=== PATIENT | female | born 1980 | race Caucasian/White ===

== ENCOUNTER 2022-04-24 22:11 | Inpatient (IN) | payer OTHER, SELFPAY ==
[2022-04-24] MEDS: ALPRAZolam 0.5 MG TABLET 1 MG PO (23:43)
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
[2022-04-25 06:54] VITALS: BP 111/73; PULSE 59; RESP 14; TEMP 37.1; O2SAT 100
[2022-04-25] MEDS: ALPRAZolam 0.5 MG TABLET 1 MG PO ×2 (08:33→15:16)
--- NOTE | 2022-04-25 08:45 | PM.EVENT ---
Event Note Date of Service: 04/25/22 Event Note: Asked to see patient for routine Medical H&P. Arrived on the unit and patient was seen screaming and yelling in the hallway. Belligerent and unable to be redirected. No appropriate to complete consult at this time. Please notify when patient is more calm and cooperative for H&P.
[2022-04-25] MEDS: HaloperidoL 5 MG TABLET PO ×2 (08:53→15:16)
[2022-04-25] MEDS: LORazepam 1 MG TABLET PO ×3 (08:53→20:29)
[2022-04-25] MEDS: PARoxetine HCL 10 MG TABLET PO (08:53)
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
[2022-04-25 20:02] VITALS: BP 126/57; PULSE 62; RESP 18; TEMP 36.9; O2SAT 97
[2022-04-25] MEDS: Acetaminophen 325 MG TABLET 650 MG PO (20:29)
[2022-04-25] MEDS: ALPRAZolam 0.5 MG TABLET PO (20:29)
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
[2022-04-26 06:00] VITALS: BP 137/88; PULSE 88; RESP 20; TEMP 36.2; O2SAT 99
--- NOTE | 2022-04-26 09:00 | ECG_ITS ---
Test Reason : QTC CHECK Blood Pressure : / mmHG Vent. Rate : 070 BPM Atrial Rate : 070 BPM P-R Int : 110 ms QRS Dur : 088 ms QT Int : 382 ms P-R-T Axes : 058 074 062 degrees QTc Int : 412 ms Sinus rhythm with short IA Otherwise normal ECG No previous ECGs available Referred By: Althea Trevino Electronically Signed By:Joon Hernandez
[2022-04-26] MEDS: LORazepam 1 MG TABLET PO (09:39)
[2022-04-26] MEDS: ALPRAZolam 0.5 MG TABLET PO ×3 (09:40→20:23)
[2022-04-26] MEDS: Benztropine Mesylate 1 MG TABLET PO (12:41)
--- NOTE | 2022-04-26 16:27 | P.PNPSI_ITS ---
Subjective Subjective Date of Service: 04/26/22 Reason For Visit: Bipolar D/O w/psychosis; substance abuse-benzodiaz Subjective Notes: Conditional Voluntary Healthcare Proxy: No Guardianship: No Medical Problems Affecting Mental Status: No Interim History: Calmer, clearer at times today, less angry and labile. Refused Olanzapine, using Haldol but with reports of EPS, stiffness of neck, face. Benztropine ordered but pt refused. Lamictal initiated. Xanax decrease to 0.5 mg bid, Adderall decreased to 20 mg daily. Visable in milieu-accepts brief interactions and is more social with peers to day. Medication Compliance: Intermittent Side effects from medications: Yes (EPS) Attending Groups: Yes Review of Systems Acute medical concerns: No Medical Review of Systems: unchanged Review of Systems Reports behavioral changes Psychiatric: Reports behavioral changes, Reports mood swings and Reports paranoia Mental Status Exam Mental Status Exam Patient Appearance: Appropriate Patient Orientation: Person, Place and Situation Level of Consciousness: Alert Patient Behavior: Guarded, Suspicious, Confused and Isolative Mood Description: Constricted Affect Description: Constricted Patient Cognition Impaired: No Ability to Follow Directions: Good Speech Pattern: Spontaneous Speech and Soft-Spoken Memory Description: Remote Impaired and Episodic Impaired Hallucinations: None Delusions: Paranoid Ideation Perceptual Disturbances: Depersonalization and Derealization Thought Content: positive for [place] Depressive Symptoms: Increased Irritability, Unhappiness, Loss of Energy and Difficulty Concentrating Abnormal Motor Activity Signs and Symptoms: Restlessness Judgement: Fair Diagnostics Vital Signs (24Hr): Vital Signs - 24 hr 04/25/22 20:02 04/26/22 06:00 Temperature 98.4 F 97.2 F Pulse Rate 62 88 Respiratory Rate 18 20 Blood Pressure 126/57 L 137/88 Pulse Oximetry 97 99 Oxygen Delivery Method Room Air Room Air Medications Medications Current Medications Acetaminophen (Acetaminophen 325 Mg Tablet) 650 mg PO Q6H PRN PRN Reason: Headache/Pain Mild Scale (1-3) Last Admin: 04/25/22 20:29 Dose: 650 mg Al Hydroxide/Mg Hydroxide (Magnesium Hydrox/Alum Hydrox 30 Ml Oral.Susp) 30 ml PO Q6H PRN PRN Reason: Heartburn/Nausea Alprazolam (Alprazolam 0.5 Mg Tablet) 0.5 mg PO TID NEVAEH Last Admin: 04/26/22 15:00 Dose: 0.5 mg Amphetamine/Dextroamphetamine (Dextroamphetamine/Amphetamine Xr 10 Mg Cap.Er.24h) 20 mg PO DAILY [facility] Last Admin: 04/26/22 11:00 Dose: Not Given Benztropine Mesylate (Benztropine Mesylate 1 Mg Tablet) 1 mg PO BID [facility] Last Admin: 04/26/22 12:41 Dose: 1 mg Haloperidol (Haloperidol 5 Mg Tablet) 5 mg PO Q4H PRN PRN Reason: psychosis, agitation Last Admin: 04/25/22 15:16 Dose: 5 mg Hydroxyzine HCl (Hydroxyzine Hcl 25 Mg Tablet) 25 mg PO BEDTIME PRN PRN Reason: Anxiety Lorazepam (Lorazepam 1 Mg Tablet) 1 mg PO Q4H PRN PRN Reason: agitation Last Admin: 04/26/22 09:39 Dose: 1 mg Magnesium Hydroxide (Milk Of Magnesia 30 Ml Oral.Susp) 30 ml PO DAILY PRN PRN Reason: Constipation Olanzapine (Olanzapine 10 Mg Tablet) 10 mg PO BEDTIME [facility] Last Admin: 04/25/22 22:08 Dose: Not Given Paroxetine HCl (Paroxetine Hcl 10 Mg Tablet) 10 mg PO DAILY [facility] Last Admin: 04/26/22 11:00 Dose: Not Given Trazodone HCl (Trazodone Hcl 50 Mg Tablet) 50 mg PO BEDTIME PRN PRN Reason: Insomnia Allergies Allergies Allergy/AdvReac Type Severity Reaction Status Date / Time cat dander [cats] Allergy Itchy Eyes Verified 04/25/22 00:28 dog dander [dogs] Allergy Itchy Eyes Verified 04/25/22 00:29 Assessment & Plan Assessment & Plan (1) Substance induced mood disorder: Status: Acute Code(s): F19.94 - Other psychoactive substance use, unspecified with psychoactive substance-induced mood disorder (2) Polysubstance abuse: Status: Acute Code(s): F19.10 - Other psychoactive substance abuse, uncomplicated (3) ADHD: Status: Acute Code(s): F90.9 - Attention-deficit hyperactivity disorder, unspecified type Plan Benztropine 1 mg bid to address pt reports of EPS Discontinue Haldol-EPS Continue Paxil, Olanzapine Continue decreased doses of Adderall/Xanax-taper Lamictal 25 mg bid I spent minutes with the patient and/or on the patient floor today, greater than?50% of which was spent counseling/coordinating care. Patient educated on: therapeutic strategies Informed Consent: does not understand Reason for contiued inpatient stay Substantial Risk for: harm to self, harm to others, inability to function and rapid decompensation
[2022-04-26 20:17] VITALS: BP 142/77; PULSE 65; RESP 17; TEMP 37.2; O2SAT 98
[2022-04-26] MEDS: Acetaminophen 325 MG TABLET 650 MG PO (20:22)
[2022-04-26] MEDS: lamoTRIgine 25 MG TABLET PO (20:23)
[2022-04-26] MEDS: OLANZapine 10 MG TABLET PO (20:23)
[2022-04-27 06:42] VITALS: BP 120/63; PULSE 42; RESP 16; TEMP 36.9; O2SAT 99
[2022-04-27] MEDS: ALPRAZolam 0.5 MG TABLET PO ×3 (09:55→20:22)
[2022-04-27] MEDS: Benztropine Mesylate 1 MG TABLET PO ×2 (09:55→20:22)
[2022-04-27] MEDS: Dextroamphetamine/Amphetamine XR 10 MG CAP.ER.24H 20 MG PO (09:55)
[2022-04-27] MEDS: lamoTRIgine 25 MG TABLET PO ×2 (09:55→20:22)
[2022-04-27] MEDS: PARoxetine HCL 10 MG TABLET PO (09:55)
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
[2022-04-27] MEDS: Milk of Magnesia 30 ML ORAL.SUSP PO (15:49)
[2022-04-27 18:00] VITALS: BP 167/91; PULSE 68; RESP 16; TEMP 36.8; O2SAT 100
[2022-04-27] MEDS: OLANZapine 10 MG TABLET PO (20:22)
[2022-04-27] MEDS: LORazepam 1 MG TABLET PO (22:45)
[2022-04-28 06:00] VITALS: BP 152/88; PULSE 67; RESP 16; TEMP 36.7; O2SAT 97
[2022-04-28] MEDS: Dextroamphetamine/Amphetamine XR 10 MG CAP.ER.24H 20 MG PO (09:34)
[2022-04-28] MEDS: lamoTRIgine 25 MG TABLET PO ×2 (09:35→20:40)
[2022-04-28] MEDS: Benztropine Mesylate 1 MG TABLET PO ×2 (09:35→20:41)
[2022-04-28] MEDS: PARoxetine HCL 10 MG TABLET PO (09:35)
[2022-04-28] MEDS: ALPRAZolam 0.5 MG TABLET PO ×3 (09:35→20:41)
[2022-04-28] MEDS: LORazepam 1 MG TABLET PO ×2 (11:10→20:40)
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
[2022-04-28 18:00] VITALS: BP 116/76; PULSE 100; TEMP 36.7; O2SAT 97
[2022-04-28] MEDS: OLANZapine 10 MG TABLET PO (20:40)
[2022-04-29 06:00] VITALS: BP 139/86; PULSE 72; RESP 16; TEMP 36.9; O2SAT 100
[2022-04-29] MEDS: lamoTRIgine 25 MG TABLET PO ×2 (08:32→19:29)
[2022-04-29] MEDS: ALPRAZolam 0.5 MG TABLET PO ×2 (08:32→14:32)
[2022-04-29] MEDS: PARoxetine HCL 10 MG TABLET PO (08:32)
[2022-04-29] MEDS: Dextroamphetamine/Amphetamine XR 10 MG CAP.ER.24H 20 MG PO (08:32)
[2022-04-29] MEDS: Benztropine Mesylate 1 MG TABLET PO ×2 (08:32→19:29)
[2022-04-29] MEDS: LORazepam 1 MG TABLET PO ×2 (10:33→19:29)
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
[2022-04-29] MEDS: OLANZapine 7.5 MG TABLET 15 MG PO (19:29)
[2022-04-29] MEDS: ALPRAZolam 0.25 MG TABLET PO (19:58)
[2022-04-29 20:19] VITALS: BP 145/89; PULSE 78; RESP 18; TEMP 37.1; O2SAT 98
[2022-04-29] MEDS: Dry Mouth Spray 60 ML SPRAY 1 SPRAY MUCOUS MEM (20:21)
[2022-04-30 06:00] VITALS: BP 126/70; PULSE 72; RESP 18; TEMP 36.7; O2SAT 95
[2022-04-30] MEDS: Dextroamphetamine/Amphetamine XR 5 MG CAP.ER.24H 15 MG PO (08:02)
[2022-04-30] MEDS: ALPRAZolam 0.25 MG TABLET PO ×3 (08:02→20:16)
[2022-04-30] MEDS: lamoTRIgine 25 MG TABLET PO ×2 (08:03→20:15)
[2022-04-30] MEDS: PARoxetine HCL 10 MG TABLET PO (08:03)
[2022-04-30] MEDS: Benztropine Mesylate 1 MG TABLET PO ×2 (08:03→20:16)
--- NOTE | 2022-04-30 14:33 | PC.NURSE ---
Patient approached T/W stating, I know whats going on around here , before T/W could answer she began staring at the computer screen and questioned what was on the screen.(random pt comments recognizing staff). Pt then said, I',m really angry, red in face, and became tearful. T/W asked what was upsetting here and she said, don't play me like that, I can read your mind . Pt then walked away, went up the rose and sat on the floor.
[2022-04-30] MEDS: LORazepam 1 MG TABLET PO (16:52)
[2022-04-30 16:55] VITALS: BP 123/76; PULSE 72; TEMP 36.7
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
[2022-04-30] MEDS: OLANZapine 7.5 MG TABLET 15 MG PO (20:15)
[2022-04-30] MEDS: Acetaminophen 325 MG TABLET 650 MG PO (20:17)
[2022-05-01 06:34] VITALS: BP 121/66; PULSE 76; RESP 17; TEMP 36.6; O2SAT 98
[2022-05-01] MEDS: Dextroamphetamine/Amphetamine XR 5 MG CAP.ER.24H 15 MG PO (08:41)
[2022-05-01] MEDS: Benztropine Mesylate 1 MG TABLET PO ×2 (08:42→22:45)
[2022-05-01] MEDS: PARoxetine HCL 10 MG TABLET PO (08:42)
[2022-05-01] MEDS: lamoTRIgine 25 MG TABLET PO ×2 (08:42→22:46)
[2022-05-01] MEDS: ALPRAZolam 0.25 MG TABLET PO ×3 (08:42→22:46)
[2022-05-01] MEDS: Dry Mouth Spray 60 ML SPRAY 1 SPRAY MUCOUS MEM (11:07)
[2022-05-01] MEDS: LORazepam 1 MG TABLET PO (13:10)
--- NOTE | 2022-05-01 13:37 | P.CONGS_ITS ---
History of Present Illness Consult details Consult date: 05/01/22 Narrative: 41-year-old female admitted to the psych unit because of bipolar disorder with psychosis, referred to me because of a cyst on the right buttock. She says that she has had an area of pain, swelling tenderness for several days now on the right buttock. She says that this started to drain last night. She says she has history of cysts on the other areas of her buttocks in the past. She never had an I and D before. She otherwise says she feels well overall. She denies any fevers. Review of Systems Constitutional: Constitutional: Denies chills and Denies fever(s) Cardiovascular: Cardiovascular: Denies chest pain, Denies dyspnea and Denies dyspnea on exertion Respiratory: Respiratory: Denies cough, Denies dyspnea and Denies dyspnea on exertion Gastrointestinal: Gastrointestinal: Denies hematochezia and Denies change in bowel habits Genitourinary: Genitourinary: Denies hematuria Musculoskeletal: Musculoskeletal: Denies back pain and Denies limited range of motion Neurologic: Denies focal weakness and Denies convulsions Psychiatric: Psychiatric: Reports depression and Reports mood swings PMFSH Social History Social History Household Members: Other Household Members Other:: pt reports recently becoming homeless Housing: Homeless Do you presently have visiting nurse or other home services: No Unable to assess alcohol history related to: Unknown Patient Tobacco Use Status: Never used Tobacco e-Cigarette/Vaping Use: Never Used Use of substances other than those prescribed or required for medical reasons: Yes Substance Use Type: Amphetamines, Crack/Cocaine, Hallucinogens, Heroin, Marijuana, Opiates and Prescription Drugs Substance Use Frequency: Chronic Longstanding Last Used Substance: Days (ago) Currently Displaying Signs/Symptoms of Drug Intoxication Withdrawal: No Any prior treatment program specific to substance use: Yes Have you been hit, kicked, punched, or otherwise hurt by someone within the past year? If so, by whom?: No (pt refused to answer) Do you feel safe in your current relationship?: Yes Is there a partner from a previous relationship who is making you feel unsafe now?: No Are you made to feel afraid or neglected: Yes (feels like her family is after her) Advance Directives: No Advance Directives Information Provided: No Advance Directives on File: No Do you have thoughts of harming others: None Do you have a plan to hurt others: No Plan Recently lost weight without trying: Unsure Eating poorly because of decreased appetite: Yes Nutrition Risks: No Nutritional Risk Patient : No : No Poor oral hygiene: No service: No Sexual orientation: Straight/Heterosexual Meds Allergies Allergy/AdvReac Type Severity Reaction Status Date / Time cat dander [cats] Allergy Itchy Eyes Verified 04/25/22 00:28 dog dander [dogs] Allergy Itchy Eyes Verified 04/25/22 00:29 Active Medications: Current Medications Acetaminophen (Acetaminophen 325 Mg Tablet) 650 mg PO Q6H PRN PRN Reason: Headache/Pain Mild Scale (1-3) Last Admin: 04/30/22 20:17 Dose: 650 mg Al Hydroxide/Mg Hydroxide (Magnesium Hydrox/Alum Hydrox 30 Ml Oral.Susp) 30 ml PO Q6H PRN PRN Reason: Heartburn/Nausea Alprazolam (Alprazolam 0.25 Mg Tablet) 0.25 mg PO TID [facility] Last Admin: 05/01/22 08:42 Dose: 0.25 mg Amphetamine/Dextroamphetamine (Dextroamphetamine/Amphetamine Xr 5 Mg Cap.Er.24h) 15 mg PO DAILY [facility] Last Admin: 05/01/22 08:41 Dose: 15 mg Benztropine Mesylate (Benztropine Mesylate 1 Mg Tablet) 1 mg PO BID [facility] Last Admin: 05/01/22 08:42 Dose: 1 mg Hydroxyzine HCl (Hydroxyzine Hcl 25 Mg Tablet) 25 mg PO BEDTIME PRN PRN Reason: Anxiety Lamotrigine (Lamotrigine 25 Mg Tablet) 25 mg PO BID [facility] Last Admin: 05/01/22 08:42 Dose: 25 mg Lorazepam (Lorazepam 1 Mg Tablet) 1 mg PO Q4H PRN PRN Reason: agitation Last Admin: 05/01/22 13:10 Dose: 1 mg Magnesium Hydroxide (Milk Of Magnesia 30 Ml Oral.Susp) 30 ml PO DAILY PRN PRN Reason: Constipation Last Admin: 04/27/22 15:49 Dose: 30 ml Olanzapine (Olanzapine 5 Mg Tablet) 5 mg PO Q4H PRN PRN Reason: lability, agitation Olanzapine (Olanzapine 7.5 Mg Tablet) 15 mg PO BEDTIME [facility] Last Admin: 04/30/22 20:15 Dose: 15 mg Olanzapine (Olanzapine 5 Mg Tablet) 5 mg PO DAILY [facility] Saliva Substitute (Dry Mouth [place] 60 Ml [place]) 1 spray MUCOUS MEM Q2H PRN PRN Reason: Dry Mouth Last Admin: 05/01/22 11:07 Dose: 1 spray Trazodone HCl (Trazodone Hcl 50 Mg Tablet) 50 mg PO BEDTIME PRN PRN Reason: Insomnia Home Medications Medication Instructions Recorded Confirmed Last Taken Type alprazolam 1 mg tablet (Xanax) 1 mg PO TID 04/25/22 04/25/22 01/14/22 History dextroamphetamine-amphetamine ER 15 mg PO BID 04/25/22 04/25/22 01/14/22 History 15 mg 24hr capsule,extend release (Adderall XR) paroxetine HCl 10 mg tablet (Paxil) 10 mg PO DAILY 04/25/22 04/25/22 01/14/22 History Physical Exam Vital Signs: Vital Signs: Last Vital Signs Temp 97.8 F 05/01/22 06:34 Pulse 76 05/01/22 06:34 Resp 17 05/01/22 06:34 BP 121/66 05/01/22 06:34 Pulse Ox 98 05/01/22 06:34 O2 Del Method 05/01/22 06:34 Const: General: comfortable and no acute distress Orientation/consciousness: patient oriented x3 Neck: Neck: Yes no lymphadenopathy Resp: Auscultation: clear to auscultation bilaterally Cardio: Rhythm: regular rhythm GI: Palpation (GI): Soft to palpation, nontender and no guarding Back/Spine/Pelvis: Other: Right buttock with area of cystic induration about 2.5 cm, spontaneously draining, some redness of the pending skin localized to the cyst Neuro: General: patient oriented x3 Results Labs Labs: All other labs normal. Assessment and Plan (1) Cyst of buttocks: Status: Acute She has an area of cystic induration with drainage on the right buttock. This appears to be consistent with an infected dermal cyst. I was able to express pus from the area. I am going to recommend starting her on oral antibiotics with doxycycline. I will see her again tomorrow to re-examine this. If this does not appear improved or not adequately draining, I may do an I and D at bedside under local anesthesia. I have instructed her to do warm compresses the area 3 times a day. Procedures Date of Service Date of Service: 05/01/22
[2022-05-01] MEDS: Acetaminophen 325 MG TABLET 650 MG PO (14:00)
--- NOTE | 2022-05-01 18:03 | HO.PSYCHPN ---
Subjective Subjective Date of Service: 05/01/22 Reason For Visit: Bipolar D/O w/psychosis; substance abuse-benzodiaz Subjective Notes: 3 Day Healthcare Proxy: No Guardianship: No Medical Problems Affecting Mental Status: No Interim History: Clearer today-less lability, decrease in confusion. Discussed practical discharge planning, agreed to retract TDN and continue to work with team on medications and treatment planning. Pt discussed some of her discharge options and concerns. No grandiosity, no delusional content, but able to have a focused grounded discussion of her needs and her care. Seen by Dr. Hanna for initial treatment of abscess on her buttock. Medication Compliance: Yes Side effects from medications: No Attending Groups: Intermittent Review of Systems Acute medical concerns: No Abscess on her buttock is being addressed by Dr. Hanna. Medical Review of Systems: unchanged Review of Systems Psychiatric: Reports anxiety, Reports mood swings, Reports homicidal ideation (denies) and Reports suicidal ideation (denies) Mental Status Exam Mental Status Exam Patient Appearance: Appropriate Patient Orientation: Person, Place, Time and Situation Level of Consciousness: Alert Patient Behavior: Talkative, Cooperative and Good Eye Contact Mood Description: Appropriate Affect Description: Constricted Patient Cognition Impaired: No Ability to Follow Directions: Good Speech Pattern: Spontaneous Speech Memory Description: Intact Hallucinations: None Delusions: Not Present Thought Process: Intact and Goal Oriented Thought Content: positive for Intact, positive for Circumstantial and positive for Goal Oriented Judgement: Good Diagnostics Vital Signs (24Hr): Vital Signs - 24 hr 05/01/22 06:34 Temperature 97.8 F Pulse Rate 76 Respiratory Rate 17 Blood Pressure 121/66 Pulse Oximetry 98 Oxygen Delivery Method Room Air Medications Medications Current Medications Acetaminophen (Acetaminophen 325 Mg Tablet) 650 mg PO Q6H PRN PRN Reason: Headache/Pain Mild Scale (1-3) Last Admin: 05/01/22 14:00 Dose: 650 mg Al Hydroxide/Mg Hydroxide (Magnesium Hydrox/Alum Hydrox 30 Ml Oral.Susp) 30 ml PO Q6H PRN PRN Reason: Heartburn/Nausea Alprazolam (Alprazolam 0.25 Mg Tablet) 0.25 mg PO TID [facility] Last Admin: 05/01/22 14:00 Dose: 0.25 mg Amphetamine/Dextroamphetamine (Dextroamphetamine/Amphetamine Xr 5 Mg Cap.Er.24h) 15 mg PO DAILY [facility] Last Admin: 05/01/22 08:41 Dose: 15 mg Benztropine Mesylate (Benztropine Mesylate 1 Mg Tablet) 1 mg PO BID [facility] Last Admin: 05/01/22 08:42 Dose: 1 mg Doxycycline Hyclate (Doxycycline Hyclate 100 Mg Tablet) 100 mg PO Q12H [facility] Hydroxyzine HCl (Hydroxyzine Hcl 25 Mg Tablet) 25 mg PO BEDTIME PRN PRN Reason: Anxiety Lamotrigine (Lamotrigine 25 Mg Tablet) 25 mg PO BID [facility] Last Admin: 05/01/22 08:42 Dose: 25 mg Lorazepam (Lorazepam 1 Mg Tablet) 1 mg PO Q4H PRN PRN Reason: agitation Last Admin: 05/01/22 13:10 Dose: 1 mg Magnesium Hydroxide (Milk Of Magnesia 30 Ml Oral.Susp) 30 ml PO DAILY PRN PRN Reason: Constipation Last Admin: 04/27/22 15:49 Dose: 30 ml Olanzapine (Olanzapine 5 Mg Tablet) 5 mg PO Q4H PRN PRN Reason: lability, agitation Olanzapine (Olanzapine 7.5 Mg Tablet) 15 mg PO BEDTIME [facility] Last Admin: 04/30/22 20:15 Dose: 15 mg Olanzapine (Olanzapine 5 Mg Tablet) 5 mg PO DAILY [facility] Paroxetine HCl (Paroxetine Hcl 10 Mg Tablet) 5 mg PO DAILY [facility] Stop: 05/07/22 10:00 Saliva Substitute (Dry Mouth [place] 60 Ml [place]) 1 spray MUCOUS MEM Q2H PRN PRN Reason: Dry Mouth Last Admin: 05/01/22 11:07 Dose: 1 spray Trazodone HCl (Trazodone Hcl 50 Mg Tablet) 50 mg PO BEDTIME PRN PRN Reason: Insomnia Allergies Allergies Allergy/AdvReac Type Severity Reaction Status Date / Time cat dander [cats] Allergy Itchy Eyes Verified 04/25/22 00:28 dog dander [dogs] Allergy Itchy Eyes Verified 04/25/22 00:29 Assessment & Plan Assessment & Plan (1) Substance induced mood disorder: Status: Acute Code(s): F19.94 - Other psychoactive substance use, unspecified with psychoactive substance-induced mood disorder (2) ADHD: Status: Acute Code(s): F90.9 - Attention-deficit hyperactivity disorder, unspecified type (3) Polysubstance abuse: Status: Acute Code(s): F19.10 - Other psychoactive substance abuse, uncomplicated Plan Continue current plan of care. Discharge planning I spent minutes with the patient and/or on the patient floor today, greater than?50% of which was spent counseling/coordinating care. Patient educated on: medication risk/benefits and therapeutic strategies Informed Consent: understands and further education needed Reason for contiued inpatient stay Substantial Risk for: rapid decompensation
--- NOTE | 2022-05-01 20:28 | PC.NURSE ---
Patient was given her first dose of Doxycycline today at 1400 and was due again at 0200. This news writer texted the surgeon Dr. Hanna to see if the second dose could be given earlier or tomorrow. Dr. Hanna okay with 2nd dose being given tomorrow 05/02/22 at 0900 to get patient on a manageable schedule. Patient aware.
[2022-05-01 20:40] VITALS: BP 144/68; PULSE 77; TEMP 37.1; O2SAT 98
[2022-05-01] MEDS: OLANZapine 7.5 MG TABLET 15 MG PO (22:46)
[2022-05-02 06:46] VITALS: BP 119/73; PULSE 71; RESP 18; TEMP 36.5; O2SAT 96
[2022-05-02] MEDS: PARoxetine HCL 10 MG TABLET 5 MG PO (07:56)
[2022-05-02] MEDS: lamoTRIgine 25 MG TABLET PO ×2 (07:57→20:41)
[2022-05-02] MEDS: OLANZapine 5 MG TABLET PO (07:58)
[2022-05-02] MEDS: Dextroamphetamine/Amphetamine XR 5 MG CAP.ER.24H 15 MG PO (07:58)
[2022-05-02] MEDS: Benztropine Mesylate 1 MG TABLET PO ×2 (07:58→20:41)
[2022-05-02] MEDS: ALPRAZolam 0.25 MG TABLET PO ×3 (07:58→20:41)
[2022-05-02] MEDS: LORazepam 1 MG TABLET PO (08:50)
[2022-05-02] MEDS: Acetaminophen 325 MG TABLET 650 MG PO ×2 (08:50→20:45)
--- NOTE | 2022-05-02 09:32 | W.PM.OPN ---
Operative Note Operative Note Date of Service: 05/02/22 Narrative: Preop diagnosis: Right buttock abscess Postop diagnosis: Right buttock abscess Procedure: I and D the right buttock abscess under local anesthesia Surgeon: Yobani Hanna MD The patient is a 41 year female with area of drainage, induration on the right buttock. She continues to have pain swelling. Therefore explained to her that it may be best to proceed with an I and D under local anesthesia. I explained to her the technique of this procedure. I reviewed the risks, benefits, and alternatives. She had given verbal consent. She was placed prone on the exam table. The area of the abscess which was about a 3 cm induration with cellulitis prepped and draped. Lidocaine 1% was used for local anesthesia. I made a cruciate incision on 1 area 1st using blade 11. And this was carried down through the full-thickness of the skin subcutaneous fat. An abscess cavity was entered. Probed the cavity with a Q-tip pus was evacuated. There was another separate area of induration just superior to this. This was also infiltrated with lidocaine 1%. I also made a cruciate incision with a blade 11. Another cavity, much smaller in size was entered and because was evacuated I applied dry dressings. Cultures were taken. She tolerated procedure well. There were no complications noted. She may have oral p.o. medications for pain take Tylenol or ibuprofen.
[2022-05-02] MEDS: Ibuprofen 800 MG TABLET PO (14:24)
--- NOTE | 2022-05-02 17:30 | P.PNPSI_ITS ---
Subjective Subjective Date of Service: 05/02/22 Reason For Visit: Bipolar D/O w/psychosis; substance abuse-benzodiaz Subjective Notes: Conditional Voluntary Healthcare Proxy: No Guardianship: No Medical Problems Affecting Mental Status: No Interim History: Pt completed I&D on buttock abscess today. Using Ibuprofen for pain. Pt did learn today that she cannot live with her mother or her children and their father. She also learned that she lost her job with [employer]. Will attempt to draft a letter for absence due to illness. She is angry-asked for prn-Haldol ordered which she refused to take. Vraylar will re-start 05/03 as pt had requested. Zyprexa will continue currently to address mood/picking symtoms. Will transition to Vraylar when titrated. Pt using ACT Gum for dry mouth. Medication Compliance: Yes Side effects from medications: No Attending Groups: Intermittent Review of Systems Acute medical concerns: No Medical Review of Systems: unchanged Review of Systems Psychiatric: Reports anxiety, Reports depression, Reports irritability and Reports mood swings Mental Status Exam Mental Status Exam Patient Appearance: Appropriate Patient Orientation: Person, Place, Time and Situation Level of Consciousness: Alert Patient Behavior: Talkative and Good Eye Contact Mood Description: Anxious and Sad Affect Description: Flat Patient Cognition Impaired: No Ability to Follow Directions: Good Speech Pattern: Spontaneous Speech Memory Description: Episodic Impaired Hallucinations: None Delusions: Paranoid Ideation and Grandiose (Tells team I am a genie in a bottle ) Thought Process: Distracted Thought Content: positive for Suicidal Ideation (denies) and positive for Homicidal Ideation (denies) Judgement: Fair Diagnostics Vital Signs (24Hr): Vital Signs - 24 hr 05/01/22 20:40 05/02/22 06:46 Temperature 98.8 F 97.7 F Pulse Rate 77 71 Respiratory Rate 18 Blood Pressure 144/68 H 119/73 Pulse Oximetry 98 96 Oxygen Delivery Method Room Air Room Air Medications Medications Current Medications Acetaminophen (Acetaminophen 325 Mg Tablet) 650 mg PO Q6H PRN PRN Reason: Headache/Pain Mild Scale (1-3) Last Admin: 05/02/22 08:50 Dose: 650 mg Al Hydroxide/Mg Hydroxide (Magnesium Hydrox/Alum Hydrox 30 Ml Oral.Susp) 30 ml PO Q6H PRN PRN Reason: Heartburn/Nausea Alprazolam (Alprazolam 0.25 Mg Tablet) 0.25 mg PO TID [facility] Last Admin: 05/02/22 14:16 Dose: 0.25 mg Amphetamine/Dextroamphetamine (Dextroamphetamine/Amphetamine Xr 5 Mg Cap.Er.24h) 15 mg PO DAILY [facility] Last Admin: 05/02/22 07:58 Dose: 15 mg Benztropine Mesylate (Benztropine Mesylate 1 Mg Tablet) 1 mg PO BID [facility] Last Admin: 05/02/22 07:58 Dose: 1 mg Doxycycline Hyclate (Doxycycline Hyclate 100 Mg Tablet) 100 mg PO Q12H [facility] Last Admin: 05/02/22 07:58 Dose: 100 mg Haloperidol (Haloperidol 5 Mg Tablet) 5 mg PO Q4H PRN PRN Reason: aggressive agitation Hydroxyzine HCl (Hydroxyzine Hcl 25 Mg Tablet) 25 mg PO BEDTIME PRN PRN Reason: Anxiety Ibuprofen (Ibuprofen 800 Mg Tablet) 800 mg PO Q8H PRN PRN Reason: Pain, Mild (Pain Scale 1-3) Last Admin: 05/02/22 14:24 Dose: 800 mg Lamotrigine (Lamotrigine 25 Mg Tablet) 25 mg PO BID [facility] Last Admin: 05/02/22 07:57 Dose: 25 mg Lorazepam (Lorazepam 1 Mg Tablet) 1 mg PO Q4H PRN PRN Reason: agitation Last Admin: 05/02/22 08:50 Dose: 1 mg Magnesium Hydroxide (Milk Of Magnesia 30 Ml Oral.Susp) 30 ml PO DAILY PRN PRN Reason: Constipation Last Admin: 04/27/22 15:49 Dose: 30 ml Pt Own Medication ( (Act Lozenge 1 Tab)) 1 tab PO BID PRN PRN Reason: Dry Mouth Non-Formulary Medication (Patient Own Medication) 1 each PO BID PRN PRN Reason: Dry Mouth Olanzapine (Olanzapine 5 Mg Tablet) 5 mg PO Q4H PRN PRN Reason: lability, agitation Olanzapine (Olanzapine 7.5 Mg Tablet) 15 mg PO BEDTIME [facility] Last Admin: 05/01/22 22:46 Dose: 15 mg Olanzapine (Olanzapine 5 Mg Tablet) 5 mg PO DAILY [facility] Last Admin: 05/02/22 07:58 Dose: 5 mg Paroxetine HCl (Paroxetine Hcl 10 Mg Tablet) 5 mg PO DAILY [facility] Stop: 05/07/22 10:00 Last Admin: 05/02/22 07:56 Dose: 5 mg Saliva Substitute (Dry Mouth [place] 60 Ml [place]) 1 spray MUCOUS MEM Q2H PRN PRN Reason: Dry Mouth Last Admin: 05/01/22 11:07 Dose: 1 spray Trazodone HCl (Trazodone Hcl 50 Mg Tablet) 50 mg PO BEDTIME PRN PRN Reason: Insomnia Allergies Allergies Allergy/AdvReac Type Severity Reaction Status Date / Time cat dander [cats] Allergy Itchy Eyes Verified 04/25/22 00:28 dog dander [dogs] Allergy Itchy Eyes Verified 04/25/22 00:29 Assessment & Plan Assessment & Plan (1) Substance induced mood disorder: Status: Acute Code(s): F19.94 - Other psychoactive substance use, unspecified with psychoactive substance-induced mood disorder (2) ADHD: Status: Acute Code(s): F90.9 - Attention-deficit hyperactivity disorder, unspecified type (3) Polysubstance abuse: Status: Acute Code(s): F19.10 - Other psychoactive substance abuse, uncomplicated Plan Continue current plan of care. Discharge planning 05/02/22 Vraylar 3 mg a.m. Discontinue a.m. Olanzapine Discharge planning I spent minutes with the patient and/or on the patient floor today, greater than?50% of which was spent counseling/coordinating care. Patient educated on: medication risk/benefits and therapeutic strategies Informed Consent: understands and further education needed Reason for contiued inpatient stay Substantial Risk for: rapid decompensation
[2022-05-02 18:00] VITALS: BP 123/69; PULSE 67; RESP 18; TEMP 36.8
[2022-05-02] MEDS: OLANZapine 7.5 MG TABLET 15 MG PO (20:41)
[2022-05-03] MEDS: Dextroamphetamine/Amphetamine XR 5 MG CAP.ER.24H 15 MG PO (08:53)
[2022-05-03] MEDS: Cariprazine HCl 3 MG CAPSULE PO (08:54)
[2022-05-03] MEDS: lamoTRIgine 25 MG TABLET PO ×2 (08:54→20:42)
[2022-05-03] MEDS: PARoxetine HCL 10 MG TABLET 5 MG PO (08:54)
[2022-05-03] MEDS: ALPRAZolam 0.25 MG TABLET PO ×3 (08:54→20:42)
[2022-05-03] MEDS: Benztropine Mesylate 1 MG TABLET PO ×2 (08:54→20:42)
[2022-05-03 12:28] VITALS: BP 116/85; PULSE 68; RESP 16; TEMP 37; O2SAT 100
[2022-05-03] MEDS: LORazepam 1 MG TABLET PO ×2 (12:48→21:49)
--- NOTE | 2022-05-03 15:03 | P.PNGS_ITS ---
Subjective Subjective Date of Service: 05/03/22 Interval history: no new complaints denies severe pain Physical Exam Vital Signs: Vital Signs: Last Vital Signs Temp 98.6 F 05/03/22 12:28 Pulse 68 05/03/22 12:28 Resp 16 05/03/22 12:28 BP 116/85 05/03/22 12:28 Pulse Ox 100 05/03/22 12:28 O2 Del Method 05/03/22 12:28 Const: General: comfortable and no acute distress Back/Spine/Pelvis: Other: I and D sites on R buttock clean, less induration, no pus or fluctuance Objective Data Active Medications Acetaminophen (Acetaminophen 325 Mg Tablet) 650 mg PO Q6H PRN PRN Reason: Headache/Pain Mild Scale (1-3) Last Admin: 05/02/22 20:45 Dose: 650 mg Documented By: GUERITA Al Hydroxide/Mg Hydroxide (Magnesium Hydrox/Alum Hydrox 30 Ml Oral.Susp) 30 ml PO Q6H PRN PRN Reason: Heartburn/Nausea Alprazolam (Alprazolam 0.25 Mg Tablet) 0.25 mg PO TID [facility] Last Admin: 05/03/22 14:30 Dose: 0.25 mg Documented By: PABLO Amphetamine/Dextroamphetamine (Dextroamphetamine/Amphetamine Xr 5 Mg Cap.Er.24h) 15 mg PO DAILY [facility] Last Admin: 05/03/22 08:53 Dose: 15 mg Documented By: JULIO Benztropine Mesylate (Benztropine Mesylate 1 Mg Tablet) 1 mg PO BID [facility] Last Admin: 05/03/22 08:54 Dose: 1 mg Documented By: JULIO Cariprazine (Cariprazine Hcl 3 Mg Capsule) 3 mg PO DAILY [facility] Last Admin: 05/03/22 08:54 Dose: 3 mg Documented By: JULIO Doxycycline Hyclate (Doxycycline Hyclate 100 Mg Tablet) 100 mg PO Q12H [facility] Last Admin: 05/03/22 08:54 Dose: 100 mg Documented By: JULIO Hydroxyzine HCl (Hydroxyzine Hcl 25 Mg Tablet) 25 mg PO BEDTIME PRN PRN Reason: Anxiety Ibuprofen (Ibuprofen 800 Mg Tablet) 800 mg PO Q8H PRN PRN Reason: Pain, Mild (Pain Scale 1-3) Last Admin: 05/02/22 14:24 Dose: 800 mg Documented By: PABLO Lamotrigine (Lamotrigine 25 Mg Tablet) 25 mg PO BID [facility] Last Admin: 05/03/22 08:54 Dose: 25 mg Documented By: JULIO Lorazepam (Lorazepam 1 Mg Tablet) 1 mg PO Q4H PRN PRN Reason: agitation Last Admin: 05/03/22 12:48 Dose: 1 mg Documented By: PABLO Magnesium Hydroxide (Milk Of Magnesia 30 Ml Oral.Susp) 30 ml PO DAILY PRN PRN Reason: Constipation Last Admin: 04/27/22 15:49 Dose: 30 ml Documented By: AVEL Pt Own Medication ( (Act Lozenge 1 Tab)) 1 tab PO BID PRN PRN Reason: Dry Mouth Non-Formulary Medication (Patient Own Medication) 1 each PO BID PRN PRN Reason: Dry Mouth Olanzapine (Olanzapine 5 Mg Tablet) 5 mg PO Q4H PRN PRN Reason: lability, agitation Olanzapine (Olanzapine 7.5 Mg Tablet) 15 mg PO BEDTIME [facility] Last Admin: 05/02/22 20:41 Dose: 15 mg Documented By: GUERITA Paroxetine HCl (Paroxetine Hcl 10 Mg Tablet) 5 mg PO DAILY [facility] Stop: 05/07/22 10:00 Last Admin: 05/03/22 08:54 Dose: 5 mg Documented By: JULIO Saliva Substitute (Dry Mouth [place] 60 Ml [place]) 1 spray MUCOUS MEM Q2H PRN PRN Reason: Dry Mouth Last Admin: 05/01/22 11:07 Dose: 1 spray Documented By: THADDEUS Trazodone HCl (Trazodone Hcl 50 Mg Tablet) 50 mg PO BEDTIME PRN PRN Reason: Insomnia Microbiology Microbiology Results: Microbiology 05/02/22 08:44 Gram Stain - Final Buttock Routine Culture - Preliminary Staphylococcus aureus Procedures Date of Service Date of Service: 05/03/22 Progress Note: A&P Assessment and plan (1) Abscess of buttock: Status: Acute Assessment and Plan: S/P I and D dressing changed ok to use large bandaid complete oral antibiotic x 1 week Time Spent With Patient Time: Total time spent is greater than 50% in coordination of care (as documented) at patient's floor/unit and/or counseling patient: Quality Stroke Does the patient have a stroke diagnosis?: No VTE Prior VTE?: No VTE Risk Level:: Medical - low VTE Device Contraindication: Treatment Not Indicated VTE Drug Contraindication: Treatment Not Indicated
--- NOTE | 2022-05-03 15:06 | HO.PSYCHPN ---
Subjective Subjective Date of Service: 05/03/22 Reason For Visit: Bipolar D/O w/psychosis; substance abuse-benzodiaz Subjective Notes: Conditional Voluntary Healthcare Proxy: No Guardianship: No Medical Problems Affecting Mental Status: No Interim History: Reports she is feeling well. Alert, clear, at times she does make statements which are not on point, but does report she has an expanded sense of humor. Vraylar re-started. She reports no issues with this, no SE Medication Compliance: Yes Side effects from medications: No Attending Groups: Intermittent Review of Systems Acute medical concerns: No Medical Review of Systems: unchanged Review of Systems Psychiatric: Reports no additional psychiatric complaints Mental Status Exam Mental Status Exam Patient Appearance: Appropriate Patient Orientation: Person, Place, Time and Situation Level of Consciousness: Alert Patient Behavior: Talkative and Good Eye Contact Mood Description: Calm Affect Description: Calm Patient Cognition Impaired: No Ability to Follow Directions: Good Speech Pattern: Spontaneous Speech Memory Description: Episodic Impaired Hallucinations: None Delusions: Not Present Thought Process: Intact and Goal Oriented Thought Content: positive for Tangential (mild) Depressive Symptoms: Diff. Making Decisions, Low Self Esteem and Difficulty Concentrating Judgement: Fair Diagnostics Vital Signs (24Hr): Vital Signs - 24 hr 05/02/22 18:00 05/03/22 12:28 Temperature 98.3 F 98.6 F Pulse Rate 67 68 Respiratory Rate 18 16 Blood Pressure 123/69 116/85 Pulse Oximetry 100 Oxygen Delivery Method Room Air Room Air Medications Medications Current Medications Acetaminophen (Acetaminophen 325 Mg Tablet) 650 mg PO Q6H PRN PRN Reason: Headache/Pain Mild Scale (1-3) Last Admin: 05/02/22 20:45 Dose: 650 mg Al Hydroxide/Mg Hydroxide (Magnesium Hydrox/Alum Hydrox 30 Ml Oral.Susp) 30 ml PO Q6H PRN PRN Reason: Heartburn/Nausea Alprazolam (Alprazolam 0.25 Mg Tablet) 0.25 mg PO TID [facility] Last Admin: 05/03/22 14:30 Dose: 0.25 mg Amphetamine/Dextroamphetamine (Dextroamphetamine/Amphetamine Xr 5 Mg Cap.Er.24h) 15 mg PO DAILY [facility] Last Admin: 05/03/22 08:53 Dose: 15 mg Benztropine Mesylate (Benztropine Mesylate 1 Mg Tablet) 1 mg PO BID [facility] Last Admin: 05/03/22 08:54 Dose: 1 mg Cariprazine (Cariprazine Hcl 3 Mg Capsule) 3 mg PO DAILY [facility] Last Admin: 05/03/22 08:54 Dose: 3 mg Doxycycline Hyclate (Doxycycline Hyclate 100 Mg Tablet) 100 mg PO Q12H [facility] Last Admin: 05/03/22 08:54 Dose: 100 mg Hydroxyzine HCl (Hydroxyzine Hcl 25 Mg Tablet) 25 mg PO BEDTIME PRN PRN Reason: Anxiety Ibuprofen (Ibuprofen 800 Mg Tablet) 800 mg PO Q8H PRN PRN Reason: Pain, Mild (Pain Scale 1-3) Last Admin: 05/02/22 14:24 Dose: 800 mg Lamotrigine (Lamotrigine 25 Mg Tablet) 25 mg PO BID [facility] Last Admin: 05/03/22 08:54 Dose: 25 mg Lorazepam (Lorazepam 1 Mg Tablet) 1 mg PO Q4H PRN PRN Reason: agitation Last Admin: 05/03/22 12:48 Dose: 1 mg Magnesium Hydroxide (Milk Of Magnesia 30 Ml Oral.Susp) 30 ml PO DAILY PRN PRN Reason: Constipation Last Admin: 04/27/22 15:49 Dose: 30 ml Pt Own Medication ( (Act Lozenge 1 Tab)) 1 tab PO BID PRN PRN Reason: Dry Mouth Non-Formulary Medication (Patient Own Medication) 1 each PO BID PRN PRN Reason: Dry Mouth Olanzapine (Olanzapine 5 Mg Tablet) 5 mg PO Q4H PRN PRN Reason: lability, agitation Olanzapine (Olanzapine 7.5 Mg Tablet) 15 mg PO BEDTIME [facility] Last Admin: 05/02/22 20:41 Dose: 15 mg Paroxetine HCl (Paroxetine Hcl 10 Mg Tablet) 5 mg PO DAILY [facility] Stop: 05/07/22 10:00 Last Admin: 05/03/22 08:54 Dose: 5 mg Saliva Substitute (Dry Mouth [place] 60 Ml [place]) 1 spray MUCOUS MEM Q2H PRN PRN Reason: Dry Mouth Last Admin: 05/01/22 11:07 Dose: 1 spray Trazodone HCl (Trazodone Hcl 50 Mg Tablet) 50 mg PO BEDTIME PRN PRN Reason: Insomnia Allergies Allergies Allergy/AdvReac Type Severity Reaction Status Date / Time cat dander [cats] Allergy Itchy Eyes Verified 04/25/22 00:28 dog dander [dogs] Allergy Itchy Eyes Verified 04/25/22 00:29 Assessment & Plan Assessment & Plan (1) Substance induced mood disorder: Status: Acute Code(s): F19.94 - Other psychoactive substance use, unspecified with psychoactive substance-induced mood disorder (2) ADHD: Status: Acute Code(s): F90.9 - Attention-deficit hyperactivity disorder, unspecified type Plan 05/03/22- Continue current plan of care. I spent minutes with the patient and/or on the patient floor today, greater than?50% of which was spent counseling/coordinating care. Patient educated on: therapeutic strategies Informed Consent: understands Reason for contiued inpatient stay Substantial Risk for: rapid decompensation
[2022-05-03 18:00] VITALS: BP 128/67; PULSE 78; TEMP 37; O2SAT 99
[2022-05-03] MEDS: OLANZapine 7.5 MG TABLET 15 MG PO (20:42)
[2022-05-03] MEDS: Acetaminophen 325 MG TABLET 650 MG PO (23:03)
[2022-05-04 06:00] VITALS: BP 106/60; PULSE 71; RESP 18; TEMP 36.7; O2SAT 98
[2022-05-04] MEDS: PARoxetine HCL 10 MG TABLET 5 MG PO (08:56)
[2022-05-04] MEDS: Benztropine Mesylate 1 MG TABLET PO ×2 (08:56→21:34)
[2022-05-04] MEDS: ALPRAZolam 0.25 MG TABLET PO ×2 (08:56→14:16)
[2022-05-04] MEDS: Cariprazine HCl 3 MG CAPSULE PO (08:57)
[2022-05-04] MEDS: lamoTRIgine 25 MG TABLET PO ×2 (08:57→21:34)
[2022-05-04] MEDS: Dextroamphetamine/Amphetamine XR 5 MG CAP.ER.24H 15 MG PO (08:57)
--- NOTE | 2022-05-04 10:32 | PC.NURSE ---
Dr. Hanna contacted via [employer] text regarding postive culture MRSA. Waiting return call back with any new orders.
[2022-05-04] MEDS: LORazepam 1 MG TABLET PO ×3 (11:12→21:40)
[2022-05-04] MEDS: Sulfamethox/Trimeth 800/160 TABLET 1 TAB PO ×2 (13:26→22:03)
[2022-05-04 18:00] VITALS: BP 120/76; PULSE 76; RESP 18; TEMP 35.8
[2022-05-04] MEDS: OLANZapine 7.5 MG TABLET 15 MG PO (21:34)
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
[2022-05-05 06:00] VITALS: BP 122/67; PULSE 74; RESP 18; TEMP 36.6; O2SAT 98
[2022-05-05] MEDS: lamoTRIgine 25 MG TABLET PO ×2 (09:15→20:43)
[2022-05-05] MEDS: Cariprazine HCl 3 MG CAPSULE PO (09:15)
[2022-05-05] MEDS: Benztropine Mesylate 1 MG TABLET PO ×2 (09:15→20:43)
[2022-05-05] MEDS: Dextroamphetamine/Amphetamine XR 5 MG CAP.ER.24H 15 MG PO (09:16)
[2022-05-05] MEDS: PARoxetine HCL 10 MG TABLET 5 MG PO (09:16)
[2022-05-05] MEDS: Sulfamethox/Trimeth 800/160 TABLET 1 TAB PO ×2 (11:23→21:24)
[2022-05-05] MEDS: LORazepam 1 MG TABLET PO ×3 (11:26→22:31)
--- NOTE | 2022-05-05 14:20 | PC.NURSE ---
dressing change done. slightly reddened area around wound. small amount of yellowish drainage noted.. decreased apiin the area.
--- NOTE | 2022-05-05 14:24 | PC.NURSE ---
dressing change done. slight reddness noted. small amount of yellowish drainage noted, decrease in pain.
[2022-05-05] MEDS: Acetaminophen 325 MG TABLET 650 MG PO (20:43)
[2022-05-05] MEDS: OLANZapine 10 MG TABLET PO (20:43)
[2022-05-05 21:15] VITALS: BP 122/67; PULSE 83; TEMP 37.3; O2SAT 97
[2022-05-05] MEDS: ALPRAZolam 0.25 MG TABLET PO (21:24)
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
[2022-05-06 06:00] VITALS: BP 119/66; PULSE 79; RESP 18; TEMP 37.2; O2SAT 98
[2022-05-06] MEDS: PARoxetine HCL 10 MG TABLET 5 MG PO (08:26)
[2022-05-06] MEDS: Cariprazine HCl 3 MG CAPSULE PO (08:26)
[2022-05-06] MEDS: Dextroamphetamine/Amphetamine XR 5 MG CAP.ER.24H 15 MG PO (08:26)
[2022-05-06] MEDS: lamoTRIgine 25 MG TABLET PO ×2 (08:26→20:12)
[2022-05-06] MEDS: ALPRAZolam 0.25 MG TABLET PO ×3 (08:26→20:12)
[2022-05-06] MEDS: Benztropine Mesylate 1 MG TABLET PO ×2 (08:26→20:12)
[2022-05-06] MEDS: Sulfamethox/Trimeth 800/160 TABLET 1 TAB PO ×2 (11:08→21:40)
[2022-05-06] MEDS: LORazepam 1 MG TABLET PO ×3 (11:33→21:44)
--- NOTE | 2022-05-06 14:40 | PC.NURSE ---
dressing change performed at 8:30am; no drainage or redness noted
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
[2022-05-06] MEDS: OLANZapine 10 MG TABLET PO (20:12)
[2022-05-06 20:15] VITALS: BP 142/81; PULSE 86; TEMP 36.7; O2SAT 97
[2022-05-07] MEDS: Cariprazine HCl 3 MG CAPSULE PO (08:42)
[2022-05-07] MEDS: ALPRAZolam 0.25 MG TABLET PO ×3 (08:42→20:53)
[2022-05-07] MEDS: Dextroamphetamine/Amphetamine XR 5 MG CAP.ER.24H 15 MG PO (08:43)
[2022-05-07] MEDS: lamoTRIgine 25 MG TABLET PO ×2 (08:43→20:54)
[2022-05-07] MEDS: PARoxetine HCL 10 MG TABLET 5 MG PO (08:43)
[2022-05-07] MEDS: Benztropine Mesylate 1 MG TABLET PO ×2 (08:43→20:53)
[2022-05-07] MEDS: Sulfamethox/Trimeth 800/160 TABLET 1 TAB PO ×2 (10:37→21:50)
[2022-05-07] MEDS: LORazepam 1 MG TABLET PO (12:23)
--- NOTE | 2022-05-07 15:45 | P.PNPSI_ITS ---
Subjective Subjective Date of Service: 05/07/22 Reason For Visit: Bipolar D/O w/psychosis; substance abuse-benzodiaz Subjective Notes: Conditional Voluntary Healthcare Proxy: No Guardianship: No Medical Problems Affecting Mental Status: No Interim History: Court date today regarding children/custody. Pt discussing her past, triggers, resulting emotions, anger. Discussed having made bad decisions in her past, mixing that with alcohol and escalating situations as a result. Attempting to leave the past, move forward. Joint call with pt and partner who attended court. He reports the case is continued to 07/03 (pt will need to attend). Pt asked partner if she could return home to live. Partner explained that it is a choice that is difficult. He has been told by D[employer] and police that if pt returns to the home, the children will go to foster care. He asked pt how she wanted to work with this dilemma-she chose to remain out of the home and have the children remain. Pt asked partner about couples therapy. He is willing, stating these issues have been present for 10 years and he is hoping for some resolution. Medication Compliance: Yes Side effects from medications: No Attending Groups: Yes Review of Systems Acute medical concerns: No Medical Review of Systems: unchanged Review of Systems Reports behavioral changes Psychiatric: Reports anxiety, Reports behavioral changes, Reports depression, Reports difficulty concentrating, Reports irritability, Reports anhedonia, Reports mood swings and Reports paranoia Mental Status Exam Mental Status Exam Patient Appearance: Appropriate Patient Orientation: Person, Place, Time and Situation Level of Consciousness: Alert Patient Behavior: Talkative, Cooperative, Anxious, Distractible and Good Eye Contact Mood Description: Blunted Affect Description: Blunted Patient Cognition Impaired: No Ability to Follow Directions: Good Speech Pattern: Spontaneous Speech Memory Description: Episodic Impaired Delusions: Present Perceptual Disturbances: Depersonalization and Derealization Thought Process: Distracted Thought Content: positive for Circumstantial, positive for Perseveration and positive for Tangential Depressive Symptoms: Increased Anxiety, Increased Irritability, Isolating- Friends/Family and Loss of Energy Abnormal Motor Activity Signs and Symptoms: Restlessness Judgement: Fair Diagnostics Vital Signs (24Hr): Vital Signs - 24 hr 05/06/22 20:15 Temperature 98.0 F Pulse Rate 86 Blood Pressure 142/81 H Pulse Oximetry 97 Oxygen Delivery Method Room Air Medications Medications Current Medications Acetaminophen (Acetaminophen 325 Mg Tablet) 650 mg PO Q6H PRN PRN Reason: Headache/Pain Mild Scale (1-3) Last Admin: 05/05/22 20:43 Dose: 650 mg Al Hydroxide/Mg Hydroxide (Magnesium Hydrox/Alum Hydrox 30 Ml Oral.Susp) 30 ml PO Q6H PRN PRN Reason: Heartburn/Nausea Alprazolam (Alprazolam 0.25 Mg Tablet) 0.25 mg PO TID [facility] Last Admin: 05/07/22 14:42 Dose: 0.25 mg Amphetamine/Dextroamphetamine (Dextroamphetamine/Amphetamine Xr 5 Mg Cap.Er.24h) 15 mg PO DAILY [facility] Last Admin: 05/07/22 08:43 Dose: 15 mg Benztropine Mesylate (Benztropine Mesylate 1 Mg Tablet) 1 mg PO BID [facility] Last Admin: 05/07/22 08:43 Dose: 1 mg Cariprazine (Cariprazine Hcl 3 Mg Capsule) 3 mg PO DAILY [facility] Last Admin: 05/07/22 08:42 Dose: 3 mg Hydroxyzine HCl (Hydroxyzine Hcl 25 Mg Tablet) 25 mg PO BEDTIME PRN PRN Reason: Anxiety Ibuprofen (Ibuprofen 800 Mg Tablet) 800 mg PO Q8H PRN PRN Reason: Pain, Mild (Pain Scale 1-3) Last Admin: 05/02/22 14:24 Dose: 800 mg Lamotrigine (Lamotrigine 25 Mg Tablet) 25 mg PO BID [facility] Last Admin: 05/07/22 08:43 Dose: 25 mg Lorazepam (Lorazepam 1 Mg Tablet) 1 mg PO Q4H PRN PRN Reason: agitation Last Admin: 05/07/22 12:23 Dose: 1 mg Magnesium Hydroxide (Milk Of Magnesia 30 Ml Oral.Susp) 30 ml PO DAILY PRN PRN Reason: Constipation Last Admin: 04/27/22 15:49 Dose: 30 ml Pt Own Medication ( (Act Lozenge 1 Tab)) 1 tab PO BID PRN PRN Reason: Dry Mouth Last Admin: 05/06/22 16:19 Dose: 1 tab Non-Formulary Medication (Patient Own Medication) 1 each PO BID PRN PRN Reason: Dry Mouth Olanzapine (Olanzapine 5 Mg Tablet) 5 mg PO Q4H PRN PRN Reason: lability, agitation Olanzapine (Olanzapine 10 Mg Tablet) 10 mg PO BEDTIME [facility] Last Admin: 05/06/22 20:12 Dose: 10 mg Saliva Substitute (Dry Mouth [place] 60 Ml [place]) 1 spray MUCOUS MEM Q2H PRN PRN Reason: Dry Mouth Last Admin: 05/01/22 11:07 Dose: 1 spray Trazodone HCl (Trazodone Hcl 50 Mg Tablet) 50 mg PO BEDTIME PRN PRN Reason: Insomnia Trimethoprim/Sulfamethoxazole (Sulfamethox/Trimeth 800/160 Tablet) 1 tab PO Q12H [facility] Stop: 05/11/22 10:59 Last Admin: 05/07/22 10:37 Dose: 1 tab Allergies Allergies Allergy/AdvReac Type Severity Reaction Status Date / Time cat dander [cats] Allergy Itchy Eyes Verified 04/25/22 00:28 dog dander [dogs] Allergy Itchy Eyes Verified 04/25/22 00:29 Assessment & Plan Assessment & Plan (1) Substance induced mood disorder: Status: Acute Code(s): F19.94 - Other psychoactive substance use, unspecified with psychoactive substance-induced mood disorder (2) Polysubstance abuse: Status: Acute Code(s): F19.10 - Other psychoactive substance abuse, uncomplicated (3) ADHD: Status: Acute Code(s): F90.9 - Attention-deficit hyperactivity disorder, unspecified type Plan 41 yo female, hx depression, ADHD, anxiety, obsessive qualities and questionable bipolar disorder. Hx of polysubstance abuse with detox in 2020 from Xanax, Adderall. Current OP regime is Xanax, Adderall, Paxil. Psychotic and labile on presentation, question of anand vs substance induced mood sx. Pt at this time, declines referrals and treatment. My treatment is [facility]. Plan: Observe Collateral contacts Continue Haldol prn Initiate Olanzapine Decrease Xanax-taper attempt Decrease Adderall-taper attempt MRI Head secondary to falls-pt refuses Labs-pt refuses Assessment and plan for 05/05/2022 Patient seen case reviewed with nursing staff. Patient seems preoccupied with the fact that she was somehow misunderstood railroaded and gas let it by her partner and her identity perhaps have been stolen. Somewhat expansive not overly depressed insight somewhat limited Patient has been started on Vryalar 05/06/22 Continue current regime. Collateral [id number] and district court on 05/07. 05/07/22 Continue current regime. I spent minutes with the patient and/or on the patient floor today, greater than?50% of which was spent counseling/coordinating care. Patient educated on: therapeutic strategies Informed Consent: further education needed Reason for contiued inpatient stay Substantial Risk for: inability to function and rapid decompensation
[2022-05-07 17:03] VITALS: BP 132/61; PULSE 75; RESP 16; TEMP 36.6; O2SAT 96
[2022-05-07] MEDS: Acetaminophen 325 MG TABLET 650 MG PO (17:32)
[2022-05-07] MEDS: OLANZapine 10 MG TABLET PO (20:54)
[2022-05-08 06:00] VITALS: BP 133/63; PULSE 63; TEMP 36.9; O2SAT 99
[2022-05-08] MEDS: lamoTRIgine 25 MG TABLET PO ×2 (08:35→21:10)
[2022-05-08] MEDS: Dextroamphetamine/Amphetamine XR 5 MG CAP.ER.24H 15 MG PO (08:35)
[2022-05-08] MEDS: ALPRAZolam 0.25 MG TABLET PO (08:35)
[2022-05-08] MEDS: Benztropine Mesylate 1 MG TABLET PO ×2 (08:36→21:11)
[2022-05-08] MEDS: Cariprazine HCl 3 MG CAPSULE PO (08:36)
[2022-05-08] MEDS: LORazepam 1 MG TABLET PO ×3 (11:02→22:40)
[2022-05-08] MEDS: Sulfamethox/Trimeth 800/160 TABLET 1 TAB PO ×2 (11:02→22:40)
[2022-05-08] MEDS: OLANZapine 5 MG TABLET PO (13:26)
--- NOTE | 2022-05-08 16:02 | HO.PSYCHPN ---
Subjective Subjective Date of Service: 05/08/22 Reason For Visit: Bipolar D/O w/psychosis; substance abuse-benzodiaz Subjective Notes: Conditional Voluntary Healthcare Proxy: No Guardianship: No Medical Problems Affecting Mental Status: No Interim History: Difficult day after 05/07 when she learned that she would not be allowed home until court issues were settled. Irritable, some throwing of objects, expression of anger, but overall in good control with some paranoia evidenced. Able to identify concerns, needs and discuss plans of care for herself and goals. Medication Compliance: Yes Side effects from medications: No Attending Groups: Intermittent Review of Systems Acute medical concerns: No Medical Review of Systems: unchanged Review of Systems Reports behavioral changes Psychiatric: Reports anxiety, Reports behavioral changes, Reports depression, Reports difficulty concentrating, Reports irritability, Reports anhedonia, Reports mood swings and Reports paranoia Mental Status Exam Mental Status Exam Patient Appearance: Appropriate Patient Orientation: Person, Place, Time and Situation Level of Consciousness: Alert Patient Behavior: Talkative, Cooperative, Anxious, Distractible and Good Eye Contact Mood Description: Labile Affect Description: Labile Patient Cognition Impaired: No Ability to Follow Directions: Good Speech Pattern: Spontaneous Speech Memory Description: Episodic Impaired Delusions: Present Perceptual Disturbances: Depersonalization and Derealization Thought Process: Distracted Thought Content: positive for Circumstantial, positive for Perseveration and positive for Tangential Depressive Symptoms: Increased Anxiety, Increased Irritability, Isolating-Friends/Family and Loss of Energy Abnormal Motor Activity Signs and Symptoms: Restlessness Judgement: Fair Diagnostics Vital Signs (24Hr): Vital Signs - 24 hr 05/07/22 17:03 05/08/22 06:00 Temperature 97.8 F 98.4 F Pulse Rate 75 63 Respiratory Rate 16 Blood Pressure 132/61 133/63 Pulse Oximetry 96 99 Oxygen Delivery Method Room Air Medications Medications Current Medications Acetaminophen (Acetaminophen 325 Mg Tablet) 650 mg PO Q6H PRN PRN Reason: Headache/Pain Mild Scale (1-3) Last Admin: 05/07/22 17:32 Dose: 650 mg Al Hydroxide/Mg Hydroxide (Magnesium Hydrox/Alum Hydrox 30 Ml Oral.Susp) 30 ml PO Q6H PRN PRN Reason: Heartburn/Nausea Alprazolam (Alprazolam 0.5 Mg Tablet) 0.5 mg PO TID [facility] Amphetamine/Dextroamphetamine (Dextroamphetamine/Amphetamine Xr 5 Mg Cap.Er.24h) 15 mg PO DAILY [facility] Last Admin: 05/08/22 08:35 Dose: 15 mg Benztropine Mesylate (Benztropine Mesylate 1 Mg Tablet) 1 mg PO BID [facility] Last Admin: 05/08/22 08:36 Dose: 1 mg Cariprazine (Cariprazine Hcl 3 Mg Capsule) 3 mg PO DAILY [facility] Last Admin: 05/08/22 08:36 Dose: 3 mg Hydroxyzine HCl (Hydroxyzine Hcl 25 Mg Tablet) 25 mg PO BEDTIME PRN PRN Reason: Anxiety Ibuprofen (Ibuprofen 800 Mg Tablet) 800 mg PO Q8H PRN PRN Reason: Pain, Mild (Pain Scale 1-3) Last Admin: 05/02/22 14:24 Dose: 800 mg Lamotrigine (Lamotrigine 25 Mg Tablet) 25 mg PO BID [facility] Last Admin: 05/08/22 08:35 Dose: 25 mg Lorazepam (Lorazepam 1 Mg Tablet) 1 mg PO Q4H PRN PRN Reason: agitation Last Admin: 05/08/22 11:02 Dose: 1 mg Magnesium Hydroxide (Milk Of Magnesia 30 Ml Oral.Susp) 30 ml PO DAILY PRN PRN Reason: Constipation Last Admin: 04/27/22 15:49 Dose: 30 ml Pt Own Medication ( (Act Lozenge 1 Tab)) 1 tab PO BID PRN PRN Reason: Dry Mouth Last Admin: 05/08/22 08:39 Dose: 1 tab Non-Formulary Medication (Patient Own Medication) 1 each PO BID PRN PRN Reason: Dry Mouth Olanzapine (Olanzapine 5 Mg Tablet) 5 mg PO Q4H PRN PRN Reason: lability, agitation Last Admin: 05/08/22 13:26 Dose: 5 mg Olanzapine (Olanzapine 10 Mg Tablet) 10 mg PO BEDTIME [facility] Last Admin: 05/07/22 20:54 Dose: 10 mg Saliva Substitute (Dry Mouth [place] 60 Ml [place]) 1 spray MUCOUS MEM Q2H PRN PRN Reason: Dry Mouth Last Admin: 05/01/22 11:07 Dose: 1 spray Trazodone HCl (Trazodone Hcl 50 Mg Tablet) 50 mg PO BEDTIME PRN PRN Reason: Insomnia Trimethoprim/Sulfamethoxazole (Sulfamethox/Trimeth 800/160 Tablet) 1 tab PO Q12H [facility] Stop: 05/11/22 10:59 Last Admin: 05/08/22 11:02 Dose: 1 tab Allergies Allergies Allergy/AdvReac Type Severity Reaction Status Date / Time cat dander [cats] Allergy Itchy Eyes Verified 04/25/22 00:28 dog dander [dogs] Allergy Itchy Eyes Verified 04/25/22 00:29 Assessment & Plan Assessment & Plan (1) Substance induced mood disorder: Status: Acute Code(s): F19.94 - Other psychoactive substance use, unspecified with psychoactive substance-induced mood disorder (2) Polysubstance abuse: Status: Acute Code(s): F19.10 - Other psychoactive substance abuse, uncomplicated (3) ADHD: Status: Acute Code(s): F90.9 - Attention-deficit hyperactivity disorder, unspecified type Plan 41 yo female, hx depression, ADHD, anxiety, obsessive qualities and questionable bipolar disorder. Hx of polysubstance abuse with detox in 2020 from Xanax, Adderall. Current OP regime is Xanax, Adderall, Paxil. Psychotic and labile on presentation, question of anand vs substance induced mood sx. Pt at this time, declines referrals and treatment. My treatment is [facility]. Plan: Observe Collateral contacts Continue Haldol prn Initiate Olanzapine Decrease Xanax-taper attempt Decrease Adderall-taper attempt MRI Head secondary to falls-pt refuses Labs-pt refuses Assessment and plan for 05/05/2022 Patient seen case reviewed with nursing staff. Patient seems preoccupied with the fact that she was somehow misunderstood railroaded and gas let it by her partner and her identity perhaps have been stolen. Somewhat expansive not overly depressed insight somewhat limited Patient has been started on Vryalar 05/06/22 Continue current regime. Collateral [id number] and district court on 05/07. 05/08/22 Continue current plan Support her treatment planning and sound decision making. I spent minutes with the patient and/or on the patient floor today, greater than?50% of which was spent counseling/coordinating care. Patient educated on: therapeutic strategies Informed Consent: understands and further education needed Reason for contiued inpatient stay Substantial Risk for: harm to self, harm to others, inability to function and rapid decompensation
[2022-05-08] MEDS: ALPRAZolam 0.5 MG TABLET PO ×2 (16:09→21:10)
[2022-05-08 18:00] VITALS: BP 120/80; PULSE 78; RESP 18; TEMP 36.3; O2SAT 97
[2022-05-08] MEDS: OLANZapine 10 MG TABLET PO (21:10)
[2022-05-08] MEDS: Mineral Oil/Petrolatum,White 106 GM Tube 1 APPL TOPICAL (22:40)
[2022-05-09 06:45] VITALS: BP 96/52; PULSE 65; RESP 16; TEMP 36.4; O2SAT 98
[2022-05-09] MEDS: ALPRAZolam 0.5 MG TABLET PO ×3 (08:40→21:00)
[2022-05-09] MEDS: Benztropine Mesylate 1 MG TABLET PO ×2 (08:40→21:00)
[2022-05-09] MEDS: Dextroamphetamine/Amphetamine XR 5 MG CAP.ER.24H 15 MG PO (08:40)
[2022-05-09] MEDS: Cariprazine HCl 3 MG CAPSULE PO (08:40)
[2022-05-09] MEDS: lamoTRIgine 25 MG TABLET PO ×2 (08:40→21:00)
[2022-05-09] MEDS: LORazepam 1 MG TABLET PO ×3 (11:10→22:41)
[2022-05-09] MEDS: Sulfamethox/Trimeth 800/160 TABLET 1 TAB PO ×2 (12:32→22:41)
[2022-05-09] MEDS: Mineral Oil/Petrolatum,White 106 GM Tube 1 APPL TOPICAL (15:03)
[2022-05-09 18:00] VITALS: BP 107/64; PULSE 68; RESP 14; TEMP 36.2
--- NOTE | 2022-05-09 18:35 | P.PNPSI_ITS ---
Subjective Subjective Date of Service: 05/09/22 Reason For Visit: Bipolar D/O w/psychosis; substance abuse-benzodiaz Subjective Notes: Conditional Voluntary Healthcare Proxy: No Guardianship: No Medical Problems Affecting Mental Status: No Interim History: Reports she is feeling better, VANDANA ~5am. Sleep quality is good Mildly tangential but overall focused, clear, expressing concerns and i dentifying what she needs to get done. Discussed Vraylar increase to 4.5 mg which she agrees with. Medication Compliance: Yes Side effects from medications: No Attending Groups: Yes Review of Systems Acute medical concerns: No Medical Review of Systems: unchanged Review of Systems Psychiatric: Reports mood swings Mental Status Exam Mental Status Exam Patient Appearance: Appropriate Patient Orientation: Person, Place, Time and Situation Level of Consciousness: Alert Patient Behavior: Talkative, Cooperative, Anxious, Distractible and Good Eye Contact Mood Description: Labile Affect Description: Labile Patient Cognition Impaired: No Ability to Follow Directions: Good Speech Pattern: Spontaneous Speech Memory Description: Episodic Impaired Delusions: Present Perceptual Disturbances: Depersonalization and Derealization Thought Process: Distracted Thought Content: positive for Circumstantial, positive for Perseveration and positive for Tangential Depressive Symptoms: Increased Anxiety, Increased Irritability, Isolating- Friends/Family and Loss of Energy Abnormal Motor Activity Signs and Symptoms: Restlessness Judgement: Fair Diagnostics Vital Signs (24Hr): Vital Signs - 24 hr 05/09/22 06:45 Temperature 97.6 F Pulse Rate 65 Respiratory Rate 16 Blood Pressure 96/52 L Pulse Oximetry 98 Oxygen Delivery Method Room Air Medications Medications Current Medications Acetaminophen (Acetaminophen 325 Mg Tablet) 650 mg PO Q6H PRN PRN Reason: Headache/Pain Mild Scale (1-3) Last Admin: 05/07/22 17:32 Dose: 650 mg Al Hydroxide/Mg Hydroxide (Magnesium Hydrox/Alum Hydrox 30 Ml Oral.Susp) 30 ml PO Q6H PRN PRN Reason: Heartburn/Nausea Alprazolam (Alprazolam 0.5 Mg Tablet) 0.5 mg PO TID [facility] Last Admin: 05/09/22 14:31 Dose: 0.5 mg Amphetamine/Dextroamphetamine (Dextroamphetamine/Amphetamine Xr 5 Mg Cap.Er.24h) 15 mg PO DAILY [facility] Last Admin: 05/09/22 08:40 Dose: 15 mg Benztropine Mesylate (Benztropine Mesylate 1 Mg Tablet) 1 mg PO BID [facility] Last Admin: 05/09/22 08:40 Dose: 1 mg Cariprazine (Cariprazine Hcl 3 Mg Capsule) 3 mg PO DAILY [facility] Last Admin: 05/09/22 08:40 Dose: 3 mg Hydroxyzine HCl (Hydroxyzine Hcl 25 Mg Tablet) 25 mg PO BEDTIME PRN PRN Reason: Anxiety Ibuprofen (Ibuprofen 800 Mg Tablet) 800 mg PO Q8H PRN PRN Reason: Pain, Mild (Pain Scale 1-3) Last Admin: 05/02/22 14:24 Dose: 800 mg Lamotrigine (Lamotrigine 25 Mg Tablet) 25 mg PO BID [facility] Last Admin: 05/09/22 08:40 Dose: 25 mg Lorazepam (Lorazepam 1 Mg Tablet) 1 mg PO Q4H PRN PRN Reason: agitation Last Admin: 05/09/22 15:55 Dose: 1 mg Magnesium Hydroxide (Milk Of Magnesia 30 Ml Oral.Susp) 30 ml PO DAILY PRN PRN Reason: Constipation Last Admin: 04/27/22 15:49 Dose: 30 ml Multi-Ingred Cream/Lotion/Oil/Oint (Mineral Oil/Petrolatum,White 106 Gm Tube) 1 appl TOPICAL TID [facility]; Protocol Last Admin: 05/09/22 15:03 Dose: 1 appl Pt Own Medication ( (Act Lozenge 1 Tab)) 1 tab PO BID PRN PRN Reason: Dry Mouth Last Admin: 05/08/22 08:39 Dose: 1 tab Non-Formulary Medication (Patient Own Medication) 1 each PO BID PRN PRN Reason: Dry Mouth Last Admin: 05/09/22 11:07 Dose: 1 each Olanzapine (Olanzapine 5 Mg Tablet) 5 mg PO Q4H PRN PRN Reason: lability, agitation Last Admin: 05/08/22 13:26 Dose: 5 mg Olanzapine (Olanzapine 10 Mg Tablet) 10 mg PO BEDTIME [facility] Last Admin: 05/08/22 21:10 Dose: 10 mg Saliva Substitute (Dry Mouth [place] 60 Ml [place]) 1 spray MUCOUS MEM Q2H PRN PRN Reason: Dry Mouth Last Admin: 05/01/22 11:07 Dose: 1 spray Trazodone HCl (Trazodone Hcl 50 Mg Tablet) 50 mg PO BEDTIME PRN PRN Reason: Insomnia Trimethoprim/Sulfamethoxazole (Sulfamethox/Trimeth 800/160 Tablet) 1 tab PO Q12H [facility] Stop: 05/11/22 10:59 Last Admin: 05/09/22 12:32 Dose: 1 tab Allergies Allergies Allergy/AdvReac Type Severity Reaction Status Date / Time cat dander [cats] Allergy Itchy Eyes Verified 04/25/22 00:28 dog dander [dogs] Allergy Itchy Eyes Verified 04/25/22 00:29 Assessment & Plan Assessment & Plan (1) Substance induced mood disorder: Status: Acute Code(s): F19.94 - Other psychoactive substance use, unspecified with psychoactive substance-induced mood disorder (2) Polysubstance abuse: Status: Acute Code(s): F19.10 - Other psychoactive substance abuse, uncomplicated (3) ADHD: Status: Acute Code(s): F90.9 - Attention-deficit hyperactivity disorder, unspecified type Plan 41 yo female, hx depression, ADHD, anxiety, obsessive qualities and questionable bipolar disorder. Hx of polysubstance abuse with detox in 2020 from Xanax, Adderall. Current OP regime is Xanax, Adderall, Paxil. Psychotic and labile on presentation, question of anand vs substance induced mood sx. Pt at this time, declines referrals and treatment. My treatment is [facility]. Plan: Observe Collateral contacts Continue Haldol prn Initiate Olanzapine Decrease Xanax-taper attempt Decrease Adderall-taper attempt MRI Head secondary to falls-pt refuses Labs-pt refuses Assessment and plan for 05/05/2022 Patient seen case reviewed with nursing staff. Patient seems preoccupied with the fact that she was somehow misunderstood railroaded and gas let it by her partner and her identity perhaps have been stolen. Somewhat expansive not overly depressed insight somewhat limited Patient has been started on Vryalar 05/06/22 Continue current regime. Collateral [id number] and district court on 05/07. 05/08/22 Continue current plan Support her treatment planning and sound decision making. 05/09/22 Increase Vraylar to 4.5 mg daily I spent minutes with the patient and/or on the patient floor today, greater than?50% of which was spent counseling/coordinating care. Patient educated on: medication risk/benefits and therapeutic strategies Informed Consent: understands Reason for contiued inpatient stay Substantial Risk for: harm to self, harm to others, inability to function and rapid decompensation
[2022-05-09] MEDS: traZODone HCL 50 MG TABLET PO (19:42)
[2022-05-09] MEDS: OLANZapine 10 MG TABLET PO (21:00)
[2022-05-10 06:00] VITALS: BP 107/59; PULSE 60; RESP 16; TEMP 36.7; O2SAT 96
[2022-05-10] MEDS: ALPRAZolam 0.5 MG TABLET PO ×3 (09:22→21:19)
[2022-05-10] MEDS: Benztropine Mesylate 1 MG TABLET PO ×2 (09:22→21:19)
[2022-05-10] MEDS: Dextroamphetamine/Amphetamine XR 5 MG CAP.ER.24H 15 MG PO (09:22)
[2022-05-10] MEDS: lamoTRIgine 25 MG TABLET PO ×2 (09:22→21:19)
[2022-05-10] MEDS: Cariprazine HCl 1.5 MG CAPSULE 4.5 MG PO (09:23)
[2022-05-10] MEDS: Sulfamethox/Trimeth 800/160 TABLET 1 TAB PO ×2 (12:07→22:18)
[2022-05-10] MEDS: LORazepam 1 MG TABLET PO ×2 (12:07→17:16)
[2022-05-10] MEDS: Mineral Oil/Petrolatum,White 106 GM Tube 1 APPL TOPICAL ×2 (14:55→21:19)
--- NOTE | 2022-05-10 15:18 | P.PNPSI_ITS ---
Subjective Subjective Date of Service: 05/10/22 Reason For Visit: Bipolar D/O w/psychosis; substance abuse-benzodiaz Subjective Notes: Conditional Voluntary Healthcare Proxy: No Guardianship: No Medical Problems Affecting Mental Status: No Interim History: Tolerating Vraylar increase. Working on GED study guide, wanting to complete GED and train in interior design, [employer], real estate, where her talents and intersts are. Appears calmer, brighter today with less disorganization improved focus. Medication Compliance: Yes Side effects from medications: No Attending Groups: Yes Review of Systems Acute medical concerns: No Medical Review of Systems: unchanged Review of Systems Reports behavioral changes Psychiatric: Reports anxiety, Reports behavioral changes, Reports depression, Reports difficulty concentrating, Reports irritability, Reports mood swings and Reports paranoia Mental Status Exam Mental Status Exam Patient Appearance: Appropriate Patient Orientation: Person, Place, Time and Situation Level of Consciousness: Alert Patient Behavior: Talkative, Cooperative, Anxious, Distractible and Good Eye Contact Mood Description: Labile Affect Description: Labile Patient Cognition Impaired: No Ability to Follow Directions: Good Speech Pattern: Spontaneous Speech Memory Description: Episodic Impaired Delusions: Present Perceptual Disturbances: Depersonalization and Derealization Thought Process: Distracted Thought Content: positive for Circumstantial, positive for Perseveration and positive for Tangential Depressive Symptoms: Increased Anxiety, Increased Irritability, Isolating- Friends/Family and Loss of Energy Abnormal Motor Activity Signs and Symptoms: Restlessness Judgement: Fair Diagnostics Vital Signs (24Hr): Vital Signs - 24 hr 05/09/22 18:00 05/10/22 06:00 Temperature 97.1 F 98.1 F Pulse Rate 68 60 Respiratory Rate 14 16 Blood Pressure 107/64 107/59 L Pulse Oximetry 96 Medications Medications Current Medications Acetaminophen (Acetaminophen 325 Mg Tablet) 650 mg PO Q6H PRN PRN Reason: Headache/Pain Mild Scale (1-3) Last Admin: 05/07/22 17:32 Dose: 650 mg Al Hydroxide/Mg Hydroxide (Magnesium Hydrox/Alum Hydrox 30 Ml Oral.Susp) 30 ml PO Q6H PRN PRN Reason: Heartburn/Nausea Alprazolam (Alprazolam 0.5 Mg Tablet) 0.5 mg PO TID [facility] Last Admin: 05/10/22 14:55 Dose: 0.5 mg Amphetamine/Dextroamphetamine (Dextroamphetamine/Amphetamine Xr 5 Mg Cap.Er.24h) 15 mg PO DAILY [facility] Last Admin: 05/10/22 09:22 Dose: 15 mg Benztropine Mesylate (Benztropine Mesylate 1 Mg Tablet) 1 mg PO BID [facility] Last Admin: 05/10/22 09:22 Dose: 1 mg Cariprazine (Cariprazine Hcl 1.5 Mg Capsule) 4.5 mg PO DAILY [facility] Last Admin: 05/10/22 09:23 Dose: 4.5 mg Hydroxyzine HCl (Hydroxyzine Hcl 25 Mg Tablet) 25 mg PO BEDTIME PRN PRN Reason: Anxiety Ibuprofen (Ibuprofen 800 Mg Tablet) 800 mg PO Q8H PRN PRN Reason: Pain, Mild (Pain Scale 1-3) Last Admin: 05/02/22 14:24 Dose: 800 mg Lamotrigine (Lamotrigine 25 Mg Tablet) 25 mg PO BID [facility] Last Admin: 05/10/22 09:22 Dose: 25 mg Lorazepam (Lorazepam 1 Mg Tablet) 1 mg PO Q4H PRN PRN Reason: agitation Last Admin: 05/10/22 12:07 Dose: 1 mg Magnesium Hydroxide (Milk Of Magnesia 30 Ml Oral.Susp) 30 ml PO DAILY PRN PRN Reason: Constipation Last Admin: 04/27/22 15:49 Dose: 30 ml Multi-Ingred Cream/Lotion/Oil/Oint (Mineral Oil/Petrolatum,White 106 Gm Tube) 1 appl TOPICAL TID [facility]; Protocol Last Admin: 05/10/22 14:55 Dose: 1 appl Pt Own Medication ( (Act Lozenge 1 Tab)) 1 tab PO BID PRN PRN Reason: Dry Mouth Last Admin: 05/08/22 08:39 Dose: 1 tab Non-Formulary Medication (Patient Own Medication) 1 each PO BID PRN PRN Reason: Dry Mouth Last Admin: 05/09/22 11:07 Dose: 1 each Olanzapine (Olanzapine 5 Mg Tablet) 5 mg PO Q4H PRN PRN Reason: lability, agitation Last Admin: 05/08/22 13:26 Dose: 5 mg Olanzapine (Olanzapine 10 Mg Tablet) 10 mg PO BEDTIME [facility] Last Admin: 05/09/22 21:00 Dose: 10 mg Saliva Substitute (Dry Mouth [place] 60 Ml [place]) 1 spray MUCOUS MEM Q2H PRN PRN Reason: Dry Mouth Last Admin: 05/01/22 11:07 Dose: 1 spray Trazodone HCl (Trazodone Hcl 50 Mg Tablet) 50 mg PO BEDTIME PRN PRN Reason: Insomnia Last Admin: 05/09/22 19:42 Dose: 50 mg Trimethoprim/Sulfamethoxazole (Sulfamethox/Trimeth 800/160 Tablet) 1 tab PO Q12H [facility] Stop: 05/11/22 10:59 Last Admin: 05/10/22 12:07 Dose: 1 tab Allergies Allergies Allergy/AdvReac Type Severity Reaction Status Date / Time cat dander [cats] Allergy Itchy Eyes Verified 04/25/22 00:28 dog dander [dogs] Allergy Itchy Eyes Verified 04/25/22 00:29 Assessment & Plan Assessment & Plan (1) Substance induced mood disorder: Status: Acute Code(s): F19.94 - Other psychoactive substance use, unspecified with psychoactive substance-induced mood disorder (2) Polysubstance abuse: Status: Acute Code(s): F19.10 - Other psychoactive substance abuse, uncomplicated (3) ADHD: Status: Acute Code(s): F90.9 - Attention-deficit hyperactivity disorder, unspecified type Plan 41 yo female, hx depression, ADHD, anxiety, obsessive qualities and questionable bipolar disorder. Hx of polysubstance abuse with detox in 2020 from Xanax, Adderall. Current OP regime is Xanax, Adderall, Paxil. Psychotic and labile on presentation, question of anand vs substance induced mood sx. Pt at this time, declines referrals and treatment. My treatment is [facility]en [facility] and [facility]. Plan: Observe Collateral contacts Continue Haldol prn Initiate Olanzapine Decrease Xanax-taper attempt Decrease Adderall-taper attempt MRI Head secondary to falls-pt refuses Labs-pt refuses Assessment and plan for 05/05/2022 Patient seen case reviewed with nursing staff. Patient seems preoccupied with the fact that she was somehow misunderstood railroaded and gas let it by her partner and her identity perhaps have been stolen. Somewhat expansive not overly depressed insight somewhat limited Patient has been started on Vryalar 05/06/22 Continue current regime. Collateral [id number] and district court on 05/07. 05/08/22 Continue current plan Support her treatment planning and sound decision making. 05/09/22 Increase Vraylar to 4.5 mg daily 05/10/22 Continue current plan I spent minutes with the patient and/or on the patient floor today, greater than?50% of which was spent counseling/coordinating care. Patient educated on: therapeutic strategies Informed Consent: further education needed Reason for contiued inpatient stay Substantial Risk for: harm to self, inability to function and rapid decompensation
[2022-05-10 18:35] VITALS: BP 121/70; PULSE 77; RESP 16; TEMP 36.6; O2SAT 98
[2022-05-10] MEDS: OLANZapine 10 MG TABLET PO (21:19)
[2022-05-11 06:00] VITALS: BP 107/74; PULSE 63; TEMP 36.2; O2SAT 100
[2022-05-11] MEDS: Cariprazine HCl 1.5 MG CAPSULE 4.5 MG PO (09:45)
[2022-05-11] MEDS: ALPRAZolam 0.5 MG TABLET PO ×3 (09:46→21:25)
[2022-05-11] MEDS: lamoTRIgine 25 MG TABLET PO ×2 (09:46→21:25)
[2022-05-11] MEDS: Dextroamphetamine/Amphetamine XR 5 MG CAP.ER.24H 15 MG PO (09:46)
[2022-05-11] MEDS: Benztropine Mesylate 1 MG TABLET PO ×2 (09:47→21:25)
[2022-05-11] MEDS: LORazepam 1 MG TABLET PO ×2 (13:13→19:00)
--- NOTE | 2022-05-11 14:38 | HO.PSYCHPN ---
Subjective Subjective Date of Service: 05/11/22 Reason For Visit: Bipolar D/O w/psychosis; substance abuse-benzodiaz Interim History: Met with patient. Discussed with staff. Overall appears to be improving with less psychotic symptoms. Today reports that she is doing well. Is tangential and slightly pressured at times however. Reports her main goal is to trying get couples work with her children's father age 6 and 8. Unsure what her discharge plan will be as she has no clear place to stay. Otherwise reports her mood is good and feels positive regarding current medication regimen. No side effects. Sleep energy and appetite okay. Medication Compliance: Yes Side effects from medications: No Attending Groups: Yes Review of Systems Acute medical concerns: No Review of Systems Review of Systems Unremarkable Mental Status Exam Mental Status Exam Narrative: Pleasant. Engaged. Fair self-care. Slightly pressured speech and over inclusive at times. Largely euthymic. No SI. No HI. No agitation or psychosis. Insight judgment okay Diagnostics Vital Signs (24Hr): Vital Signs - 24 hr 05/10/22 18:35 05/11/22 06:00 Temperature 97.8 F 97.1 F Pulse Rate 77 63 Respiratory Rate 16 Blood Pressure 121/70 107/74 Pulse Oximetry 98 100 Oxygen Delivery Method Room Air Room Air Medications Medications Current Medications Acetaminophen (Acetaminophen 325 Mg Tablet) 650 mg PO Q6H PRN PRN Reason: Headache/Pain Mild Scale (1-3) Last Admin: 05/07/22 17:32 Dose: 650 mg Al Hydroxide/Mg Hydroxide (Magnesium Hydrox/Alum Hydrox 30 Ml Oral.Susp) 30 ml PO Q6H PRN PRN Reason: Heartburn/Nausea Alprazolam (Alprazolam 0.5 Mg Tablet) 0.5 mg PO TID [facility] Last Admin: 05/11/22 09:46 Dose: 0.5 mg Amphetamine/Dextroamphetamine (Dextroamphetamine/Amphetamine Xr 5 Mg Cap.Er.24h) 15 mg PO DAILY [facility] Last Admin: 05/11/22 09:46 Dose: 15 mg Benztropine Mesylate (Benztropine Mesylate 1 Mg Tablet) 1 mg PO BID [facility] Last Admin: 05/11/22 09:47 Dose: 1 mg Cariprazine (Cariprazine Hcl 1.5 Mg Capsule) 4.5 mg PO DAILY [facility] Last Admin: 05/11/22 09:45 Dose: 4.5 mg Hydroxyzine HCl (Hydroxyzine Hcl 25 Mg Tablet) 25 mg PO BEDTIME PRN PRN Reason: Anxiety Ibuprofen (Ibuprofen 800 Mg Tablet) 800 mg PO Q8H PRN PRN Reason: Pain, Mild (Pain Scale 1-3) Last Admin: 05/02/22 14:24 Dose: 800 mg Lamotrigine (Lamotrigine 25 Mg Tablet) 25 mg PO BID [facility] Last Admin: 05/11/22 09:46 Dose: 25 mg Lorazepam (Lorazepam 1 Mg Tablet) 1 mg PO Q4H PRN PRN Reason: agitation Last Admin: 05/11/22 13:13 Dose: 1 mg Magnesium Hydroxide (Milk Of Magnesia 30 Ml Oral.Susp) 30 ml PO DAILY PRN PRN Reason: Constipation Last Admin: 04/27/22 15:49 Dose: 30 ml Multi-Ingred Cream/Lotion/Oil/Oint (Mineral Oil/Petrolatum,White 106 Gm Tube) 1 appl TOPICAL TID [facility]; Protocol Last Admin: 05/11/22 10:48 Dose: Not Given Pt Own Medication ( (Act Lozenge 1 Tab)) 1 tab PO BID PRN PRN Reason: Dry Mouth Last Admin: 05/10/22 17:18 Dose: 1 tab Non-Formulary Medication (Patient Own Medication) 1 each PO BID PRN PRN Reason: Dry Mouth Last Admin: 05/09/22 11:07 Dose: 1 each Olanzapine (Olanzapine 5 Mg Tablet) 5 mg PO Q4H PRN PRN Reason: lability, agitation Last Admin: 05/08/22 13:26 Dose: 5 mg Olanzapine (Olanzapine 10 Mg Tablet) 10 mg PO BEDTIME [facility] Last Admin: 05/10/22 21:19 Dose: 10 mg Saliva Substitute (Dry Mouth [place] 60 Ml [place]) 1 spray MUCOUS MEM Q2H PRN PRN Reason: Dry Mouth Last Admin: 05/01/22 11:07 Dose: 1 spray Trazodone HCl (Trazodone Hcl 50 Mg Tablet) 50 mg PO BEDTIME PRN PRN Reason: Insomnia Last Admin: 05/09/22 19:42 Dose: 50 mg Allergies Allergies Allergy/AdvReac Type Severity Reaction Status Date / Time cat dander [cats] Allergy Itchy Eyes Verified 04/25/22 00:28 dog dander [dogs] Allergy Itchy Eyes Verified 04/25/22 00:29 Assessment & Plan Assessment & Plan (1) Substance induced mood disorder: Status: Acute Code(s): F19.94 - Other psychoactive substance use, unspecified with psychoactive substance-induced mood disorder (2) Polysubstance abuse: Status: Acute Code(s): F19.10 - Other psychoactive substance abuse, uncomplicated (3) ADHD: Status: Acute Code(s): F90.9 - Attention-deficit hyperactivity disorder, unspecified type Plan 41 yo female, hx depression, ADHD, anxiety, obsessive qualities and questionable bipolar disorder. Hx of polysubstance abuse with detox in 2020 from Xanax, Adderall. Current OP regime is Xanax, Adderall, Paxil. Psychotic and labile on presentation, question of anand vs substance induced mood sx. Pt at this time, declines referrals and treatment. My treatment is Ruben, [facility] and [facility]. Plan: Observe Collateral contacts Continue Haldol prn Initiate Olanzapine Decrease Xanax-taper attempt Decrease Adderall-taper attempt MRI Head secondary to falls-pt refuses Labs-pt refuses Assessment and plan for 05/05/2022 Patient seen case reviewed with nursing staff. Patient seems preoccupied with the fact that she was somehow misunderstood railroaded and gas let it by her partner and her identity perhaps have been stolen. Somewhat expansive not overly depressed insight somewhat limited Patient has been started on Vryalar 05/06/22 Continue current regime. Collateral [id number] and district court on 05/07. 05/08/22 Continue current plan Support her treatment planning and sound decision making. 05/09/22 Increase Vraylar to 4.5 mg daily 05/10/22 Continue current plan 05/11/22: No changes to current plan I spent minutes with the patient and/or on the patient floor today, greater than?50% of which was spent counseling/coordinating care. Reason for contiued inpatient stay Substantial Risk for: rapid decompensation
[2022-05-11 21:15] VITALS: BP 118/74; PULSE 74; TEMP 36.4; O2SAT 100
[2022-05-11] MEDS: Mineral Oil/Petrolatum,White 106 GM Tube 1 APPL TOPICAL (21:25)
[2022-05-11] MEDS: OLANZapine 10 MG TABLET PO (21:25)
[2022-05-12 06:45] VITALS: BP 104/61; PULSE 61; RESP 16; TEMP 36.1; O2SAT 100
[2022-05-12] MEDS: lamoTRIgine 25 MG TABLET PO ×2 (08:43→21:31)
[2022-05-12] MEDS: Dextroamphetamine/Amphetamine XR 5 MG CAP.ER.24H 15 MG PO (08:43)
[2022-05-12] MEDS: ALPRAZolam 0.5 MG TABLET PO ×3 (08:43→21:31)
[2022-05-12] MEDS: Benztropine Mesylate 1 MG TABLET PO ×2 (08:43→21:31)
[2022-05-12] MEDS: Cariprazine HCl 1.5 MG CAPSULE 4.5 MG PO (08:43)
[2022-05-12] MEDS: LORazepam 1 MG TABLET PO ×2 (10:52→20:04)
--- NOTE | 2022-05-12 12:18 | P.PNPSI_ITS ---
Subjective Subjective Date of Service: 05/12/22 Reason For Visit: Bipolar D/O w/psychosis; substance abuse-benzodiaz Interim History: reports today feeling upset because she was redirected around clothing and other patients and sharing same. Was noticeably more labile and tearful today. Talked about her taxes and fear that people had stolen her tox money. Reports wanting to see her children tomorrow on and misses them. Does feel positive that her fiance is in agreement with pursuing couples work. Sleep okay. Appetite okay. Attending groups. No medication concerns. No SI or HI. No overt psychosis. Medication Compliance: Yes Side effects from medications: No Attending Groups: Yes Review of Systems Acute medical concerns: No Review of Systems Review of Systems Unremarkable Mental Status Exam Mental Status Exam Narrative: Pleasant. Engaged. Fair self-care. Slightly pressured speech and over inclusive at times. Slightly more labile today and more tearful. No SI. No HI. No agitation or psychosis. Insight judgment okay Diagnostics Vital Signs (24Hr): Vital Signs - 24 hr 05/11/22 21:15 05/12/22 06:45 Temperature 97.6 F 96.9 F Pulse Rate 74 61 Respiratory Rate 16 Blood Pressure 118/74 104/61 Pulse Oximetry 100 100 Oxygen Delivery Method Room Air Room Air Medications Medications Current Medications Acetaminophen (Acetaminophen 325 Mg Tablet) 650 mg PO Q6H PRN PRN Reason: Headache/Pain Mild Scale (1-3) Last Admin: 05/07/22 17:32 Dose: 650 mg Al Hydroxide/Mg Hydroxide (Magnesium Hydrox/Alum Hydrox 30 Ml Oral.Susp) 30 ml PO Q6H PRN PRN Reason: Heartburn/Nausea Alprazolam (Alprazolam 0.5 Mg Tablet) 0.5 mg PO TID [facility] Last Admin: 05/12/22 08:43 Dose: 0.5 mg Amphetamine/Dextroamphetamine (Dextroamphetamine/Amphetamine Xr 5 Mg Cap.Er.24h) 15 mg PO DAILY [facility] Last Admin: 05/12/22 08:43 Dose: 15 mg Benztropine Mesylate (Benztropine Mesylate 1 Mg Tablet) 1 mg PO BID [facility] Last Admin: 05/12/22 08:43 Dose: 1 mg Cariprazine (Cariprazine Hcl 1.5 Mg Capsule) 4.5 mg PO DAILY [facility] Last Admin: 05/12/22 08:43 Dose: 4.5 mg Hydroxyzine HCl (Hydroxyzine Hcl 25 Mg Tablet) 25 mg PO BEDTIME PRN PRN Reason: Anxiety Ibuprofen (Ibuprofen 800 Mg Tablet) 800 mg PO Q8H PRN PRN Reason: Pain, Mild (Pain Scale 1-3) Last Admin: 05/02/22 14:24 Dose: 800 mg Lamotrigine (Lamotrigine 25 Mg Tablet) 25 mg PO BID [facility] Last Admin: 05/12/22 08:43 Dose: 25 mg Lorazepam (Lorazepam 1 Mg Tablet) 1 mg PO Q4H PRN PRN Reason: agitation Last Admin: 05/12/22 10:52 Dose: 1 mg Magnesium Hydroxide (Milk Of Magnesia 30 Ml Oral.Susp) 30 ml PO DAILY PRN PRN Reason: Constipation Last Admin: 04/27/22 15:49 Dose: 30 ml Multi-Ingred Cream/Lotion/Oil/Oint (Mineral Oil/Petrolatum,White 106 Gm Tube) 1 appl TOPICAL TID [facility]; Protocol Last Admin: 05/12/22 10:52 Dose: Not Given Pt Own Medication ( (Act Lozenge 1 Tab)) 1 tab PO BID PRN PRN Reason: Dry Mouth Last Admin: 05/10/22 17:18 Dose: 1 tab Non-Formulary Medication (Patient Own Medication) 1 each PO BID PRN PRN Reason: Dry Mouth Last Admin: 05/09/22 11:07 Dose: 1 each Olanzapine (Olanzapine 5 Mg Tablet) 5 mg PO Q4H PRN PRN Reason: lability, agitation Last Admin: 05/08/22 13:26 Dose: 5 mg Olanzapine (Olanzapine 10 Mg Tablet) 10 mg PO BEDTIME [facility] Last Admin: 05/11/22 21:25 Dose: 10 mg Saliva Substitute (Dry Mouth [place] 60 Ml [place]) 1 spray MUCOUS MEM Q2H PRN PRN Reason: Dry Mouth Last Admin: 05/01/22 11:07 Dose: 1 spray Trazodone HCl (Trazodone Hcl 50 Mg Tablet) 50 mg PO BEDTIME PRN PRN Reason: Insomnia Last Admin: 05/09/22 19:42 Dose: 50 mg Allergies Allergies Allergy/AdvReac Type Severity Reaction Status Date / Time cat dander [cats] Allergy Itchy Eyes Verified 04/25/22 00:28 dog dander [dogs] Allergy Itchy Eyes Verified 04/25/22 00:29 Assessment & Plan Assessment & Plan (1) Substance induced mood disorder: Status: Acute Code(s): F19.94 - Other psychoactive substance use, unspecified with psychoactive substance-induced mood disorder (2) Polysubstance abuse: Status: Acute Code(s): F19.10 - Other psychoactive substance abuse, uncomplicated (3) ADHD: Status: Acute Code(s): F90.9 - Attention-deficit hyperactivity disorder, unspecified type Plan 41 yo female, hx depression, ADHD, anxiety, obsessive qualities and questionable bipolar disorder. Hx of polysubstance abuse with detox in 2020 from Xanax, Adderall. Current OP regime is Xanax, Adderall, Paxil. Psychotic and labile on presentation, question of anand vs substance induced mood sx. Pt at this time, declines referrals and treatment. My treatment is [facility]. Plan: Observe Collateral contacts Continue Haldol prn Initiate Olanzapine Decrease Xanax-taper attempt Decrease Adderall-taper attempt MRI Head secondary to falls-pt refuses Labs-pt refuses Assessment and plan for 05/05/2022 Patient seen case reviewed with nursing staff. Patient seems preoccupied with the fact that she was somehow misunderstood railroaded and gas let it by her partner and her identity perhaps have been stolen. Somewhat expansive not overly depressed insight somewhat limited Patient has been started on Vryalar 05/06/22 Continue current regime. Collateral [id number] and district court on 05/07. 05/08/22 Continue current plan Support her treatment planning and sound decision making. 05/09/22 Increase Vraylar to 4.5 mg daily 05/10/22 Continue current plan 05/12/22: No changes to current plan I spent minutes with the patient and/or on the patient floor today, greater than?50% of which was spent counseling/coordinating care. Reason for contiued inpatient stay Substantial Risk for: inability to function
[2022-05-12] MEDS: Mineral Oil/Petrolatum,White 106 GM Tube 1 APPL TOPICAL ×2 (14:37→21:31)
[2022-05-12 18:00] VITALS: BP 110/66; PULSE 68; RESP 18; TEMP 36.6; O2SAT 99
[2022-05-12] MEDS: OLANZapine 10 MG TABLET PO (21:31)
[2022-05-12] MEDS: traZODone HCL 50 MG TABLET PO (21:31)
[2022-05-13 06:00] VITALS: BP 136/71; PULSE 65; TEMP 36.1; O2SAT 100
[2022-05-13] MEDS: Dextroamphetamine/Amphetamine XR 5 MG CAP.ER.24H 15 MG PO (09:39)
[2022-05-13] MEDS: Benztropine Mesylate 1 MG TABLET PO ×2 (09:39→21:51)
[2022-05-13] MEDS: lamoTRIgine 25 MG TABLET PO ×2 (09:39→21:51)
[2022-05-13] MEDS: ALPRAZolam 0.5 MG TABLET PO ×2 (09:40→14:50)
[2022-05-13] MEDS: Cariprazine HCl 1.5 MG CAPSULE 4.5 MG PO (09:40)
[2022-05-13] MEDS: Mineral Oil/Petrolatum,White 106 GM Tube 1 APPL TOPICAL (09:40)
--- NOTE | 2022-05-13 16:06 | HO.PSYCHPN ---
Subjective Subjective Date of Service: 05/13/22 Reason For Visit: Bipolar D/O w/psychosis; substance abuse-benzodiaz Interim History: reports today feeling her mood is in a good space. Enjoying group. Reports sleep has been okay. Reports her main focus is helping others now and talk about yazidism And helping with the conflict in [facility]. This did appear to be slightly grandiose in nature. No medication concerns. No SI or HI. Medication Compliance: Yes Side effects from medications: No Attending Groups: Yes Review of Systems Acute medical concerns: No Review of Systems Review of Systems Unremarkable Mental Status Exam Mental Status Exam Narrative: Pleasant. Engaged. Fair self-care. Slightly pressured speech and over inclusive at times. mood appeared bright today. No SI. No HI. No agitation or Overt psychosis. Insight judgment okay Diagnostics Vital Signs (24Hr): Vital Signs - 24 hr 05/12/22 18:00 05/13/22 06:00 Temperature 98 F 96.9 F Pulse Rate 68 65 Respiratory Rate 18 Blood Pressure 110/66 136/71 Pulse Oximetry 99 100 Oxygen Delivery Method Room Air Room Air Medications Medications Current Medications Acetaminophen (Acetaminophen 325 Mg Tablet) 650 mg PO Q6H PRN PRN Reason: Headache/Pain Mild Scale (1-3) Last Admin: 05/07/22 17:32 Dose: 650 mg Al Hydroxide/Mg Hydroxide (Magnesium Hydrox/Alum Hydrox 30 Ml Oral.Susp) 30 ml PO Q6H PRN PRN Reason: Heartburn/Nausea Amphetamine/Dextroamphetamine (Dextroamphetamine/Amphetamine Xr 5 Mg Cap.Er.24h) 15 mg PO DAILY [facility] Last Admin: 05/13/22 09:39 Dose: 15 mg Benztropine Mesylate (Benztropine Mesylate 1 Mg Tablet) 1 mg PO BID [facility] Last Admin: 05/13/22 09:39 Dose: 1 mg Cariprazine (Cariprazine Hcl 1.5 Mg Capsule) 4.5 mg PO DAILY [facility] Last Admin: 05/13/22 09:40 Dose: 4.5 mg Hydroxyzine HCl (Hydroxyzine Hcl 25 Mg Tablet) 25 mg PO BEDTIME PRN PRN Reason: Anxiety Ibuprofen (Ibuprofen 800 Mg Tablet) 800 mg PO Q8H PRN PRN Reason: Pain, Mild (Pain Scale 1-3) Last Admin: 05/02/22 14:24 Dose: 800 mg Lamotrigine (Lamotrigine 25 Mg Tablet) 25 mg PO BID [facility] Last Admin: 05/13/22 09:39 Dose: 25 mg Lorazepam (Lorazepam 1 Mg Tablet) 1 mg PO Q4H PRN PRN Reason: agitation Last Admin: 05/12/22 20:04 Dose: 1 mg Magnesium Hydroxide (Milk Of Magnesia 30 Ml Oral.Susp) 30 ml PO DAILY PRN PRN Reason: Constipation Last Admin: 04/27/22 15:49 Dose: 30 ml Multi-Ingred Cream/Lotion/Oil/Oint (Mineral Oil/Petrolatum,White 106 Gm Tube) 1 appl TOPICAL TID [facility]; Protocol Last Admin: 05/13/22 14:50 Dose: Not Given Pt Own Medication ( (Act Lozenge 1 Tab)) 1 tab PO BID PRN PRN Reason: Dry Mouth Last Admin: 05/10/22 17:18 Dose: 1 tab Non-Formulary Medication (Patient Own Medication) 1 each PO BID PRN PRN Reason: Dry Mouth Last Admin: 05/09/22 11:07 Dose: 1 each Olanzapine (Olanzapine 5 Mg Tablet) 5 mg PO Q4H PRN PRN Reason: lability, agitation Last Admin: 05/08/22 13:26 Dose: 5 mg Olanzapine (Olanzapine 10 Mg Tablet) 10 mg PO BEDTIME [facility] Last Admin: 05/12/22 21:31 Dose: 10 mg Saliva Substitute (Dry Mouth [place] 60 Ml [place]) 1 spray MUCOUS MEM Q2H PRN PRN Reason: Dry Mouth Last Admin: 05/01/22 11:07 Dose: 1 spray Trazodone HCl (Trazodone Hcl 50 Mg Tablet) 50 mg PO BEDTIME PRN PRN Reason: Insomnia Last Admin: 05/12/22 21:31 Dose: 50 mg Allergies Allergies Allergy/AdvReac Type Severity Reaction Status Date / Time cat dander [cats] Allergy Itchy Eyes Verified 04/25/22 00:28 dog dander [dogs] Allergy Itchy Eyes Verified 04/25/22 00:29 Assessment & Plan Assessment & Plan (1) Substance induced mood disorder: Status: Acute Code(s): F19.94 - Other psychoactive substance use, unspecified with psychoactive substance-induced mood disorder (2) Polysubstance abuse: Status: Acute Code(s): F19.10 - Other psychoactive substance abuse, uncomplicated (3) ADHD: Status: Acute Code(s): F90.9 - Attention-deficit hyperactivity disorder, unspecified type Plan 41 yo female, hx depression, ADHD, anxiety, obsessive qualities and questionable bipolar disorder. Hx of polysubstance abuse with detox in 2020 from Xanax, Adderall. Current OP regime is Xanax, Adderall, Paxil. Psychotic and labile on presentation, question of anand vs substance induced mood sx. Pt at this time, declines referrals and treatment. My treatment is [facility]. Plan: Observe Collateral contacts Continue Haldol prn Initiate Olanzapine Decrease Xanax-taper attempt Decrease Adderall-taper attempt MRI Head secondary to falls-pt refuses Labs-pt refuses Assessment and plan for 05/05/2022 Patient seen case reviewed with nursing staff. Patient seems preoccupied with the fact that she was somehow misunderstood railroaded and gas let it by her partner and her identity perhaps have been stolen. Somewhat expansive not overly depressed insight somewhat limited Patient has been started on Vryalar 05/06/22 Continue current regime. Collateral [id number] and district court on 05/07. 05/08/22 Continue current plan Support her treatment planning and sound decision making. 05/09/22 Increase Vraylar to 4.5 mg daily 05/10/22 Continue current plan 05/13/22: No changes to current plan I spent minutes with the patient and/or on the patient floor today, greater than?50% of which was spent counseling/coordinating care. Reason for contiued inpatient stay Substantial Risk for: rapid decompensation
[2022-05-13] MEDS: LORazepam 1 MG TABLET PO ×2 (16:25→20:31)
[2022-05-13 21:00] VITALS: BP 102/74; PULSE 75; TEMP 35.7
[2022-05-13] MEDS: traZODone HCL 50 MG TABLET PO ×2 (21:51→23:11)
[2022-05-13] MEDS: OLANZapine 10 MG TABLET PO (21:51)
[2022-05-14 06:00] VITALS: BP 108/66; PULSE 64; RESP 18; TEMP 36.5
[2022-05-14] MEDS: Dextroamphetamine/Amphetamine XR 5 MG CAP.ER.24H 15 MG PO ×2 (06:31→14:20)
[2022-05-14] MEDS: lamoTRIgine 25 MG TABLET PO ×2 (08:54→20:15)
[2022-05-14] MEDS: Cariprazine HCl 1.5 MG CAPSULE 4.5 MG PO (08:55)
[2022-05-14] MEDS: Benztropine Mesylate 1 MG TABLET PO ×2 (08:55→20:15)
[2022-05-14] MEDS: Mineral Oil/Petrolatum,White 106 GM Tube 1 APPL TOPICAL (09:03)
[2022-05-14] MEDS: LORazepam 1 MG TABLET PO ×2 (09:13→20:22)
[2022-05-14] MEDS: ALPRAZolam 0.5 MG TABLET PO ×3 (10:37→20:15)
[2022-05-14 16:34] VITALS: BP 134/75; PULSE 77; TEMP 37.2
--- NOTE | 2022-05-14 17:09 | P.PNPSI_ITS ---
Subjective Subjective Date of Service: 05/14/22 Reason For Visit: Bipolar D/O w/psychosis; substance abuse-benzodiaz Subjective Notes: Conditional Voluntary Healthcare Proxy: No Guardianship: No Medical Problems Affecting Mental Status: No Interim History: I can solve the problems in [facility]. 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 Asks for an staff attorney for her taxes, a new [employer] worker, a move of court site for custody hearing. Angry- If I cannot get my stuff I will light the house on fire. I feel the [employer] did not treat me well. Some jehovah's witness preoccupations as well Declines medication changes. Medication Compliance: Yes Side effects from medications: No Attending Groups: Yes Review of Systems Acute medical concerns: No Medical Review of Systems: unchanged Review of Systems Reports behavioral changes and Reports confusion Psychiatric: Reports anxiety, Reports behavioral changes, Reports confusion, Reports depression, Reports difficulty concentrating, Reports hopelessness, Reports irritability, Reports anhedonia, Reports mood swings, Reports paranoia and Reports homicidal ideation Mental Status Exam Mental Status Exam Patient Appearance: Appropriate Patient Orientation: Person, Place, Time and Situation Level of Consciousness: Alert Patient Behavior: Talkative, Cooperative and Good Eye Contact Mood Description: Labile and Angry Affect Description: Labile Ability to Follow Directions: Good Speech Pattern: Spontaneous Speech Memory Description: Episodic Impaired Delusions: Being Controlled and Paranoid Ideation Perceptual Disturbances: Depersonalization and Derealization Thought Process: Illogical, Distracted and Rumination Thought Content: positive for Circumstantial, positive for Perseveration, positive for Preoccupation and positive for Homicidal Ideation Depressive Symptoms: Increased Anxiety, Increased Irritability, Feelings of Worthlessness, Hopelessness, Feelings of Guilt, Unhappiness, Low Self Esteem and Difficulty Concentrating Abnormal Motor Activity Signs and Symptoms: Agitation Judgement: Poor Diagnostics Vital Signs (24Hr): Vital Signs - 24 hr 05/13/22 21:00 05/14/22 06:00 05/14/22 16:34 Temperature 96.2 F L 97.7 F 98.9 F Pulse Rate 75 64 77 Respiratory Rate 18 Blood Pressure 102/74 108/66 134/75 Medications Medications Current Medications Acetaminophen (Acetaminophen 325 Mg Tablet) 650 mg PO Q6H PRN PRN Reason: Headache/Pain Mild Scale (1-3) Last Admin: 05/07/22 17:32 Dose: 650 mg Al Hydroxide/Mg Hydroxide (Magnesium Hydrox/Alum Hydrox 30 Ml Oral.Susp) 30 ml PO Q6H PRN PRN Reason: Heartburn/Nausea Alprazolam (Alprazolam 0.5 Mg Tablet) 0.5 mg PO TID [facility] Last Admin: 05/14/22 14:20 Dose: 0.5 mg Amphetamine/Dextroamphetamine (Dextroamphetamine/Amphetamine Xr 5 Mg Cap.Er.24h) 15 mg PO 0900,1500 [facility] Last Admin: 05/14/22 14:20 Dose: 15 mg Benztropine Mesylate (Benztropine Mesylate 1 Mg Tablet) 1 mg PO BID [facility] Last Admin: 05/14/22 08:55 Dose: 1 mg Cariprazine (Cariprazine Hcl 1.5 Mg Capsule) 4.5 mg PO DAILY [facility] Last Admin: 05/14/22 08:55 Dose: 4.5 mg Hydroxyzine HCl (Hydroxyzine Hcl 25 Mg Tablet) 25 mg PO BEDTIME PRN PRN Reason: Anxiety Ibuprofen (Ibuprofen 800 Mg Tablet) 800 mg PO Q8H PRN PRN Reason: Pain, Mild (Pain Scale 1-3) Last Admin: 05/02/22 14:24 Dose: 800 mg Lamotrigine (Lamotrigine 25 Mg Tablet) 25 mg PO BID [facility] Last Admin: 05/14/22 08:54 Dose: 25 mg Lorazepam (Lorazepam 1 Mg Tablet) 1 mg PO Q4H PRN PRN Reason: agitation Last Admin: 05/14/22 09:13 Dose: 1 mg Magnesium Hydroxide (Milk Of Magnesia 30 Ml Oral.Susp) 30 ml PO DAILY PRN PRN Reason: Constipation Last Admin: 04/27/22 15:49 Dose: 30 ml Multi-Ingred Cream/Lotion/Oil/Oint (Mineral Oil/Petrolatum,White 106 Gm Tube) 1 appl TOPICAL TID [facility]; Protocol Last Admin: 05/14/22 14:35 Dose: Not Given Pt Own Medication ( (Act Lozenge 1 Tab)) 1 tab PO BID PRN PRN Reason: Dry Mouth Last Admin: 05/10/22 17:18 Dose: 1 tab Non-Formulary Medication (Patient Own Medication) 1 each PO BID PRN PRN Reason: Dry Mouth Last Admin: 05/09/22 11:07 Dose: 1 each Olanzapine (Olanzapine 5 Mg Tablet) 5 mg PO Q4H PRN PRN Reason: lability, agitation Last Admin: 05/08/22 13:26 Dose: 5 mg Olanzapine (Olanzapine 10 Mg Tablet) 10 mg PO BEDTIME [facility] Last Admin: 05/13/22 21:51 Dose: 10 mg Saliva Substitute (Dry Mouth [place] 60 Ml [place]) 1 spray MUCOUS MEM Q2H PRN PRN Reason: Dry Mouth Last Admin: 05/01/22 11:07 Dose: 1 spray Trazodone HCl (Trazodone Hcl 50 Mg Tablet) 50 mg PO BEDTIME PRN PRN Reason: Insomnia Last Admin: 05/13/22 23:11 Dose: 50 mg Allergies Allergies Allergy/AdvReac Type Severity Reaction Status Date / Time cat dander [cats] Allergy Itchy Eyes Verified 04/25/22 00:28 dog dander [dogs] Allergy Itchy Eyes Verified 04/25/22 00:29 Assessment & Plan Assessment & Plan (1) Substance induced mood disorder: Status: Acute Code(s): F19.94 - Other psychoactive substance use, unspecified with psychoactive substance-induced mood disorder (2) Polysubstance abuse: Status: Acute Code(s): F19.10 - Other psychoactive substance abuse, uncomplicated (3) ADHD: Status: Acute Code(s): F90.9 - Attention-deficit hyperactivity disorder, unspecified type Plan 41 yo female, hx depression, ADHD, anxiety, obsessive qualities and questionable bipolar disorder. Hx of polysubstance abuse with detox in 2020 from Xanax, Adderall. Current OP regime is Xanax, Adderall, Paxil. Psychotic and labile on presentation, question of anand vs substance induced mood sx. Pt at this time, declines referrals and treatment. My treatment is [facility], hejajan and [facility]. Plan: Observe Collateral contacts Continue Haldol prn Initiate Olanzapine Decrease Xanax-taper attempt Decrease Adderall-taper attempt MRI Head secondary to falls-pt refuses Labs-pt refuses Assessment and plan for 05/05/2022 Patient seen case reviewed with nursing staff. Patient seems preoccupied with the fact that she was somehow misunderstood railroaded and gas let it by her partner and her identity perhaps have been stolen. Somewhat expansive not overly depressed insight somewhat limited Patient has been started on Vryalar which should be helpful for bipolar states and mood instability would encourage Adderall taper 05/14/22- Pt declines changes today. Discussed adjustments in Xanax, Adderall. Continue to monitor, educate and adjust meds as she will allow. I spent minutes with the patient and/or on the patient floor today, greater than?50% of which was spent counseling/coordinating care. Patient educated on: therapeutic strategies Informed Consent: further education needed Reason for contiued inpatient stay Substantial Risk for: rapid decompensation
[2022-05-14] MEDS: OLANZapine 10 MG TABLET PO (20:15)
[2022-05-14] MEDS: traZODone HCL 50 MG TABLET PO (22:11)
[2022-05-15 06:00] VITALS: BP 127/61; PULSE 68; TEMP 36.4; O2SAT 99
[2022-05-15] MEDS: ALPRAZolam 0.5 MG TABLET PO ×3 (08:39→20:52)
[2022-05-15] MEDS: Dextroamphetamine/Amphetamine XR 5 MG CAP.ER.24H 15 MG PO ×2 (08:40→14:41)
[2022-05-15] MEDS: Benztropine Mesylate 1 MG TABLET PO ×2 (08:40→20:52)
[2022-05-15] MEDS: Cariprazine HCl 1.5 MG CAPSULE 4.5 MG PO (08:40)
[2022-05-15] MEDS: lamoTRIgine 25 MG TABLET PO ×2 (08:40→20:52)
[2022-05-15] MEDS: Mineral Oil/Petrolatum,White 106 GM Tube 1 APPL TOPICAL ×3 (10:54→21:20)
[2022-05-15] MEDS: Dry Mouth Spray 60 ML SPRAY 1 SPRAY MUCOUS MEM (11:15)
[2022-05-15] MEDS: LORazepam 1 MG TABLET PO (12:46)
--- NOTE | 2022-05-15 16:01 | P.PNPSI_ITS ---
Subjective Subjective Date of Service: 05/15/22 Reason For Visit: Bipolar D/O w/psychosis; substance abuse-benzodiaz Subjective Notes: Conditional Voluntary Healthcare Proxy: No Guardianship: No Medical Problems Affecting Mental Status: No Interim History: Paranoia evident, believes her partner has blocked her calls. Expresses concerns for daughter's safety. Asks that the president and supreme court become involved. Later in the [id number], oriented, without psychosis, without paranoia, organized and with appropriate behavior. Speech is coherent and logical-carried on a clear discussion for 40 minutes with no sx evidenced. Medication Compliance: Yes Side effects from medications: No Attending Groups: Yes Review of Systems Acute medical concerns: No Medical Review of Systems: unchanged Review of Systems Reports behavioral changes, Reports confusion and Reports memory loss Psychiatric: Reports anxiety, Reports behavioral changes, Reports confusion, Reports depression, Reports difficulty concentrating, Reports hopelessness, Reports irritability, Reports anhedonia, Reports memory loss, Reports mood swings and Reports paranoia Mental Status Exam Mental Status Exam Patient Appearance: Appropriate Patient Orientation: Person, Place, Time and Situation Level of Consciousness: Alert Patient Behavior: Appropriate, Guarded, Talkative, Cooperative, Suspicious and Good Eye Contact Mood Description: Labile Affect Description: Labile Patient Cognition Impaired: No Ability to Follow Directions: Good Speech Pattern: Spontaneous Speech Memory Description: Episodic Impaired Hallucinations: None Delusions: Paranoid Ideation Perceptual Disturbances: Depersonalization and Derealization Thought Process: Distracted and Rumination Thought Content: positive for Circumstantial and positive for Perseveration Depressive Symptoms: Increased Irritability, Unhappiness and Difficulty Concentrating Abnormal Motor Activity Signs and Symptoms: Agitation Judgement: Fair Diagnostics Vital Signs (24Hr): Vital Signs - 24 hr 05/14/22 16:34 05/15/22 06:00 Temperature 98.9 F 97.5 F Pulse Rate 77 68 Blood Pressure 134/75 127/61 Pulse Oximetry 99 Oxygen Delivery Method Room Air Medications Medications Current Medications Acetaminophen (Acetaminophen 325 Mg Tablet) 650 mg PO Q6H PRN PRN Reason: Headache/Pain Mild Scale (1-3) Last Admin: 05/07/22 17:32 Dose: 650 mg Al Hydroxide/Mg Hydroxide (Magnesium Hydrox/Alum Hydrox 30 Ml Oral.Susp) 30 ml PO Q6H PRN PRN Reason: Heartburn/Nausea Alprazolam (Alprazolam 0.5 Mg Tablet) 0.5 mg PO TID [facility] Last Admin: 05/15/22 14:41 Dose: 0.5 mg Amphetamine/Dextroamphetamine (Dextroamphetamine/Amphetamine Xr 5 Mg Cap.Er.24h) 15 mg PO 0900,1500 [facility] Last Admin: 05/15/22 14:41 Dose: 15 mg Benztropine Mesylate (Benztropine Mesylate 1 Mg Tablet) 1 mg PO BID [facility] Last Admin: 05/15/22 08:40 Dose: 1 mg Cariprazine (Cariprazine Hcl 1.5 Mg Capsule) 4.5 mg PO DAILY [facility] Last Admin: 05/15/22 08:40 Dose: 4.5 mg Hydroxyzine HCl (Hydroxyzine Hcl 25 Mg Tablet) 25 mg PO BEDTIME PRN PRN Reason: Anxiety Ibuprofen (Ibuprofen 800 Mg Tablet) 800 mg PO Q8H PRN PRN Reason: Pain, Mild (Pain Scale 1-3) Last Admin: 05/02/22 14:24 Dose: 800 mg Lamotrigine (Lamotrigine 25 Mg Tablet) 25 mg PO BID [facility] Last Admin: 05/15/22 08:40 Dose: 25 mg Lorazepam (Lorazepam 1 Mg Tablet) 1 mg PO Q4H PRN PRN Reason: agitation Last Admin: 05/15/22 12:46 Dose: 1 mg Magnesium Hydroxide (Milk Of Magnesia 30 Ml Oral.Susp) 30 ml PO DAILY PRN PRN Reason: Constipation Last Admin: 04/27/22 15:49 Dose: 30 ml Multi-Ingred Cream/Lotion/Oil/Oint (Mineral Oil/Petrolatum,White 106 Gm Tube) 1 appl TOPICAL TID [facility]; Protocol Last Admin: 05/15/22 14:42 Dose: 1 appl Pt Own Medication ( (Act Lozenge 1 Tab)) 1 tab PO BID PRN PRN Reason: Dry Mouth Last Admin: 05/10/22 17:18 Dose: 1 tab Non-Formulary Medication (Patient Own Medication) 1 each PO BID PRN PRN Reason: Dry Mouth Last Admin: 05/15/22 11:15 Dose: 1 each Olanzapine (Olanzapine 5 Mg Tablet) 5 mg PO Q4H PRN PRN Reason: lability, agitation Last Admin: 05/08/22 13:26 Dose: 5 mg Olanzapine (Olanzapine 10 Mg Tablet) 10 mg PO BEDTIME [facility] Last Admin: 05/14/22 20:15 Dose: 10 mg Saliva Substitute (Dry Mouth [place] 60 Ml [place]) 1 spray MUCOUS MEM Q2H PRN PRN Reason: Dry Mouth Last Admin: 05/15/22 11:15 Dose: 1 spray Trazodone HCl (Trazodone Hcl 50 Mg Tablet) 50 mg PO BEDTIME PRN PRN Reason: Insomnia Last Admin: 05/14/22 22:11 Dose: 50 mg Allergies Allergies Allergy/AdvReac Type Severity Reaction Status Date / Time cat dander [cats] Allergy Itchy Eyes Verified 04/25/22 00:28 dog dander [dogs] Allergy Itchy Eyes Verified 04/25/22 00:29 Assessment & Plan Assessment & Plan (1) Substance induced mood disorder: Status: Acute Code(s): F19.94 - Other psychoactive substance use, unspecified with psychoactive substance-induced mood disorder (2) Polysubstance abuse: Status: Acute Code(s): F19.10 - Other psychoactive substance abuse, uncomplicated (3) ADHD: Status: Acute Code(s): F90.9 - Attention-deficit hyperactivity disorder, unspecified type Plan 41 yo female, hx depression, ADHD, anxiety, obsessive qualities and questionable bipolar disorder. Hx of polysubstance abuse with detox in 2020 from Xanax, Adderall. Current OP regime is Xanax, Adderall, Paxil. Psychotic and labile on presentation, question of anand vs substance induced mood sx. Pt at this time, declines referrals and treatment. My treatment is [facility]. Plan: Observe Collateral contacts Continue Haldol prn Initiate Olanzapine Decrease Xanax-taper attempt Decrease Adderall-taper attempt MRI Head secondary to falls-pt refuses Labs-pt refuses Assessment and plan for 05/05/2022 Patient seen case reviewed with nursing staff. Patient seems preoccupied with the fact that she was somehow misunderstood railroaded and gas let it by her partner and her identity perhaps have been stolen. Somewhat expansive not overly depressed insight somewhat limited Patient has been started on Vryalar which should be helpful for bipolar states and mood instability would encourage Adderall taper 05/15/22: Lability persists. Paranoid, distracted in the a.m. This improved significantly in the afternoon. Continue current regime. I spent minutes with the patient and/or on the patient floor today, greater than?50% of which was spent counseling/coordinating care. Patient educated on: therapeutic strategies Informed Consent: further education needed Reason for contiued inpatient stay Substantial Risk for: inability to function and rapid decompensation
[2022-05-15 18:00] VITALS: BP 114/79; PULSE 98; RESP 16; TEMP 36.5; O2SAT 98
[2022-05-15] MEDS: OLANZapine 10 MG TABLET PO (20:52)
[2022-05-15] MEDS: traZODone HCL 50 MG TABLET PO (21:39)
[2022-05-16 06:00] VITALS: BP 109/58; PULSE 78; TEMP 35.8; O2SAT 97
[2022-05-16] MEDS: Dextroamphetamine/Amphetamine XR 5 MG CAP.ER.24H 15 MG PO ×2 (07:58→14:21)
[2022-05-16] MEDS: Cariprazine HCl 1.5 MG CAPSULE 4.5 MG PO (07:59)
[2022-05-16] MEDS: Benztropine Mesylate 1 MG TABLET PO ×2 (07:59→19:31)
[2022-05-16] MEDS: ALPRAZolam 0.5 MG TABLET PO ×3 (07:59→19:31)
[2022-05-16] MEDS: lamoTRIgine 25 MG TABLET PO ×2 (07:59→19:31)
[2022-05-16] MEDS: LORazepam 1 MG TABLET PO ×2 (11:20→18:23)
--- NOTE | 2022-05-16 15:12 | P.PNPSI_ITS ---
Subjective Subjective Date of Service: 05/16/22 Reason For Visit: Bipolar D/O w/psychosis; substance abuse-benzodiaz Subjective Notes: Conditional Voluntary Healthcare Proxy: No Guardianship: No Medical Problems Affecting Mental Status: No Interim History: Clear, alert, participating, without paranoia, mild intermittent tangential content however mostly on point discussion. Attempting to contact partner to negotiate spending hers and children's birthdays together-prepared to compromise with DCF. Medication Compliance: Yes Side effects from medications: No Attending Groups: Yes Review of Systems Acute medical concerns: No Medical Review of Systems: unchanged Review of Systems Psychiatric: Reports no additional psychiatric complaints Mental Status Exam Mental Status Exam Patient Appearance: Appropriate Patient Orientation: Person, Place, Time and Situation Level of Consciousness: Alert Patient Behavior: Appropriate, Talkative, Cooperative and Good Eye Contact Mood Description: Calm Affect Description: Calm Patient Cognition Impaired: No Ability to Follow Directions: Good Speech Pattern: Spontaneous Speech Memory Description: Episodic Impaired Hallucinations: None Delusions: Not Present Perceptual Disturbances: Depersonalization (decreased) and Derealization (decreased) Thought Process: Intact and Goal Oriented Thought Content: positive for Goal Oriented Depressive Symptoms: Increased Anxiety Judgement: Good Diagnostics Vital Signs (24Hr): Vital Signs - 24 hr 05/15/22 18:00 05/16/22 06:00 Temperature 97.7 F 96.4 F L Pulse Rate 98 78 Respiratory Rate 16 Blood Pressure 114/79 109/58 L Pulse Oximetry 98 97 Oxygen Delivery Method Room Air Room Air Medications Medications Current Medications Acetaminophen (Acetaminophen 325 Mg Tablet) 650 mg PO Q6H PRN PRN Reason: Headache/Pain Mild Scale (1-3) Last Admin: 05/07/22 17:32 Dose: 650 mg Al Hydroxide/Mg Hydroxide (Magnesium Hydrox/Alum Hydrox 30 Ml Oral.Susp) 30 ml PO Q6H PRN PRN Reason: Heartburn/Nausea Alprazolam (Alprazolam 0.5 Mg Tablet) 0.5 mg PO TID [facility] Last Admin: 05/16/22 14:21 Dose: 0.5 mg Amphetamine/Dextroamphetamine (Dextroamphetamine/Amphetamine Xr 5 Mg Cap.Er.24h) 15 mg PO 0900,1500 [facility] Last Admin: 05/16/22 14:21 Dose: 15 mg Benztropine Mesylate (Benztropine Mesylate 1 Mg Tablet) 1 mg PO BID [facility] Last Admin: 05/16/22 07:59 Dose: 1 mg Cariprazine (Cariprazine Hcl 3 Mg Capsule) 6 mg PO DAILY [facility] Hydroxyzine HCl (Hydroxyzine Hcl 25 Mg Tablet) 25 mg PO BEDTIME PRN PRN Reason: Anxiety Ibuprofen (Ibuprofen 800 Mg Tablet) 800 mg PO Q8H PRN PRN Reason: Pain, Mild (Pain Scale 1-3) Last Admin: 05/02/22 14:24 Dose: 800 mg Lamotrigine (Lamotrigine 25 Mg Tablet) 25 mg PO BID [facility] Last Admin: 05/16/22 07:59 Dose: 25 mg Lorazepam (Lorazepam 1 Mg Tablet) 1 mg PO Q4H PRN PRN Reason: agitation Last Admin: 05/16/22 11:20 Dose: 1 mg Magnesium Hydroxide (Milk Of Magnesia 30 Ml Oral.Susp) 30 ml PO DAILY PRN PRN Reason: Constipation Last Admin: 04/27/22 15:49 Dose: 30 ml Multi-Ingred Cream/Lotion/Oil/Oint (Mineral Oil/Petrolatum,White 106 Gm Tube) 1 appl TOPICAL TID [facility]; Protocol Last Admin: 05/16/22 14:39 Dose: Not Given Pt Own Medication ( (Act Lozenge 1 Tab)) 1 tab PO BID PRN PRN Reason: Dry Mouth Last Admin: 05/10/22 17:18 Dose: 1 tab Non-Formulary Medication (Patient Own Medication) 1 each PO BID PRN PRN Reason: Dry Mouth Last Admin: 05/15/22 11:15 Dose: 1 each Olanzapine (Olanzapine 5 Mg Tablet) 5 mg PO Q4H PRN PRN Reason: lability, agitation Last Admin: 05/08/22 13:26 Dose: 5 mg Olanzapine (Olanzapine 10 Mg Tablet) 10 mg PO BEDTIME [facility] Last Admin: 05/15/22 20:52 Dose: 10 mg Saliva Substitute (Dry Mouth [place] 60 Ml [place]) 1 spray MUCOUS MEM Q2H PRN PRN Reason: Dry Mouth Last Admin: 05/15/22 11:15 Dose: 1 spray Trazodone HCl (Trazodone Hcl 50 Mg Tablet) 50 mg PO BEDTIME PRN PRN Reason: Insomnia Last Admin: 05/15/22 21:39 Dose: 50 mg Allergies Allergies Allergy/AdvReac Type Severity Reaction Status Date / Time cat dander [cats] Allergy Itchy Eyes Verified 04/25/22 00:28 dog dander [dogs] Allergy Itchy Eyes Verified 04/25/22 00:29 Assessment & Plan Assessment & Plan (1) Substance induced mood disorder: Status: Acute Code(s): F19.94 - Other psychoactive substance use, unspecified with psychoactive substance-induced mood disorder (2) Polysubstance abuse: Status: Acute Code(s): F19.10 - Other psychoactive substance abuse, uncomplicated (3) ADHD: Status: Acute Code(s): F90.9 - Attention-deficit hyperactivity disorder, unspecified type Plan 41 yo female, hx depression, ADHD, anxiety, obsessive qualities and questionable bipolar disorder. Hx of polysubstance abuse with detox in 2020 from Xanax, Adderall. Current OP regime is Xanax, Adderall, Paxil. Psychotic and labile on presentation, question of anand vs substance induced mood sx. Pt at this time, declines referrals and treatment. My treatment is [facility]. Plan: Observe Collateral contacts Continue Haldol prn Initiate Olanzapine Decrease Xanax-taper attempt Decrease Adderall-taper attempt MRI Head secondary to falls-pt refuses Labs-pt refuses Assessment and plan for 05/05/2022 Patient seen case reviewed with nursing staff. Patient seems preoccupied with the fact that she was somehow misunderstood railroaded and gas let it by her partner and her identity perhaps have been stolen. Somewhat expansive not overly depressed insight somewhat limited Patient has been started on Vryalar which should be helpful for bipolar states and mood instability would encourage Adderall taper 05/16/22 Increase Vraylar to 6 mg daily, pt concurs. I spent minutes with the patient and/or on the patient floor today, greater than?50% of which was spent counseling/coordinating care. Patient educated on: medication risk/benefits and therapeutic strategies Informed Consent: understands and further education needed Reason for contiued inpatient stay Substantial Risk for: rapid decompensation
[2022-05-16] MEDS: OLANZapine 10 MG TABLET PO (19:31)
[2022-05-16] MEDS: traZODone HCL 50 MG TABLET PO (22:11)
[2022-05-16] MEDS: Mineral Oil/Petrolatum,White 106 GM Tube 1 APPL TOPICAL (22:12)
[2022-05-17 06:00] VITALS: BP 107/67; PULSE 72; RESP 16; TEMP 36.4; O2SAT 98
[2022-05-17] MEDS: Benztropine Mesylate 1 MG TABLET PO ×2 (08:23→20:11)
[2022-05-17] MEDS: lamoTRIgine 25 MG TABLET PO ×2 (08:23→20:10)
[2022-05-17] MEDS: Cariprazine HCl 3 MG CAPSULE 6 MG PO (08:23)
[2022-05-17] MEDS: ALPRAZolam 0.5 MG TABLET PO ×3 (08:23→20:10)
[2022-05-17] MEDS: Dextroamphetamine/Amphetamine XR 5 MG CAP.ER.24H 15 MG PO ×2 (08:23→14:50)
[2022-05-17] MEDS: Mineral Oil/Petrolatum,White 106 GM Tube 1 APPL TOPICAL (08:24)
[2022-05-17] MEDS: LORazepam 1 MG TABLET PO ×2 (13:50→20:10)
--- NOTE | 2022-05-17 15:30 | HO.PSYCHPN ---
Subjective Subjective Date of Service: 05/17/22 Reason For Visit: Bipolar D/O w/psychosis; substance abuse-benzodiaz Subjective Notes: Conditional Voluntary Healthcare Proxy: No Guardianship: No Medical Problems Affecting Mental Status: No Interim History: Appropriate discussion with partner, Jay Elcourtney, tw. Negotiating to see her children. Participating in process of what she needs to do with DCF, court, to see her children. Much improved-clear, non-psychotic, intermittent tangentiality Goal directed, attending milieu groups and interactive with others. Setting boundaries, reflective-tolerating Vraylar increase at this time. Medication Compliance: Yes Side effects from medications: No Attending Groups: Yes Review of Systems Acute medical concerns: No Medical Review of Systems: unchanged Review of Systems Psychiatric: Reports no additional psychiatric complaints Mental Status Exam Mental Status Exam Patient Appearance: Appropriate Patient Orientation: Person, Place, Time and Situation Level of Consciousness: Alert Patient Behavior: Appropriate, Talkative, Cooperative and Good Eye Contact Mood Description: Appropriate Affect Description: Appropriate Patient Cognition Impaired: No Ability to Follow Directions: Good Speech Pattern: Spontaneous Speech Memory Description: Episodic Impaired Hallucinations: None Delusions: Not Present Thought Process: Intact and Goal Oriented Thought Content: positive for Intact, positive for Goal Oriented, positive for Suicidal Ideation (denies) and positive for Homicidal Ideation (denies-I would never harm my family or friends-I would defend people to the end.) Depressive Symptoms: Low Self Esteem Judgement: Good Diagnostics Vital Signs (24Hr): Vital Signs - 24 hr 05/17/22 06:00 Temperature 97.6 F Pulse Rate 72 Respiratory Rate 16 Blood Pressure 107/67 Pulse Oximetry 98 Medications Medications Current Medications Acetaminophen (Acetaminophen 325 Mg Tablet) 650 mg PO Q6H PRN PRN Reason: Headache/Pain Mild Scale (1-3) Last Admin: 05/07/22 17:32 Dose: 650 mg Al Hydroxide/Mg Hydroxide (Magnesium Hydrox/Alum Hydrox 30 Ml Oral.Susp) 30 ml PO Q6H PRN PRN Reason: Heartburn/Nausea Alprazolam (Alprazolam 0.5 Mg Tablet) 0.5 mg PO TID [facility] Last Admin: 05/17/22 14:50 Dose: 0.5 mg Amphetamine/Dextroamphetamine (Dextroamphetamine/Amphetamine Xr 5 Mg Cap.Er.24h) 15 mg PO 0900,1500 [facility] Last Admin: 05/17/22 14:50 Dose: 15 mg Benztropine Mesylate (Benztropine Mesylate 1 Mg Tablet) 1 mg PO BID [facility] Last Admin: 05/17/22 08:23 Dose: 1 mg Cariprazine (Cariprazine Hcl 3 Mg Capsule) 6 mg PO DAILY [facility] Last Admin: 05/17/22 08:23 Dose: 6 mg Hydroxyzine HCl (Hydroxyzine Hcl 25 Mg Tablet) 25 mg PO BEDTIME PRN PRN Reason: Anxiety Ibuprofen (Ibuprofen 800 Mg Tablet) 800 mg PO Q8H PRN PRN Reason: Pain, Mild (Pain Scale 1-3) Last Admin: 05/02/22 14:24 Dose: 800 mg Lamotrigine (Lamotrigine 25 Mg Tablet) 25 mg PO BID [facility] Last Admin: 05/17/22 08:23 Dose: 25 mg Lorazepam (Lorazepam 1 Mg Tablet) 1 mg PO Q4H PRN PRN Reason: agitation Last Admin: 05/17/22 13:50 Dose: 1 mg Magnesium Hydroxide (Milk Of Magnesia 30 Ml Oral.Susp) 30 ml PO DAILY PRN PRN Reason: Constipation Last Admin: 04/27/22 15:49 Dose: 30 ml Multi-Ingred Cream/Lotion/Oil/Oint (Mineral Oil/Petrolatum,White 106 Gm Tube) 1 appl TOPICAL TID [facility]; Protocol Last Admin: 05/17/22 15:18 Dose: Not Given Pt Own Medication ( (Act Lozenge 1 Tab)) 1 tab PO BID PRN PRN Reason: Dry Mouth Last Admin: 05/16/22 20:19 Dose: 1 tab Non-Formulary Medication (Patient Own Medication) 1 each PO BID PRN PRN Reason: Dry Mouth Last Admin: 05/15/22 11:15 Dose: 1 each Olanzapine (Olanzapine 5 Mg Tablet) 5 mg PO Q4H PRN PRN Reason: lability, agitation Last Admin: 05/08/22 13:26 Dose: 5 mg Olanzapine (Olanzapine 10 Mg Tablet) 10 mg PO BEDTIME [facility] Last Admin: 05/16/22 19:31 Dose: 10 mg Saliva Substitute (Dry Mouth [place] 60 Ml [place]) 1 spray MUCOUS MEM Q2H PRN PRN Reason: Dry Mouth Last Admin: 05/15/22 11:15 Dose: 1 spray Trazodone HCl (Trazodone Hcl 50 Mg Tablet) 50 mg PO BEDTIME PRN PRN Reason: Insomnia Last Admin: 05/16/22 22:11 Dose: 50 mg Allergies Allergies Allergy/AdvReac Type Severity Reaction Status Date / Time cat dander [cats] Allergy Itchy Eyes Verified 04/25/22 00:28 dog dander [dogs] Allergy Itchy Eyes Verified 04/25/22 00:29 Assessment & Plan Assessment & Plan (1) Substance induced mood disorder: Status: Acute Code(s): F19.94 - Other psychoactive substance use, unspecified with psychoactive substance-induced mood disorder (2) Polysubstance abuse: Status: Acute Code(s): F19.10 - Other psychoactive substance abuse, uncomplicated (3) ADHD: Status: Acute Code(s): F90.9 - Attention-deficit hyperactivity disorder, unspecified type Plan 41 yo female, hx depression, ADHD, anxiety, obsessive qualities and questionable bipolar disorder. Hx of polysubstance abuse with detox in 2020 from Xanax, Adderall. Current OP regime is Xanax, Adderall, Paxil. Psychotic and labile on presentation, question of anand vs substance induced mood sx. Pt at this time, declines referrals and treatment. My treatment is [facility]. Plan: Observe Collateral contacts Continue Haldol prn Initiate Olanzapine Decrease Xanax-taper attempt Decrease Adderall-taper attempt MRI Head secondary to falls-pt refuses Labs-pt refuses Assessment and plan for 05/05/2022 Patient seen case reviewed with nursing staff. Patient seems preoccupied with the fact that she was somehow misunderstood railroaded and gas let it by her partner and her identity perhaps have been stolen. Somewhat expansive not overly depressed insight somewhat limited Patient has been started on Vryalar which should be helpful for bipolar states and mood instability would encourage Adderall taper 05/17/22 Continue current regime. Tolerating Vraylar. I spent minutes with the patient and/or on the patient floor today, greater than?50% of which was spent counseling/coordinating care. Patient educated on: therapeutic strategies Informed Consent: understands and further education needed Reason for contiued inpatient stay Substantial Risk for: rapid decompensation
[2022-05-17 18:00] VITALS: BP 108/78; PULSE 81; RESP 16; TEMP 36.4; O2SAT 98
[2022-05-17] MEDS: OLANZapine 10 MG TABLET PO (20:10)
[2022-05-18 06:00] VITALS: BP 113/56; PULSE 74; RESP 16; TEMP 36.3; O2SAT 97
[2022-05-18] MEDS: Mineral Oil/Petrolatum,White 106 GM Tube 1 APPL TOPICAL ×2 (08:30→21:04)
[2022-05-18] MEDS: ALPRAZolam 0.5 MG TABLET PO ×3 (08:30→21:02)
[2022-05-18] MEDS: Benztropine Mesylate 1 MG TABLET PO ×2 (08:30→21:02)
[2022-05-18] MEDS: Cariprazine HCl 3 MG CAPSULE 6 MG PO (08:30)
[2022-05-18] MEDS: Dextroamphetamine/Amphetamine XR 5 MG CAP.ER.24H 15 MG PO ×2 (08:30→14:07)
[2022-05-18] MEDS: lamoTRIgine 25 MG TABLET PO ×2 (08:30→21:02)
[2022-05-18 08:44] VITALS: BP 103/59; PULSE 69; RESP 16; TEMP 36.8; O2SAT 100
--- NOTE | 2022-05-18 09:14 | P.PNPSI_ITS ---
Subjective Subjective Date of Service: 05/18/22 Reason For Visit: Bipolar D/O w/psychosis; substance abuse-benzodiaz Interim History: Patient reports that she is doing well. She said she slept well last night. Patient is verbose and a little hyperactive but overall appropriate with peers and staff. Patient had challenging phone call with her mother however patient handled it with linnetteomb to which physician underwriter was happy to acknowledge. Mental Status Exam Mental Status Exam Patient Appearance: Appropriate Patient Orientation: Person, Place, Time and Situation Level of Consciousness: Alert Patient Behavior: Appropriate, Talkative, Cooperative and Good Eye Contact Mood Description: Appropriate Affect Description: Appropriate Patient Cognition Impaired: No Ability to Follow Directions: Good Speech Pattern: Spontaneous Speech Memory Description: Episodic Impaired Hallucinations: None Delusions: Not Present Thought Process: Intact and Goal Oriented Thought Content: positive for Intact, positive for Goal Oriented, positive for Suicidal Ideation (denies) and positive for Homicidal Ideation (denies-I would never harm my family or friends-I would defend people to the end.) Depressive Symptoms: Low Self Esteem Judgement: Good Diagnostics Vital Signs (24Hr): Vital Signs - 24 hr 05/17/22 18:00 05/18/22 06:00 05/18/22 08:44 Temperature 97.6 F 97.4 F 98.2 F Pulse Rate 81 74 69 Respiratory Rate 16 16 16 Blood Pressure 108/78 113/56 L 103/59 L Pulse Oximetry 98 97 100 Oxygen Delivery Method Room Air Room Air Medications Medications Current Medications Acetaminophen (Acetaminophen 325 Mg Tablet) 650 mg PO Q6H PRN PRN Reason: Headache/Pain Mild Scale (1-3) Last Admin: 05/07/22 17:32 Dose: 650 mg Al Hydroxide/Mg Hydroxide (Magnesium Hydrox/Alum Hydrox 30 Ml Oral.Susp) 30 ml PO Q6H PRN PRN Reason: Heartburn/Nausea Alprazolam (Alprazolam 0.5 Mg Tablet) 0.5 mg PO TID [facility] Last Admin: 05/18/22 08:30 Dose: 0.5 mg Amphetamine/Dextroamphetamine (Dextroamphetamine/Amphetamine Xr 5 Mg Cap.Er.24h) 15 mg PO 0900,1500 [facility] Last Admin: 05/18/22 08:30 Dose: 15 mg Benztropine Mesylate (Benztropine Mesylate 1 Mg Tablet) 1 mg PO BID [facility] Last Admin: 05/18/22 08:30 Dose: 1 mg Cariprazine (Cariprazine Hcl 3 Mg Capsule) 6 mg PO DAILY [facility] Last Admin: 05/18/22 08:30 Dose: 6 mg Hydroxyzine HCl (Hydroxyzine Hcl 25 Mg Tablet) 25 mg PO BEDTIME PRN PRN Reason: Anxiety Ibuprofen (Ibuprofen 800 Mg Tablet) 800 mg PO Q8H PRN PRN Reason: Pain, Mild (Pain Scale 1-3) Last Admin: 05/02/22 14:24 Dose: 800 mg Lamotrigine (Lamotrigine 25 Mg Tablet) 25 mg PO BID [facility] Last Admin: 05/18/22 08:30 Dose: 25 mg Lorazepam (Lorazepam 1 Mg Tablet) 1 mg PO Q4H PRN PRN Reason: agitation Last Admin: 05/17/22 20:10 Dose: 1 mg Magnesium Hydroxide (Milk Of Magnesia 30 Ml Oral.Susp) 30 ml PO DAILY PRN PRN Reason: Constipation Last Admin: 04/27/22 15:49 Dose: 30 ml Multi-Ingred Cream/Lotion/Oil/Oint (Mineral Oil/Petrolatum,White 106 Gm Tube) 1 appl TOPICAL TID [facility]; Protocol Last Admin: 05/18/22 08:30 Dose: 1 appl Pt Own Medication ( (Act Lozenge 1 Tab)) 1 tab PO BID PRN PRN Reason: Dry Mouth Last Admin: 05/16/22 20:19 Dose: 1 tab Non-Formulary Medication (Patient Own Medication) 1 each PO BID PRN PRN Reason: Dry Mouth Last Admin: 05/15/22 11:15 Dose: 1 each Olanzapine (Olanzapine 5 Mg Tablet) 5 mg PO Q4H PRN PRN Reason: lability, agitation Last Admin: 05/08/22 13:26 Dose: 5 mg Olanzapine (Olanzapine 10 Mg Tablet) 10 mg PO BEDTIME [facility] Last Admin: 05/17/22 20:10 Dose: 10 mg Saliva Substitute (Dry Mouth [place] 60 Ml [place]) 1 spray MUCOUS MEM Q2H PRN PRN Reason: Dry Mouth Last Admin: 05/15/22 11:15 Dose: 1 spray Trazodone HCl (Trazodone Hcl 50 Mg Tablet) 50 mg PO BEDTIME PRN PRN Reason: Insomnia Last Admin: 05/16/22 22:11 Dose: 50 mg Allergies Allergies Allergy/AdvReac Type Severity Reaction Status Date / Time cat dander [cats] Allergy Itchy Eyes Verified 04/25/22 00:28 dog dander [dogs] Allergy Itchy Eyes Verified 04/25/22 00:29 Assessment & Plan Assessment & Plan (1) Substance induced mood disorder: Status: Acute Code(s): F19.94 - Other psychoactive substance use, unspecified with psychoactive substance-induced mood disorder (2) Polysubstance abuse: Status: Acute Code(s): F19.10 - Other psychoactive substance abuse, uncomplicated (3) ADHD: Status: Acute Code(s): F90.9 - Attention-deficit hyperactivity disorder, unspecified type Plan 41 yo female, hx depression, ADHD, anxiety, obsessive qualities and questionable bipolar disorder. Hx of polysubstance abuse with detox in 2020 from Xanax, Adderall. Current OP regime is Xanax, Adderall, Paxil. Psychotic and labile on presentation, question of anand vs substance induced mood sx. Pt at this time, declines referrals and treatment. My treatment is [facility]. Plan: Observe Collateral contacts Continue Haldol prn Initiate Olanzapine Decrease Xanax-taper attempt Decrease Adderall-taper attempt MRI Head secondary to falls-pt refuses Labs-pt refuses Assessment and plan for 05/05/2022 Patient seen case reviewed with nursing staff. Patient seems preoccupied with the fact that she was somehow misunderstood railroaded and gas let it by her partner and her identity perhaps have been stolen. Somewhat expansive not overly depressed insight somewhat limited Patient has been started on Vryalar which should be helpful for bipolar states and mood instability would encourage Adderall taper 05/17/22 Continue current regime. Tolerating Vraylar. 05/18/22 continue current regimen I spent minutes with the patient and/or on the patient floor today, greater than?50% of which was spent counseling/coordinating care. Patient educated on: therapeutic strategies Informed Consent: understands Reason for contiued inpatient stay Substantial Risk for: med/psych decompensation
[2022-05-18] MEDS: LORazepam 1 MG TABLET PO ×2 (13:27→18:26)
[2022-05-18] MEDS: OLANZapine 10 MG TABLET PO (21:01)
[2022-05-18 21:13] VITALS: BP 116/65; PULSE 69; TEMP 36.2
[2022-05-19 06:00] VITALS: BP 110/56; PULSE 69; RESP 16; TEMP 36.3; O2SAT 99
[2022-05-19] MEDS: Benztropine Mesylate 1 MG TABLET PO ×2 (08:18→20:58)
[2022-05-19] MEDS: lamoTRIgine 25 MG TABLET PO ×2 (08:18→20:58)
[2022-05-19] MEDS: ALPRAZolam 0.5 MG TABLET PO ×3 (08:18→21:39)
[2022-05-19] MEDS: Cariprazine HCl 3 MG CAPSULE 6 MG PO (08:18)
[2022-05-19] MEDS: Dextroamphetamine/Amphetamine XR 5 MG CAP.ER.24H 15 MG PO ×2 (08:18→14:23)
[2022-05-19] MEDS: Mineral Oil/Petrolatum,White 106 GM Tube 1 APPL TOPICAL ×2 (08:19→14:29)
[2022-05-19] MEDS: LORazepam 1 MG TABLET PO ×2 (12:06→19:31)
--- NOTE | 2022-05-19 16:10 | HO.PSYCHPN ---
Subjective Subjective Date of Service: 05/19/22 Reason For Visit: Bipolar D/O w/psychosis; substance abuse-benzodiaz Interim History: Patient asked about Adderall change and agreed to discuss with primary team. Otherwise no changes Mental Status Exam Mental Status Exam Patient Appearance: Appropriate Patient Orientation: Person, Place, Time and Situation Level of Consciousness: Alert Patient Behavior: Appropriate, Talkative, Cooperative and Good Eye Contact Mood Description: Appropriate Affect Description: Appropriate Patient Cognition Impaired: No Ability to Follow Directions: Good Speech Pattern: Spontaneous Speech Memory Description: Episodic Impaired Hallucinations: None Delusions: Not Present Thought Process: Intact and Goal Oriented Thought Content: positive for Intact, positive for Goal Oriented, positive for Suicidal Ideation (denies) and positive for Homicidal Ideation (denies-I would never harm my family or friends-I would defend people to the end.) Depressive Symptoms: Low Self Esteem Judgement: Good Diagnostics Vital Signs (24Hr): Vital Signs - 24 hr 05/18/22 21:13 05/19/22 06:00 Temperature 97.1 F 97.4 F Pulse Rate 69 69 Respiratory Rate 16 Blood Pressure 116/65 110/56 L Pulse Oximetry 99 Medications Medications Current Medications Acetaminophen (Acetaminophen 325 Mg Tablet) 650 mg PO Q6H PRN PRN Reason: Headache/Pain Mild Scale (1-3) Last Admin: 05/07/22 17:32 Dose: 650 mg Al Hydroxide/Mg Hydroxide (Magnesium Hydrox/Alum Hydrox 30 Ml Oral.Susp) 30 ml PO Q6H PRN PRN Reason: Heartburn/Nausea Amphetamine/Dextroamphetamine (Dextroamphetamine/Amphetamine Xr 5 Mg Cap.Er.24h) 15 mg PO 0900,1500 [facility] Last Admin: 05/19/22 14:23 Dose: 15 mg Benztropine Mesylate (Benztropine Mesylate 1 Mg Tablet) 1 mg PO BID [facility] Last Admin: 05/19/22 08:18 Dose: 1 mg Cariprazine (Cariprazine Hcl 3 Mg Capsule) 6 mg PO DAILY [facility] Last Admin: 05/19/22 08:18 Dose: 6 mg Hydroxyzine HCl (Hydroxyzine Hcl 25 Mg Tablet) 25 mg PO BEDTIME PRN PRN Reason: Anxiety Ibuprofen (Ibuprofen 800 Mg Tablet) 800 mg PO Q8H PRN PRN Reason: Pain, Mild (Pain Scale 1-3) Last Admin: 05/02/22 14:24 Dose: 800 mg Lamotrigine (Lamotrigine 25 Mg Tablet) 25 mg PO BID [facility] Last Admin: 05/19/22 08:18 Dose: 25 mg Lorazepam (Lorazepam 1 Mg Tablet) 1 mg PO Q4H PRN PRN Reason: agitation Last Admin: 05/19/22 12:06 Dose: 1 mg Magnesium Hydroxide (Milk Of Magnesia 30 Ml Oral.Susp) 30 ml PO DAILY PRN PRN Reason: Constipation Last Admin: 04/27/22 15:49 Dose: 30 ml Multi-Ingred Cream/Lotion/Oil/Oint (Mineral Oil/Petrolatum,White 106 Gm Tube) 1 appl TOPICAL TID [facility]; Protocol Last Admin: 05/19/22 14:29 Dose: 1 appl Pt Own Medication ( (Act Lozenge 1 Tab)) 1 tab PO BID PRN PRN Reason: Dry Mouth Last Admin: 05/16/22 20:19 Dose: 1 tab Non-Formulary Medication (Patient Own Medication) 1 each PO BID PRN PRN Reason: Dry Mouth Last Admin: 05/15/22 11:15 Dose: 1 each Olanzapine (Olanzapine 5 Mg Tablet) 5 mg PO Q4H PRN PRN Reason: lability, agitation Last Admin: 05/08/22 13:26 Dose: 5 mg Olanzapine (Olanzapine 10 Mg Tablet) 10 mg PO BEDTIME [facility] Last Admin: 05/18/22 21:01 Dose: 10 mg Saliva Substitute (Dry Mouth [place] 60 Ml [place]) 1 spray MUCOUS MEM Q2H PRN PRN Reason: Dry Mouth Last Admin: 05/15/22 11:15 Dose: 1 spray Trazodone HCl (Trazodone Hcl 50 Mg Tablet) 50 mg PO BEDTIME PRN PRN Reason: Insomnia Last Admin: 05/16/22 22:11 Dose: 50 mg Allergies Allergies Allergy/AdvReac Type Severity Reaction Status Date / Time cat dander [cats] Allergy Itchy Eyes Verified 04/25/22 00:28 dog dander [dogs] Allergy Itchy Eyes Verified 04/25/22 00:29 Assessment & Plan Assessment & Plan (1) Substance induced mood disorder: Status: Acute Code(s): F19.94 - Other psychoactive substance use, unspecified with psychoactive substance-induced mood disorder (2) Polysubstance abuse: Status: Acute Code(s): F19.10 - Other psychoactive substance abuse, uncomplicated (3) ADHD: Status: Acute Code(s): F90.9 - Attention-deficit hyperactivity disorder, unspecified type Plan 41 yo female, hx depression, ADHD, anxiety, obsessive qualities and questionable bipolar disorder. Hx of polysubstance abuse with detox in 2020 from Xanax, Adderall. Current OP regime is Xanax, Adderall, Paxil. Psychotic and labile on presentation, question of anand vs substance induced mood sx. Pt at this time, declines referrals and treatment. My treatment is [facility]. Plan: Observe Collateral contacts Continue Haldol prn Initiate Olanzapine Decrease Xanax-taper attempt Decrease Adderall-taper attempt MRI Head secondary to falls-pt refuses Labs-pt refuses Assessment and plan for 05/05/2022 Patient seen case reviewed with nursing staff. Patient seems preoccupied with the fact that she was somehow misunderstood railroaded and gas let it by her partner and her identity perhaps have been stolen. Somewhat expansive not overly depressed insight somewhat limited Patient has been started on Vryalar which should be helpful for bipolar states and mood instability would encourage Adderall taper 05/17/22 Continue current regime. Tolerating Vraylar. 05/18/22 continue current regimen 05/19/22 continue current regimen I spent minutes with the patient and/or on the patient floor today, greater than?50% of which was spent counseling/coordinating care. Patient educated on: medication risk/benefits Informed Consent: understands Reason for contiued inpatient stay Substantial Risk for: med/psych decompensation
[2022-05-19 18:00] VITALS: BP 108/68; PULSE 68; RESP 14; TEMP 36.1; O2SAT 99
[2022-05-19] MEDS: OLANZapine 10 MG TABLET PO (20:58)
[2022-05-20 06:00] VITALS: BP 122/61; PULSE 60; RESP 16; TEMP 36.4; O2SAT 98
[2022-05-20] MEDS: Dextroamphetamine/Amphetamine XR 5 MG CAP.ER.24H 15 MG PO ×2 (08:19→14:13)
[2022-05-20] MEDS: Cariprazine HCl 3 MG CAPSULE 6 MG PO (08:19)
[2022-05-20] MEDS: Benztropine Mesylate 1 MG TABLET PO ×2 (08:19→21:48)
[2022-05-20] MEDS: ALPRAZolam 0.5 MG TABLET PO ×3 (08:19→21:48)
[2022-05-20] MEDS: lamoTRIgine 25 MG TABLET PO (08:19)
[2022-05-20] MEDS: Mineral Oil/Petrolatum,White 106 GM Tube 1 APPL TOPICAL ×2 (08:22→18:19)
[2022-05-20] MEDS: Acetaminophen 325 MG TABLET 650 MG PO (09:16)
[2022-05-20] MEDS: LORazepam 1 MG TABLET PO ×3 (09:23→21:53)
--- NOTE | 2022-05-20 15:54 | P.PNPSI_ITS ---
Subjective Subjective Date of Service: 05/20/22 Reason For Visit: Bipolar D/O w/psychosis; substance abuse-benzodiaz Subjective Notes: Conditional Voluntary Healthcare Proxy: No Guardianship: No Medical Problems Affecting Mental Status: No Interim History: Continues to improve. Discussed changes in Adderall, Olanzapine, Lamictal. Reports sleep is appropriate Organized, focused and moving toward discharge. Medication Compliance: Yes Side effects from medications: No Attending Groups: Yes Review of Systems Acute medical concerns: No Medical Review of Systems: unchanged Review of Systems Psychiatric: Reports anxiety, Reports homicidal ideation (denies) and Reports suicidal ideation (denies) Mental Status Exam Mental Status Exam Patient Appearance: Appropriate Patient Orientation: Person, Place, Time and Situation Level of Consciousness: Alert Patient Behavior: Appropriate, Talkative, Cooperative and Good Eye Contact Mood Description: Apprehensive Affect Description: Apprehensive Patient Cognition Impaired: No Ability to Follow Directions: Good Speech Pattern: Spontaneous Speech Memory Description: Intact Hallucinations: None Delusions: Not Present Perceptual Disturbances: Depersonalization and Derealization Thought Process: Intact Thought Content: positive for Goal Oriented Depressive Symptoms: Increased Anxiety and Low Self Esteem Judgement: Good Diagnostics Vital Signs (24Hr): Vital Signs - 24 hr 05/19/22 18:00 05/20/22 06:00 Temperature 97 F 97.5 F Pulse Rate 68 60 Respiratory Rate 14 16 Blood Pressure 108/68 122/61 Pulse Oximetry 99 98 Oxygen Delivery Method Room Air Medications Medications Current Medications Acetaminophen (Acetaminophen 325 Mg Tablet) 650 mg PO Q6H PRN PRN Reason: Headache/Pain Mild Scale (1-3) Last Admin: 05/20/22 09:16 Dose: 650 mg Al Hydroxide/Mg Hydroxide (Magnesium Hydrox/Alum Hydrox 30 Ml Oral.Susp) 30 ml PO Q6H PRN PRN Reason: Heartburn/Nausea Alprazolam (Alprazolam 0.5 Mg Tablet) 0.5 mg PO TID [facility] Last Admin: 05/20/22 14:13 Dose: 0.5 mg Amphetamine/Dextroamphetamine (Dextroamphetamine/Amphetamine Xr 10 Mg Cap.Er.24h) 30 mg PO DAILY [facility] Benztropine Mesylate (Benztropine Mesylate 1 Mg Tablet) 1 mg PO BID [facility] Last Admin: 05/20/22 08:19 Dose: 1 mg Cariprazine (Cariprazine Hcl 3 Mg Capsule) 6 mg PO DAILY [facility] Last Admin: 05/20/22 08:19 Dose: 6 mg Hydroxyzine HCl (Hydroxyzine Hcl 25 Mg Tablet) 25 mg PO BEDTIME PRN PRN Reason: Anxiety Ibuprofen (Ibuprofen 800 Mg Tablet) 800 mg PO Q8H PRN PRN Reason: Pain, Mild (Pain Scale 1-3) Last Admin: 05/02/22 14:24 Dose: 800 mg Lamotrigine (Lamotrigine 25 Mg Tablet) 50 mg PO BID [facility] Lorazepam (Lorazepam 1 Mg Tablet) 1 mg PO Q4H PRN PRN Reason: agitation Last Admin: 05/20/22 13:58 Dose: 1 mg Magnesium Hydroxide (Milk Of Magnesia 30 Ml Oral.Susp) 30 ml PO DAILY PRN PRN Reason: Constipation Last Admin: 04/27/22 15:49 Dose: 30 ml Multi-Ingred Cream/Lotion/Oil/Oint (Mineral Oil/Petrolatum,White 106 Gm Tube) 1 appl TOPICAL TID [facility]; Protocol Last Admin: 05/20/22 08:22 Dose: 1 appl Pt Own Medication ( (Act Lozenge 1 Tab)) 1 tab PO BID PRN PRN Reason: Dry Mouth Last Admin: 05/16/22 20:19 Dose: 1 tab Non-Formulary Medication (Patient Own Medication) 1 each PO BID PRN PRN Reason: Dry Mouth Last Admin: 05/15/22 11:15 Dose: 1 each Olanzapine (Olanzapine 5 Mg Tablet) 5 mg PO Q4H PRN PRN Reason: lability, agitation Last Admin: 05/08/22 13:26 Dose: 5 mg Olanzapine (Olanzapine 5 Mg Tablet) 5 mg PO BEDTIME [facility] Saliva Substitute (Dry Mouth [place] 60 Ml [place]) 1 spray MUCOUS MEM Q2H PRN PRN Reason: Dry Mouth Last Admin: 05/15/22 11:15 Dose: 1 spray Trazodone HCl (Trazodone Hcl 50 Mg Tablet) 50 mg PO BEDTIME PRN PRN Reason: Insomnia Last Admin: 05/16/22 22:11 Dose: 50 mg Allergies Allergies Allergy/AdvReac Type Severity Reaction Status Date / Time cat dander [cats] Allergy Itchy Eyes Verified 04/25/22 00:28 dog dander [dogs] Allergy Itchy Eyes Verified 04/25/22 00:29 Assessment & Plan Assessment & Plan (1) Substance induced mood disorder: Status: Acute Code(s): F19.94 - Other psychoactive substance use, unspecified with psychoactive substance-induced mood disorder (2) Polysubstance abuse: Status: Acute Code(s): F19.10 - Other psychoactive substance abuse, uncomplicated (3) ADHD: Status: Acute Code(s): F90.9 - Attention-deficit hyperactivity disorder, unspecified type Plan 41 yo female, hx depression, ADHD, anxiety, obsessive qualities and questionable bipolar disorder. Hx of polysubstance abuse with detox in 2020 from Xanax, Adderall. Current OP regime is Xanax, Adderall, Paxil. Psychotic and labile on presentation, question of anand vs substance induced mood sx. Pt at this time, declines referrals and treatment. My treatment is [facility]. Plan: Observe Collateral contacts Continue Haldol prn Initiate Olanzapine Decrease Xanax-taper attempt Decrease Adderall-taper attempt MRI Head secondary to falls-pt refuses Labs-pt refuses Assessment and plan for 05/05/2022 Patient seen case reviewed with nursing staff. Patient seems preoccupied with the fact that she was somehow misunderstood railroaded and gas let it by her partner and her identity perhaps have been stolen. Somewhat expansive not overly depressed insight somewhat limited Patient has been started on Vryalar which should be helpful for bipolar states and mood instability would encourage Adderall taper 05/17/22 Continue current regime. Tolerating Vraylar. 05/18/22 continue current regimen 05/19/22 continue current regimen 05/20/22 Increase Adderall XR to 30 mg daily Decrease Olanzapine to 5 mg hs Increase Lamictal to 50 mg bid I spent minutes with the patient and/or on the patient floor today, greater than?50% of which was spent counseling/coordinating care. Patient educated on: therapeutic strategies Informed Consent: understands Reason for contiued inpatient stay Substantial Risk for: rapid decompensation
[2022-05-20 18:00] VITALS: BP 122/72; PULSE 78; RESP 15; TEMP 36.2; O2SAT 100
[2022-05-20] MEDS: OLANZapine 5 MG TABLET PO (21:48)
[2022-05-20] MEDS: lamoTRIgine 25 MG TABLET 50 MG PO (21:49)
[2022-05-20] MEDS: traZODone HCL 50 MG TABLET PO (23:14)
[2022-05-21 06:00] VITALS: BP 114/62; PULSE 76; RESP 16; TEMP 35.8; O2SAT 99
[2022-05-21] MEDS: Benztropine Mesylate 1 MG TABLET PO ×2 (09:10→20:55)
[2022-05-21] MEDS: ALPRAZolam 0.5 MG TABLET PO ×3 (09:11→20:55)
[2022-05-21] MEDS: Dextroamphetamine/Amphetamine XR 10 MG CAP.ER.24H 30 MG PO (09:11)
[2022-05-21] MEDS: lamoTRIgine 25 MG TABLET 50 MG PO ×2 (09:11→20:54)
[2022-05-21] MEDS: Cariprazine HCl 3 MG CAPSULE 6 MG PO (09:12)
[2022-05-21] MEDS: Mineral Oil/Petrolatum,White 106 GM Tube 1 APPL TOPICAL ×2 (09:47→14:28)
--- NOTE | 2022-05-21 12:31 | P.PNPSI_ITS ---
Subjective Subjective Date of Service: 05/21/22 Reason For Visit: Bipolar D/O w/psychosis; substance abuse-benzodiaz Subjective Notes: Conditional Voluntary Healthcare Proxy: No Guardianship: No Medical Problems Affecting Mental Status: No Interim History: Reports benefit from increase in Adderall dosage-by hx 60 mg ER daily. Jackie believes 45 will be enough-cites being able to read, focus more on GED preparation and feels more grounded. Discussed return to work, continues to discuss housing options-will interview with [facility] today for added services as well. Medication Compliance: Yes Side effects from medications: No Attending Groups: Yes Review of Systems Acute medical concerns: No Medical Review of Systems: unchanged Review of Systems Psychiatric: Reports anxiety, Reports homicidal ideation (denies) and Reports suicidal ideation (denies) Mental Status Exam Mental Status Exam Patient Appearance: Appropriate Patient Orientation: Person, Place, Time and Situation Level of Consciousness: Alert Patient Behavior: Appropriate, Talkative, Cooperative and Good Eye Contact Mood Description: Apprehensive Affect Description: Apprehensive Patient Cognition Impaired: No Ability to Follow Directions: Good Speech Pattern: Spontaneous Speech Memory Description: Intact Hallucinations: None Delusions: Not Present Perceptual Disturbances: Depersonalization and Derealization Thought Process: Intact Thought Content: positive for Goal Oriented Depressive Symptoms: Increased Anxiety and Low Self Esteem Judgement: Good Diagnostics Vital Signs (24Hr): Vital Signs - 24 hr 05/20/22 18:00 05/21/22 06:00 Temperature 97.2 F 96.4 F L Pulse Rate 78 76 Respiratory Rate 15 16 Blood Pressure 122/72 114/62 Pulse Oximetry 100 99 Oxygen Delivery Method Room Air Room Air Medications Medications Current Medications Acetaminophen (Acetaminophen 325 Mg Tablet) 650 mg PO Q6H PRN PRN Reason: Headache/Pain Mild Scale (1-3) Last Admin: 05/20/22 09:16 Dose: 650 mg Al Hydroxide/Mg Hydroxide (Magnesium Hydrox/Alum Hydrox 30 Ml Oral.Susp) 30 ml PO Q6H PRN PRN Reason: Heartburn/Nausea Alprazolam (Alprazolam 0.5 Mg Tablet) 0.5 mg PO TID [facility] Last Admin: 05/21/22 09:11 Dose: 0.5 mg Amphetamine/Dextroamphetamine (Dextroamphetamine/Amphetamine Xr 10 Mg Cap.Er.24h) 30 mg PO DAILY [facility] Last Admin: 05/21/22 09:11 Dose: 30 mg Bacitracin (Bacitracin Oint 14 Gm Tube) 1 appl TOPICAL BID [facility]; Protocol Benztropine Mesylate (Benztropine Mesylate 1 Mg Tablet) 1 mg PO BID [facility] Last Admin: 05/21/22 09:10 Dose: 1 mg Cariprazine (Cariprazine Hcl 3 Mg Capsule) 6 mg PO DAILY [facility] Last Admin: 05/21/22 09:12 Dose: 6 mg Hydroxyzine HCl (Hydroxyzine Hcl 25 Mg Tablet) 25 mg PO BEDTIME PRN PRN Reason: Anxiety Ibuprofen (Ibuprofen 800 Mg Tablet) 800 mg PO Q8H PRN PRN Reason: Pain, Mild (Pain Scale 1-3) Last Admin: 05/02/22 14:24 Dose: 800 mg Lamotrigine (Lamotrigine 25 Mg Tablet) 50 mg PO BID [facility] Last Admin: 05/21/22 09:11 Dose: 50 mg Lorazepam (Lorazepam 1 Mg Tablet) 1 mg PO Q4H PRN PRN Reason: agitation Last Admin: 05/20/22 21:53 Dose: 1 mg Magnesium Hydroxide (Milk Of Magnesia 30 Ml Oral.Susp) 30 ml PO DAILY PRN PRN Reason: Constipation Last Admin: 04/27/22 15:49 Dose: 30 ml Multi-Ingred Cream/Lotion/Oil/Oint (Mineral Oil/Petrolatum,White 106 Gm Tube) 1 appl TOPICAL TID [facility]; Protocol Last Admin: 05/21/22 09:47 Dose: 1 appl Pt Own Medication ( (Act Lozenge 1 Tab)) 1 tab PO BID PRN PRN Reason: Dry Mouth Last Admin: 05/16/22 20:19 Dose: 1 tab Non-Formulary Medication (Patient Own Medication) 1 each PO BID PRN PRN Reason: Dry Mouth Last Admin: 05/15/22 11:15 Dose: 1 each Olanzapine (Olanzapine 5 Mg Tablet) 5 mg PO Q4H PRN PRN Reason: lability, agitation Last Admin: 05/08/22 13:26 Dose: 5 mg Olanzapine (Olanzapine 5 Mg Tablet) 5 mg PO BEDTIME [facility] Last Admin: 05/20/22 21:48 Dose: 5 mg Saliva Substitute (Dry Mouth Venus 60 Ml Venus) 1 spray MUCOUS MEM Q2H PRN PRN Reason: Dry Mouth Last Admin: 05/15/22 11:15 Dose: 1 spray Trazodone HCl (Trazodone Hcl 50 Mg Tablet) 50 mg PO BEDTIME PRN PRN Reason: Insomnia Last Admin: 05/20/22 23:14 Dose: 50 mg Allergies Allergies Allergy/AdvReac Type Severity Reaction Status Date / Time cat dander [cats] Allergy Itchy Eyes Verified 04/25/22 00:28 dog dander [dogs] Allergy Itchy Eyes Verified 04/25/22 00:29 Assessment & Plan Assessment & Plan (1) Substance induced mood disorder: Status: Acute Code(s): F19.94 - Other psychoactive substance use, unspecified with psychoactive substance-induced mood disorder (2) Polysubstance abuse: Status: Acute Code(s): F19.10 - Other psychoactive substance abuse, uncomplicated (3) ADHD: Status: Acute Code(s): F90.9 - Attention-deficit hyperactivity disorder, unspecified type Plan 41 yo female, hx depression, ADHD, anxiety, obsessive qualities and questionable bipolar disorder. Hx of polysubstance abuse with detox in 2020 from Xanax, Adderall. Current OP regime is Xanax, Adderall, Paxil. Psychotic and labile on presentation, question of anand vs substance induced mood sx. Pt at this time, declines referrals and treatment. My treatment is [facility]. Plan: Observe Collateral contacts Continue Haldol prn Initiate Olanzapine Decrease Xanax-taper attempt Decrease Adderall-taper attempt MRI Head secondary to falls-pt refuses Labs-pt refuses Assessment and plan for 05/05/2022 Patient seen case reviewed with nursing staff. Patient seems preoccupied with the fact that she was somehow misunderstood railroaded and gas let it by her partner and her identity perhaps have been stolen. Somewhat expansive not overly depressed insight somewhat limited Patient has been started on Vryalar which should be helpful for bipolar states and mood instability would encourage Adderall taper 05/17/22 Continue current regime. Tolerating Vraylar. 05/18/22 continue current regimen 05/19/22 continue current regimen 05/21/22 Increase Adderall XR to 30 mg a.m. 15 mg p.m. I spent minutes with the patient and/or on the patient floor today, greater than?50% of which was spent counseling/coordinating care. Patient educated on: therapeutic strategies Informed Consent: understands and further education needed Reason for contiued inpatient stay Substantial Risk for: inability to function and rapid decompensation
[2022-05-21 17:22] VITALS: BP 120/69; PULSE 79; RESP 16; TEMP 36.7; O2SAT 99
[2022-05-21] MEDS: LORazepam 1 MG TABLET PO (18:11)
[2022-05-21] MEDS: OLANZapine 5 MG TABLET PO (20:55)
[2022-05-21] MEDS: Bacitracin Oint 14 GM TUBE 1 APPL TOPICAL (21:46)
[2022-05-21] MEDS: traZODone HCL 50 MG TABLET PO (22:12)
[2022-05-22 08:09] VITALS: BP 110/58; PULSE 72; TEMP 36.2
[2022-05-22] MEDS: Benztropine Mesylate 1 MG TABLET PO ×2 (08:59→20:08)
[2022-05-22] MEDS: Dextroamphetamine/Amphetamine XR 10 MG CAP.ER.24H 30 MG PO (08:59)
[2022-05-22] MEDS: Cariprazine HCl 3 MG CAPSULE 6 MG PO (08:59)
[2022-05-22] MEDS: lamoTRIgine 25 MG TABLET 50 MG PO ×2 (08:59→20:08)
[2022-05-22] MEDS: ALPRAZolam 0.5 MG TABLET PO ×3 (08:59→20:08)
[2022-05-22] MEDS: LORazepam 1 MG TABLET PO (11:42)
--- NOTE | 2022-05-22 13:16 | HO.PSYCHPN ---
Subjective Subjective Date of Service: 05/22/22 Reason For Visit: Bipolar D/O w/psychosis; substance abuse-benzodiaz Subjective Notes: Conditional Voluntary Healthcare Proxy: No Guardianship: No Medical Problems Affecting Mental Status: No Interim History: Tolerating regime. Adderall XR 15 mg 1300 to begin today. Pt asks if tw can call her mother, Veena Cortez to discuss the possibility of pt living with her. Messages left x . Planning discharge for 05/24/22. Housing continues to be a significant issue. Medication Compliance: Yes Side effects from medications: No Attending Groups: Yes Review of Systems Acute medical concerns: No Medical Review of Systems: unchanged Review of Systems Reports behavioral changes Psychiatric: Reports anxiety, Reports behavioral changes, Reports anhedonia, Reports homicidal ideation (denies) and Reports suicidal ideation (denies) Mental Status Exam Mental Status Exam Patient Appearance: Appropriate Patient Orientation: Person, Place, Time and Situation Level of Consciousness: Alert Patient Behavior: Talkative and Good Eye Contact Mood Description: Apprehensive Affect Description: Apprehensive Ability to Follow Directions: Good Speech Pattern: Spontaneous Speech Memory Description: Intact Hallucinations: None Delusions: Not Present Perceptual Disturbances: Depersonalization Thought Process: Goal Oriented Thought Content: positive for Goal Oriented Depressive Symptoms: Increased Anxiety and Low Self Esteem Judgement: Good Diagnostics Vital Signs (24Hr): Vital Signs - 24 hr 05/21/22 17:22 05/22/22 08:09 Temperature 98.1 F 97.2 F Pulse Rate 79 72 Respiratory Rate 16 Blood Pressure 120/69 110/58 L Pulse Oximetry 99 Oxygen Delivery Method Room Air Medications Medications Current Medications Acetaminophen (Acetaminophen 325 Mg Tablet) 650 mg PO Q6H PRN PRN Reason: Headache/Pain Mild Scale (1-3) Last Admin: 05/20/22 09:16 Dose: 650 mg Al Hydroxide/Mg Hydroxide (Magnesium Hydrox/Alum Hydrox 30 Ml Oral.Susp) 30 ml PO Q6H PRN PRN Reason: Heartburn/Nausea Alprazolam (Alprazolam 0.5 Mg Tablet) 0.5 mg PO TID [facility] Last Admin: 05/22/22 08:59 Dose: 0.5 mg Amphetamine/Dextroamphetamine (Dextroamphetamine/Amphetamine Xr 10 Mg Cap.Er.24h) 30 mg PO DAILY [facility] Last Admin: 07/13/22 08:59 Dose: 30 mg Amphetamine/Dextroamphetamine (Dextroamphetamine/Amphetamine Xr 5 Mg Cap.Er.24h) 15 mg PO 1300 [facility] Bacitracin (Bacitracin Oint 14 Gm Tube) 1 appl TOPICAL BID [facility]; Protocol Last Admin: 05/22/22 11:13 Dose: Not Given Benztropine Mesylate (Benztropine Mesylate 1 Mg Tablet) 1 mg PO BID [facility] Last Admin: 05/22/22 08:59 Dose: 1 mg Cariprazine (Cariprazine Hcl 3 Mg Capsule) 6 mg PO DAILY [facility] Last Admin: 05/22/22 08:59 Dose: 6 mg Hydroxyzine HCl (Hydroxyzine Hcl 25 Mg Tablet) 25 mg PO BEDTIME PRN PRN Reason: Anxiety Ibuprofen (Ibuprofen 800 Mg Tablet) 800 mg PO Q8H PRN PRN Reason: Pain, Mild (Pain Scale 1-3) Last Admin: 05/02/22 14:24 Dose: 800 mg Lamotrigine (Lamotrigine 25 Mg Tablet) 50 mg PO BID [facility] Last Admin: 05/22/22 08:59 Dose: 50 mg Lorazepam (Lorazepam 1 Mg Tablet) 1 mg PO Q4H PRN PRN Reason: agitation Last Admin: 05/22/22 11:42 Dose: 1 mg Magnesium Hydroxide (Milk Of Magnesia 30 Ml Oral.Susp) 30 ml PO DAILY PRN PRN Reason: Constipation Last Admin: 04/27/22 15:49 Dose: 30 ml Multi-Ingred Cream/Lotion/Oil/Oint (Mineral Oil/Petrolatum,White 106 Gm Tube) 1 appl TOPICAL TID [facility]; Protocol Last Admin: 05/22/22 11:13 Dose: Not Given Pt Own Medication ( (Act Lozenge 1 Tab)) 1 tab PO BID PRN PRN Reason: Dry Mouth Last Admin: 05/16/22 20:19 Dose: 1 tab Non-Formulary Medication (Patient Own Medication) 1 each PO BID PRN PRN Reason: Dry Mouth Last Admin: 05/15/22 11:15 Dose: 1 each Olanzapine (Olanzapine 5 Mg Tablet) 5 mg PO Q4H PRN PRN Reason: lability, agitation Last Admin: 05/08/22 13:26 Dose: 5 mg Olanzapine (Olanzapine 5 Mg Tablet) 5 mg PO BEDTIME [facility] Last Admin: 05/21/22 20:55 Dose: 5 mg Saliva Substitute (Dry Mouth Carmen 60 Ml Carmen) 1 spray MUCOUS MEM Q2H PRN PRN Reason: Dry Mouth Last Admin: 05/15/22 11:15 Dose: 1 spray Trazodone HCl (Trazodone Hcl 50 Mg Tablet) 50 mg PO BEDTIME PRN PRN Reason: Insomnia Last Admin: 05/21/22 22:12 Dose: 50 mg Allergies Allergies Allergy/AdvReac Type Severity Reaction Status Date / Time cat dander [cats] Allergy Itchy Eyes Verified 04/25/22 00:28 dog dander [dogs] Allergy Itchy Eyes Verified 04/25/22 00:29 Assessment & Plan Assessment & Plan (1) Substance induced mood disorder: Status: Acute Code(s): F19.94 - Other psychoactive substance use, unspecified with psychoactive substance-induced mood disorder (2) Polysubstance abuse: Status: Acute Code(s): F19.10 - Other psychoactive substance abuse, uncomplicated (3) ADHD: Status: Acute Code(s): F90.9 - Attention-deficit hyperactivity disorder, unspecified type Plan 41 yo female, hx depression, ADHD, anxiety, obsessive qualities and questionable bipolar disorder. Hx of polysubstance abuse with detox in 2020 from Xanax, Adderall. Current OP regime is Xanax, Adderall, Paxil. Psychotic and labile on presentation, question of anand vs substance induced mood sx. Pt at this time, declines referrals and treatment. My [facility]. Plan: Observe Collateral contacts Continue Haldol prn Initiate Olanzapine Decrease Xanax-taper attempt Decrease Adderall-taper attempt MRI Head secondary to falls-pt refuses Labs-pt refuses Assessment and plan for 05/05/2022 Patient seen case reviewed with nursing staff. Patient seems preoccupied with the fact that she was somehow misunderstood railroaded and gas let it by her partner and her identity perhaps have been stolen. Somewhat expansive not overly depressed insight somewhat limited Patient has been started on Vryalar which should be helpful for bipolar states and mood instability would encourage Adderall taper 05/17/22 Continue current regime. Tolerating Vraylar. 05/18/22 continue current regimen 05/19/22 continue current regimen 05/20/22 Increase Adderall XR to 30 mg daily Decrease Olanzapine to 5 mg hs Increase Lamictal to 50 mg bid 05/22/22 Add Adderall XR 15 mg as pt's afternoon dosage. I spent minutes with the patient and/or on the patient floor today, greater than?50% of which was spent counseling/coordinating care. Patient educated on: medication risk/benefits and therapeutic strategies Informed Consent: understands Reason for contiued inpatient stay Substantial Risk for: inability to function and rapid decompensation
[2022-05-22] MEDS: Dextroamphetamine/Amphetamine XR 5 MG CAP.ER.24H 15 MG PO (13:49)
[2022-05-22 17:24] VITALS: BP 119/70; PULSE 79; RESP 18; TEMP 36.8; O2SAT 98
[2022-05-22] MEDS: OLANZapine 5 MG TABLET PO (20:08)
[2022-05-22] MEDS: Mineral Oil/Petrolatum,White 106 GM Tube 1 APPL TOPICAL (20:08)
[2022-05-22] MEDS: Bacitracin Oint 14 GM TUBE 1 APPL TOPICAL (20:43)
[2022-05-22] MEDS: traZODone HCL 50 MG TABLET PO (22:07)
[2022-05-23 07:05] VITALS: BP 129/62; PULSE 90; RESP 16; TEMP 36.6; O2SAT 97
[2022-05-23] MEDS: ALPRAZolam 0.5 MG TABLET PO (08:35)
[2022-05-23] MEDS: Cariprazine HCl 3 MG CAPSULE 6 MG PO (08:35)
[2022-05-23] MEDS: Benztropine Mesylate 1 MG TABLET PO ×2 (08:35→20:09)
[2022-05-23] MEDS: lamoTRIgine 25 MG TABLET 50 MG PO ×2 (08:35→20:09)
[2022-05-23] MEDS: Dextroamphetamine/Amphetamine XR 10 MG CAP.ER.24H 30 MG PO (08:35)
[2022-05-23] MEDS: Mineral Oil/Petrolatum,White 106 GM Tube 1 APPL TOPICAL (10:53)
[2022-05-23] MEDS: ALPRAZolam 0.5 MG TABLET 1 MG PO ×2 (13:31→20:20)
[2022-05-23] MEDS: Dextroamphetamine/Amphetamine XR 5 MG CAP.ER.24H 15 MG PO (13:31)
--- NOTE | 2022-05-23 17:56 | P.PNPSI_ITS ---
Subjective Subjective Date of Service: 05/23/22 Reason For Visit: Bipolar D/O w/psychosis; substance abuse-benzodiaz Subjective Notes: Conditional Voluntary Healthcare Proxy: No Guardianship: No Medical Problems Affecting Mental Status: No Interim History: Team reports pt making statements about SI if made to go to [facility]. Met with pt to review. Reviewed what resources are available. Pt declines resource in [place], prefers to stay in the local area as she is informed that mother has a new diagnosis of atrial fibrillation, and may need hospitalization in the near future. Pt wants to remain close to her mom and niece. Considering [facility] and [facility], also considering staying with her father and with friends, Brenda and Jt.Requests re-titration of Xanax to pre admit dosing. Argumentative on the phone several times today with partner who is caring for the children. Pt was asked if she wanted assist in returning to [facility] and we would ask D[facility] to remove the children-she declined this option. Message left for pt's nurse animal care technician, Barbara [phone] for updates. Medication Compliance: Yes Side effects from medications: No Attending Groups: Yes Review of Systems Acute medical concerns: No Medical Review of Systems: unchanged Review of Systems Psychiatric: Reports anxiety, Reports homicidal ideation (denies) and Reports suicidal ideation (denies) Mental Status Exam Mental Status Exam Patient Appearance: Appropriate Patient Orientation: Person, Place, Time and Situation Level of Consciousness: Alert Patient Behavior: Talkative and Good Eye Contact Mood Description: Apprehensive Affect Description: Apprehensive Ability to Follow Directions: Good Speech Pattern: Spontaneous Speech Memory Description: Intact Hallucinations: None Delusions: Not Present Perceptual Disturbances: Depersonalization Thought Process: Goal Oriented Thought Content: positive for Goal Oriented Depressive Symptoms: Increased Anxiety and Low Self Esteem Judgement: Good Diagnostics Vital Signs (24Hr): Vital Signs - 24 hr 05/23/22 07:05 Temperature 97.8 F Pulse Rate 90 Respiratory Rate 16 Blood Pressure 129/62 Pulse Oximetry 97 Oxygen Delivery Method Room Air Medications Medications Current Medications Acetaminophen (Acetaminophen 325 Mg Tablet) 650 mg PO Q6H PRN PRN Reason: Headache/Pain Mild Scale (1-3) Last Admin: 05/20/22 09:16 Dose: 650 mg Al Hydroxide/Mg Hydroxide (Magnesium Hydrox/Alum Hydrox 30 Ml Oral.Susp) 30 ml PO Q6H PRN PRN Reason: Heartburn/Nausea Alprazolam (Alprazolam 0.5 Mg Tablet) 1 mg PO 0800,1300,2100 [facility] Last Admin: 05/23/22 13:31 Dose: 1 mg Amphetamine/Dextroamphetamine (Dextroamphetamine/Amphetamine Xr 10 Mg Cap.Er.24h) 30 mg PO DAILY [facility] Last Admin: 05/23/22 08:35 Dose: 30 mg Amphetamine/Dextroamphetamine (Dextroamphetamine/Amphetamine Xr 5 Mg Cap.Er.24h) 15 mg PO 1300 [facility] Last Admin: 05/23/22 13:31 Dose: 15 mg Bacitracin (Bacitracin Oint 14 Gm Tube) 1 appl TOPICAL BID [facility]; Protocol Last Admin: 05/23/22 10:51 Dose: Not Given Benztropine Mesylate (Benztropine Mesylate 1 Mg Tablet) 1 mg PO BID [facility] Last Admin: 05/23/22 08:35 Dose: 1 mg Cariprazine (Cariprazine Hcl 3 Mg Capsule) 6 mg PO DAILY [facility] Last Admin: 05/23/22 08:35 Dose: 6 mg Hydroxyzine HCl (Hydroxyzine Hcl 25 Mg Tablet) 25 mg PO BEDTIME PRN PRN Reason: Anxiety Ibuprofen (Ibuprofen 800 Mg Tablet) 800 mg PO Q8H PRN PRN Reason: Pain, Mild (Pain Scale 1-3) Last Admin: 05/02/22 14:24 Dose: 800 mg Lamotrigine (Lamotrigine 25 Mg Tablet) 50 mg PO BID [facility] Last Admin: 05/23/22 08:35 Dose: 50 mg Magnesium Hydroxide (Milk Of Magnesia 30 Ml Oral.Susp) 30 ml PO DAILY PRN PRN Reason: Constipation Last Admin: 04/27/22 15:49 Dose: 30 ml Multi-Ingred Cream/Lotion/Oil/Oint (Mineral Oil/Petrolatum,White 106 Gm Tube) 1 appl TOPICAL TID [facility]; Protocol Last Admin: 05/23/22 14:54 Dose: Not Given Pt Own Medication ( (Act Lozenge 1 Tab)) 1 tab PO BID PRN PRN Reason: Dry Mouth Last Admin: 05/16/22 20:19 Dose: 1 tab Non-Formulary Medication (Patient Own Medication) 1 each PO BID PRN PRN Reason: Dry Mouth Last Admin: 05/23/22 16:05 Dose: 1 each Olanzapine (Olanzapine 5 Mg Tablet) 5 mg PO Q4H PRN PRN Reason: lability, agitation Last Admin: 05/08/22 13:26 Dose: 5 mg Olanzapine (Olanzapine 5 Mg Tablet) 5 mg PO BEDTIME [facility] Last Admin: 05/22/22 20:08 Dose: 5 mg Saliva Substitute (Dry Mouth Benton 60 Ml Benton) 1 spray MUCOUS MEM Q2H PRN PRN Reason: Dry Mouth Last Admin: 05/15/22 11:15 Dose: 1 spray Trazodone HCl (Trazodone Hcl 50 Mg Tablet) 50 mg PO BEDTIME PRN PRN Reason: Insomnia Last Admin: 05/22/22 22:07 Dose: 50 mg Allergies Allergies Allergy/AdvReac Type Severity Reaction Status Date / Time cat dander [cats] Allergy Itchy Eyes Verified 04/25/22 00:28 dog dander [dogs] Allergy Itchy Eyes Verified 04/25/22 00:29 Assessment & Plan Assessment & Plan (1) Substance induced mood disorder: Status: Acute Code(s): F19.94 - Other psychoactive substance use, unspecified with psychoactive substance-induced mood disorder (2) Polysubstance abuse: Status: Acute Code(s): F19.10 - Other psychoactive substance abuse, uncomplicated (3) ADHD: Status: Acute Code(s): F90.9 - Attention-deficit hyperactivity disorder, unspecified type Plan 41 yo female, hx depression, ADHD, anxiety, obsessive qualities and questionable bipolar disorder. Hx of polysubstance abuse with detox in 2020 from Xanax, Adderall. Current OP regime is Xanax, Adderall, Paxil. Psychotic and labile on presentation, question of anand vs substance induced mood sx. Pt at this time, declines referrals and treatment. My treatment is [facility]. Plan: Observe Collateral contacts Continue Haldol prn Initiate Olanzapine Decrease Xanax-taper attempt Decrease Adderall-taper attempt MRI Head secondary to falls-pt refuses Labs-pt refuses Assessment and plan for 05/05/2022 Patient seen case reviewed with nursing staff. Patient seems preoccupied with the fact that she was somehow misunderstood railroaded and gas let it by her partner and her identity perhaps have been stolen. Somewhat expansive not overly depressed insight somewhat limited Patient has been started on Vryalar which should be helpful for bipolar states and mood instability would encourage Adderall taper 05/17/22 Continue current regime. Tolerating Vraylar. 05/18/22 continue current regimen 05/19/22 continue current regimen 05/20/22 Increase Adderall XR to 30 mg daily Decrease Olanzapine to 5 mg hs Increase Lamictal to 50 mg bid 05/22/22 Add Adderall XR 15 mg as pt's afternoon dosage. 05/23/22 Increase Xanax to 1 mg tid I spent minutes with the patient and/or on the patient floor today, greater than?50% of which was spent counseling/coordinating care. Patient educated on: medication risk/benefits and therapeutic strategies Informed Consent: understands Reason for contiued inpatient stay Substantial Risk for: rapid decompensation
[2022-05-23] MEDS: OLANZapine 5 MG TABLET PO (20:09)
[2022-05-23 20:21] VITALS: BP 127/65; PULSE 80
[2022-05-24 06:00] VITALS: BP 103/58; PULSE 80; RESP 18; TEMP 36.7; O2SAT 98
[2022-05-24] MEDS: Benztropine Mesylate 1 MG TABLET PO (08:24)
[2022-05-24] MEDS: Dextroamphetamine/Amphetamine XR 10 MG CAP.ER.24H 30 MG PO (08:24)
[2022-05-24] MEDS: lamoTRIgine 25 MG TABLET 50 MG PO (08:24)
[2022-05-24] MEDS: Cariprazine HCl 3 MG CAPSULE 6 MG PO (08:24)
[2022-05-24] MEDS: ALPRAZolam 0.5 MG TABLET 1 MG PO ×2 (08:27→14:44)
[2022-05-24] MEDS: Milk of Magnesia 30 ML ORAL.SUSP PO (11:13)
--- NOTE | 2022-05-24 13:55 | PM.PSYDC ---
DS: Providers Provider Date of Service: 05/24/22 Date of admission: 04/24/22 22:11 Date of discharge: 05/24/22 Primary care physician: Nonstaff Physician Admitting clinician: Althea Trevino Attending physician on admission: Gregorio Mayers Attending physician on discharge: Gregorio Mayers Discharging clinician: Althea Trevino DS: Diagnosis Discharge Diagnosis (1) Bipolar disorder: Status: Acute (2) Substance induced mood disorder: Status: Resolved (3) Polysubstance abuse: Status: Acute (4) ADHD: Status: Acute (5) PTSD (post-traumatic stress disorder): Status: Acute DS: Medications Discharge Medications Home Medications: Previous Rx's Medication Instructions Recorded alprazolam 0.5 mg tablet 1 mg PO 0800,1300,2100 #0 tabs 05/23/22 alprazolam 1 mg tablet (Xanax) 1 mg PO TID #21 tabs 05/23/22 benztropine 1 mg tablet 1 mg PO BID #60 tabs 05/23/22 cariprazine 3 mg capsule (Vraylar) 6 mg PO DAILY #30 caps 05/23/22 dextroamphetamine-amphetamine ER 15 mg PO BID #60 caps 05/23/22 15 mg 24hr capsule,extend release (Adderall XR) lamotrigine 25 mg tablet 50 mg PO BID #60 tabs 05/23/22 olanzapine 5 mg tablet 5 mg PO BEDTIME #30 tabs 05/23/22 Mental Status Exam Mental Status Exam Patient Appearance: Appropriate Patient Orientation: Person, Place, Time and Situation Level of Consciousness: Alert Patient Behavior: Talkative and Good Eye Contact Mood Description: Apprehensive Affect Description: Apprehensive Ability to Follow Directions: Good Speech Pattern: Spontaneous Speech Memory Description: Intact Hallucinations: None Delusions: Not Present Perceptual Disturbances: Depersonalization Thought Process: Goal Oriented Thought Content: positive for Goal Oriented Depressive Symptoms: Increased Anxiety and Low Self Esteem Judgement: Good Data Data Completed and Pending Completed studies during hospitalization [Text1]: 05/02/22 08:44 Buttock Gram Stain - Final 05/02/22 08:44 Buttock Routine Culture - Final Methicillin Res Staph Aureus DS: Summary Hospital Course Hospital Course: Admission to adult psychiatry for exacerbation of symptoms of bipolar disorder, PTSD, substance abuse. Pt admitted on a combination of xanax, paxil and adderall. Xanax and Adderall decreased, Paxil was stopped. Pt stabilized on a regime of Vraylar, Olanzapine, Lamictal, Benztropine. Xanax and Adderall were stabilized at lower dosages than on admission. Pt has relationship discord and DCF involvement with her children, all who live on [address]. She chose to discharge locally and will live with a friend while she attempts to work on these relationships, and will have out patient care locally. Time spent discussing smoking cessation with patient: 3 to 10 minutes Status at Discharge Functional status at discharge: independent ambulation Overall status at discharge: patient is progressing back to baseline Time Spent with Patient Time attestation: Total time spent providing and/or coordinating discharge services: 35 Time spent: Greater than 30 minutes Discharge Plan Discharge Patient Disposition: [facility] Discharge Diagnosis: Bipolar Disorder PTSD ADHD Polysubstance Abuse Referrals: Crystal Helm [Other] - 1 Week (Referral for [facility] Placement) Keyon Cartwright [Other] - 06/04/22 1:00 pm (Patient follow-up appointment with psychiatric medication provider Appointment is by tele-health) Justin Vikram [Other] - 05/30/22 1:00 pm (Patient follow-up appointment with outpatient therapist following discharge from [facility]. Appointment is by tele-health. Please call [facility] at [phone] to update your phone number so that therapist will be able to contact you. ) Discharge Medications: New olanzapine 5 mg Tablet 5 mg PO BEDTIME Qty: 30 0RF lamotrigine 25 mg Tablet 50 mg PO BID Qty: 60 0RF alprazolam 0.5 mg Tablet 1 mg PO 0800,1300,2100 Qty: 0 0RF benztropine 1 mg Tablet 1 mg PO BID Qty: 60 0RF Vraylar 3 mg Capsule 6 mg PO DAILY Qty: 30 0RF Continued alprazolam [Xanax] 1 mg Tablet 1 mg PO TID Qty: 21 4RF dextroamphetamine-amphetamine [Adderall XR] 15 mg Capsule,Extended Release 24hr 15 mg PO BID Qty: 60 0RF Discontinued paroxetine HCl [Paxil] 10 mg Tablet 10 mg PO DAILY Discharge Orders: Discharge Order (Routine); Ordered 05/24/22 Ordered By: Althea Trevino Diet: Advance to usual diet Activity on Discharge: As tolerated Stand Alone Forms: Patient Portal Discharge page, Community Support Care Plan Goals: Mood stabilization Sobriety Practice Coping Skills Health Concerns: Bipolar Disorder PTSD ADHD Polysubstance Abuse Plan of Treatment: Attend follow up appointments Take medications as directed Practice coping skills Assessment: non-psychotic, non-suicidal Discharge Date/Time: 05/24/22 17:00
[2022-05-24] MEDS: Dextroamphetamine/Amphetamine XR 5 MG CAP.ER.24H 15 MG PO (14:44)
== END 2022-05-24 17:00 | disposition home or self-care (01) | DRG 740 ==
PROVIDERS: Admitting Provider Psychiatry & Neurology Psychiatry; Visit Provider Clinical Nurse Specialist Psychiatric/Mental Health, Adult
DX: F31.9 Bipolar disorder, unspecified (principal); F13.10 Sedative, hypnotic or anxiolytic abuse, uncomplicated; F19.10 Other psychoactive substance abuse, uncomplicated; L02.31 Cutaneous abscess of buttock; F90.9 Attention-deficit hyperactivity disorder, unspecified type; F43.10 Post-traumatic stress disorder, unspecified; Z59.02 Unsheltered homelessness; Z79.899 Other long term (current) drug therapy
CPT/HCPCS: 87071; 87077; 87186; 87205; 93005